=== PATIENT | female | born 1940 | race Caucasian/White ===

== ENCOUNTER 2020-02-02 09:50 | Outpatient (CLI) | payer MEDICARE, SELFPAY ==
--- NOTE | ~2020-02-02 | CT_ITS ---
EXAMINATION: CT abdomen pelvis w con EXAM DATE: 02/02/2020 10:44 INDICATION: Diffuse large B-cell lymphoma. TECHNIQUE: Spiral CT of the abdomen and pelvis was performed following intravenous injection of 100 m L Omnipaque 350. Axial, coronal and sagittal images were reviewed. The dose-length product (DLP) fo r this examination was 989.52 mGy-cm. The exposure was tailored according to patient size (auto mA e xposure control), and iterative reconstruction (ASIR) was used as additional dose reduction technique . Comparison is made to prior examination from 08/31/2019. FINDINGS: Continued interval decrease in size of the left inguinal lymph node, which is difficult to specifically measure given the surrounding halo of fat stranding, but including region measures about 2.3 cm today versus 3.7 cm in August. No other pelvic or retroperitoneal lymphadenopathy. The live r, spleen, adrenal glands and pancreas are unremarkable. Gallbladder is unremarkable. No biliary ob struction. Portal and splenic veins are patent. Kidneys enhance symmetrically. There is no hydrone phrosis. The uterus is unremarkable. Some diffuse bladder wall thickening, could indicate chronic cystitis. Acute cystitis not excludable. There is mild scattered arteriosclerotic disease. The appendix is normal. The stomach and small bowel are unremarkable. There is expected amount of c olonic stool. No free intraperitoneal gas. The heart is normal in size. There are no pericardial or pleural effusions. The lung bases are unremarkable. There are no osteoblastic or osteolytic les ions identified. Moderate to severe thoracolumbar spondylosis. IMPRESSION: Continued interval decrease in size of left inguinal lymph node. Reviewed, dictated and finalized at location A.
[2020-02-02 10:40] LABS: Estimated Glomerular Filt Rate > 60
== END 2020-02-02 09:51 | disposition home or self-care (01) ==
LOC: ANHIMG 09:51
PROVIDERS: PCP Internal Medicine; Visit Provider Internal Medicine Hematology & Oncology
DX: C83.35 Diffuse large B-cell lymphoma, 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 (principal)
CPT/HCPCS: 36415; 74177; 80053; 83615; 85025; Q9967

== ENCOUNTER 2020-05-30 10:40 | Outpatient (CLI) | payer MEDICARE, SELFPAY ==
--- NOTE | ~2020-05-30 | CT_ITS ---
EXAMINATION: CT abdomen pelvis w con INDICATION: Diffuse large cell lymphoma TECHNIQUE: Computed tomographic images of the abdomen and pelvis were obtained after the administrati on of 100 cc of Omnipaque 350 intravenous contrast. The dose-length product (DLP) was 909.13 mGy-cm. Automated exposure control and iterative reconstruction technique were employed. COMPARISON: 02/02/2020, 08/31/2019 FINDINGS: Minimal dependent atelectasis is present in the lung bases. The heart size is normal. The l iver, spleen, pancreas, gallbladder, and adrenal glands are normal. The kidneys are unremarkable. A 2 .8 x 1.7 cm left inguinal lymph node is stable in size. No new lymphadenopathy is identified in the a bdomen or pelvis. There is calcified atherosclerosis of the aorta and many of the other arteries. The re is a tiny fat-containing umbilical hernia. There is severe lumbar spondylosis. There is no free i ntraperitoneal gas or evidence of bowel obstruction. IMPRESSION: 1. Stable left inguinal lymphadenopathy, consistent with treated lymphoma. No new lymphadenopathy [place] ntified. Reviewed, dictated and finalized at location A. IMPRESSION: 1. Stable left inguinal lymphadenopathy, consistent with treated lymphoma. No n ew lymphadenopathy identified.
[2020-05-30 11:35] LABS: Estimated Glomerular Filt Rate > 60
== END 2020-05-30 10:41 | disposition home or self-care (01) ==
PROVIDERS: PCP Internal Medicine; Visit Provider Internal Medicine Hematology & Oncology
DX: C83.35 Diffuse large B-cell lymphoma, 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 (principal)
CPT/HCPCS: 36415; 74177; Q9967

== ENCOUNTER 2020-06-05 10:34 | Outpatient (CLI) | payer MEDICARE, SELFPAY ==
[2020-06-05 10:49] LABS: Basophils Percent Auto 0.9 % (0.2-1.2); Eosinophils Absolute Auto 0.2 K/mm3 (0-0.3); Eosinophils Percent Auto 4.6 % (0-4.4); Hematocrit 39.8 % (37.0-47.0); Hemoglobin 13.3 g/dL (12.0-15.0); Immature Granulocyte Absolute 0.01 K/mm3 (0.00-0.031); Immature Granulocyte Percent A 0.2 % (0-0.5); Lymphocytes Absolute Auto 1.32 K/mm3 (0.9-3.2); Lymphocytes Percent Auto 28.9 % (18.3-44.2); Mean Corpuscular HGB Conc 33.4 g/dl (32-36); Mean Corpuscular Hemoglobin 28.8 pg (26-34); Mean Corpuscular Volume 86.1 fl (80-100); Monocytes Absolute Auto 0.5 K/mm3 (0.1-0.6); Monocytes Percent Auto 11.2 % (2.6-8.5); Neutrophils Absolute Auto 2.5 K/mm3 (1.3-6.7); Neutrophils Percent Auto 54.2 % (45.5-73.1); Platelet Count Result 239 k/mm3 (150-375); Red Blood Count 4.62 M/mm3 (4.2-5.4); Red Cell Distribution Width 14.1 % (11.5-14.5); White Blood Count 4.6 K/mm3 (4.5-10.0)
[2020-06-05 12:26] LABS: Lactate Dehydrogenase 401 U/L (313-618)
[2020-06-05 12:28] LABS: Alanine Aminotransferase 24 U/L (4-35); Albumin Level 4.6 g/dL (3.5-5.1); Alkaline Phosphatase 95 U/L (38-126); Anion Gap 8 mmol/L (8-16); Aspartate Amino Transferase 28 U/L (14-36); Bilirubin,Total 0.4 mg/dL (0.2-1.3); Blood Urea Nitrogen 16 mg/dL (7-17); Calcium 9.7 mg/dL (8.4-10.2); Carbon Dioxide 27 mmol/L (22-30); Chloride 104 mmol/L (98-107); Cholesterol 256 mg/dL (0-200); Estimated Glomerular Filt Rate > 60; Glucose 93 mg/dL (65-105); HDL Direct 64 mg/dL; Potassium 4.3 mmol/L (3.4-5.0); Sodium 139 mmol/L (137-145); Triglycerides 114 mg/dL (<150)
[2020-06-05 12:39] LABS: LDL Cholesterol Direct 154 mg/dL
== END 2020-06-05 10:35 | disposition home or self-care (01) ==
LOC: ANHLAB 10:36
PROVIDERS: PCP Internal Medicine; Visit Provider Internal Medicine Hematology & Oncology
DX: E78.2 Mixed hyperlipidemia (principal)
CPT/HCPCS: 36415; 80053; 80061; 83615; 85025

== ENCOUNTER 2020-06-12 09:14 | Outpatient (CLI) | payer MEDICARE, SELFPAY ==
--- NOTE | 2020-06-12 09:15 | ECG_ITS ---
Measurements Intervals [place] Rate: 70 P: 62 RI: 177 QRS: -16 QRSD: 95 T: 33 QT: 381 QTc: 411 Interpretive Statements SINUS RHYTHM BASELINE ARTIFACT- I, II, III, AVR, AVL, AVF NORMAL ECG Electronically Signed On 06-12-2020 10:37:32 CDT by Jose Finn D.O.
== END 2020-06-12 09:15 | disposition home or self-care (01) ==
PROVIDERS: PCP Internal Medicine; Visit Provider Surgery
DX: E78.5 Hyperlipidemia, unspecified (principal)
CPT/HCPCS: 93005

== ENCOUNTER 2020-06-13 03:42 | Outpatient (CLI) | payer MEDICARE, SELFPAY ==
[2020-06-13 18:37] LABS: SARS-CoV-2 RNA PCR Negative
== END 2020-06-13 03:43 | disposition home or self-care (01) ==
LOC: ANHCOVIDDT 03:44
PROVIDERS: PCP Internal Medicine; Visit Provider Surgery
DX: Z01.812 Encounter for preprocedural laboratory examination (principal); Z20.828 Contact with and (suspected) exposure to other viral communicable diseases
CPT/HCPCS: 87635; C9803; U0003

== ENCOUNTER 2020-06-15 01:10 | Day surgery (SDC) | payer MEDICARE, SELFPAY ==
[2020-06-08 14:06] VITALS: BMI 31.6
[2020-06-15] MEDS: LACTATED RINGERS 1,000 ML 30 ML IV CONT (08:22)
--- NOTE | 2020-06-15 08:29 | PM.IMHP ---
H&P: HPI History of Present Illness Date/Time: 06/15/20 08:29 Chief complaint: Diffuse Large B-Cell Lymphoma Narrative: Kate Ryder is a 79 year old female s/p chemoradiation for diffuse large B cell lymphoma. Pt had R SCV VAD placed 05/[address] Mcmillan. Pt reports no issues c VAD but tx completed 07/31 and radiation completed 09/30. Pt has been following up c oncology and at this point she has been scheduled for VAD removal. Review of Systems Constitutional: Constitutional: Denies body ache(s), Denies chills, Denies fatigue, Denies lethargy, Denies night sweats and Denies weakness Eyes: Eyes: Denies no additional eye complaints ENT: Denies Normal hearing present and Denies dysphagia Cardiovascular: Cardiovascular: Denies chest pain and Denies palpitations Respiratory: Respiratory: Denies dyspnea and Denies dyspnea on exertion Gastrointestinal: Gastrointestinal: Denies abdominal pain, Denies constipation, Denies diarrhea, Denies nausea and Denies vomiting Genitourinary: Genitourinary: Reports no additional female genitourinary complaints Musculoskeletal: Musculoskeletal: Reports no additional musculoskeletal complaints Integumentary/Breasts: Skin/Breast: Reports system reviewed and no additional complaints, except as docu Neurologic: Reports system reviewed and no additional complaints, except as documented Psychiatric: Psychiatric: Reports no additional psychiatric complaints [facility] Family History Family History Father Family history of osteoporosis Family history of hearing loss Mother Family history of osteoporosis Hypertension Asthma Cerebrovascular accident Family history of hearing loss Social History Social History Smoking status: Never smoker Alcohol intake: current Drinks per week: 3 Alcohol use details: WINE Living arrangements: with family Spiritual care concerns: No Meds Home Medications and Allergies Home Medications Medication Instructions Recorded Confirmed Type omeprazole 40 mg PO DAILY 07/30/19 06/08/20 History calcium carbonate 600 mg calcium 600 mg PO DAILY 09/29/19 06/08/20 History (1,500 mg) tablet cranberry concentrate-ascorbic 1 cap PO DAILY 09/29/19 06/08/20 History acid 4,200 mg-20 mg capsule multivitamin 1 tablet PO DAILY 09/29/19 06/08/20 History omega-3 fatty acids 1,000 mg 1,000 mg PO DAILY 09/29/19 06/08/20 History capsule vitamin B complex 1 tablet PO DAILY 09/29/19 06/08/20 History atorvastatin 40 mg tablet 40 mg PO DAILY #90 tablet 06/08/20 06/08/20 Rx Allergies Allergy/AdvReac Type Severity Reaction Status Date / Time adhesive tape Allergy Mild RASH Verified 06/08/20 13:40 aspirin Allergy Mild HIVES Verified 06/08/20 13:40 naproxen Allergy Mild HIVES Verified 06/08/20 13:40 avocado Allergy Unknown feel like Verified 06/08/20 13:40 having flu egg Allergy Unknown Hives Verified 06/08/20 13:40 ibuprofen Allergy Unknown Hives Verified 06/08/20 13:40 Exam Const: General: no acute distress HENMT: Mouth: Yes moist mucous membranes Eyes: General: appearance normal, both eyes and all related structures Pupils: Equal, round and reactive pupils present EOM: EOMs intact bilaterally Neck: Neck: supple and no JVD Lymphatic: lymphadenopathy not noted Resp: Auscultation: clear to auscultation bilaterally Other: R SCV VAD C/D/I Cardio: Rate: regular rate Rhythm: regular rhythm GI: Inspection: non-distended GI Palp: Yes Soft to palpation, Yes Firmness to palpation present (GI), No Tenderness to palpation present (GI) and No Hernia present Skin: General skin exam: normal color and no rashes or lesions noted Neuro: Speech: normal speech Extrem: General: normal to inspection Psych: Mental Status: mental status grossly normal Assessment and Plan Assessment and plan (1) Diffuse large B-cell lymphoma:
--- NOTE | 2020-06-15 08:35 | WPDHPUPDATE1 ---
History and Physical Update Update Date/Time: 06/15/20 08:35 History and Physical has been reviewed, including an updated exam of the patient. There are NO changes in the patient's condition. Risks, benefits, and alternatives have been discussed and questions answered. Patient agrees to proceed with procedure.
[2020-06-15 08:57] VITALS: BP 125/89; PULSE 87; RESP 18; TEMP 36.9; O2SAT 100
--- NOTE | 2020-06-15 09:09 | WPDANESEPPF ---
Anes - Initial Pre Proc Eval Procedure: Operation Date: 06/15/20 09:30 Proposed Procedures p Removal Hien Cath - Natalie Craft MD Date/Time: 06/15/20 09:09 Surgeon: Natalie Craft MD Pre Op Diagnosis: Diffuse Large B-Cell Lymphoma Patient Data Age: 79 Gender: F Height: 5 ft 6 in Weight: 88.3 kg Last Vital Signs Temp 36.9 C 06/15/20 08:57 Pulse 87 06/15/20 08:57 Resp 18 06/15/20 08:57 BP 125/89 06/15/20 08:57 Pulse Ox 100 06/15/20 08:57 Allergies Allergy/AdvReac Type Severity Reaction Status Date / Time adhesive tape Allergy Mild RASH Verified 06/15/20 08:55 aspirin Allergy Mild HIVES Verified 06/15/20 08:55 naproxen Allergy Mild HIVES Verified 06/15/20 08:55 avocado Allergy Unknown feel like Verified 06/15/20 08:55 having flu egg Allergy Unknown Hives Verified 06/15/20 08:55 ibuprofen Allergy Unknown Hives Verified 06/15/20 08:55 Home Medications Medication Instructions Recorded Confirmed Type omeprazole 40 mg PO DAILY 07/30/19 06/15/20 History calcium carbonate 600 mg calcium 600 mg PO DAILY 09/29/19 06/15/20 History (1,500 mg) tablet cranberry concentrate-ascorbic 1 cap PO DAILY 09/29/19 06/15/20 History acid 4,200 mg-20 mg capsule multivitamin 1 tablet PO DAILY 09/29/19 06/15/20 History omega-3 fatty acids 1,000 mg 1,000 mg PO DAILY 09/29/19 06/15/20 History capsule vitamin B complex 1 tablet PO DAILY 09/29/19 06/15/20 History atorvastatin 40 mg tablet 40 mg PO DAILY #90 tablet 06/08/20 06/15/20 Rx Patient hx anesthesia problems: none Family hx anesthesia problems: none PMFSH Family History Family History Father Family history of osteoporosis Family history of hearing loss Mother Family history of osteoporosis Hypertension Asthma Cerebrovascular accident Family history of hearing loss Social History Social History Smoking status: Never smoker Alcohol intake: current Drinks per week: 3 Alcohol use details: WINE Living arrangements: with family Spiritual care concerns: No Anes - Eval Final PreProcedure Day of Procedure 06/15/20 09:09 Patient weight: obese Heart: regular rate and rhythm Lungs: clear to auscultation Airway: Mallampati scale class II Neurological: alert and oriented Last oral intake: >/= 8 hours ASA classification: III Emergent: no Anesthesia type and monitoring: general GIVS and standard monitoring Informed Consent: The patient's anesthetic plan and its attendant risks and benefits were discussed with the patient/family/POA. Questions were solicited and answers provided to the satisfaction of the patient/family/POA.
[2020-06-15] MEDS: ceFAZolin 2 GM/D5W 50 ML 2 GM/50 ML BAG IVPB (09:52)
[2020-06-15] MEDS: BUPIVACAINE/EPINEPHRINE 0.5% 30 ML VIAL 20 ML INFILTRATE (10:05)
[2020-06-15 10:20] VITALS: BP 112/52; PULSE 81; RESP 14; O2SAT 97
--- NOTE | 2020-06-15 10:22 | PM.PROC ---
Procedure Note - Detailed Date of procedure: 06/15/20 Pre-op diagnosis: Diffuse Large B-Cell Lymphoma Post-op diagnosis: same Procedure performed: Removal right chest venous access device Description of procedure: The patient was taken to the operating room placed in the supine position. After adequate induction of MAC anesthesia, the patient was prepped and draped in the normal sterile fashion. A time-out was then done to verify the patient's identity, as well as the procedure being performed. I began by localizing the previous incision line in the right chest and around the port itself. Once this was done, I made an incision through the old incision to the level of the port. I then bluntly dissected around the port, and located the 3 sutures holding the port in place. I then cut the 3 sutures and removed the port from the pocket. I was then able to remove the port and catheter in full. The catheter was noted in the right subclavian vein. I then held pressure at the level of the right subclavian vein for approximately 5 minutes. Hemostasis was noted after pressure was held. I then localized the pocket further and closed the subcutaneous tissue with 3 0 Vicryl suture. I then closed the skin with 4 O Monocryl subcuticular suture. Dermabond was then placed on the wound. The patient tolerated the procedure well, was alert and awake in the operating room postoperatively, and will be transferred to the recovery in stable condition. Implants: none Anesthesia: MAC and local Surgeon: Natalie Craft MD Estimated blood loss (mL): 5 Drains: No Packing: No Pathology: none sent Complications: No immediate complications Condition: stable Disposition: PACU Findings: right-sided VAD
[2020-06-15 10:50] VITALS: BP 162/75; PULSE 77; RESP 16
== END 2020-06-15 11:45 | disposition home or self-care (01) ==
PROVIDERS: PCP Internal Medicine; Visit Provider Surgery
PROC: (CPT 36589; principal; 2020-06-15 09:30)
DX: Z45.2 Encounter for adjustment and management of vascular access device (principal); Z85.72 Personal history of non-Hodgkin lymphomas; Z92.21 Personal history of antineoplastic chemotherapy; Z92.3 Personal history of irradiation; K21.9 Gastro-esophageal reflux disease without esophagitis; E78.5 Hyperlipidemia, unspecified; F33.0 Major depressive disorder, recurrent, mild
CPT/HCPCS: 36590; J0690; J2001; J2704; J3010; J7120

== ENCOUNTER 2020-08-16 13:47 | Outpatient (CLI) | payer MEDICARE, SELFPAY ==
--- NOTE | ~2020-08-16 | MM_ITS ---
EXAMINATION: MM screening morena BI w calvin HISTORY: Screening TECHNIQUE: Craniocaudal and mediolateral oblique 3-D tomosynthesis images were obtained and synthetic 2-D images were generated. CAD analysis was submitted and interpreted. COMPARISON: Comparison to multiple prior studies sequentially, with oldest reviewed study dated 10/2017. BREAST PARENCHYMAL COMPOSITION: There are scattered areas of fibroglandular density. FINDINGS: There is no evidence of suspicious mass, calcification, or architectural distortion to sugg est malignancy in either breast. There has been no suspicious interval change. IMPRESSION: 1. No mammographic evidence of malignancy. 2. Recommend routine screening mammography in one year. BI-RADS Category 1: Negative Reviewed, dictated and finalized at location D. FLEET MAINTENANCE MANAGER
--- NOTE | ~2020-08-16 | DEXA_ITS ---
Bone Density Report Name: Kate Ryder Age: 79 Sex: Female Ethnicity: White Date of : 1940 Indication: postmenopausal; height loss; cancer; Referring Provider: DARRICK SAENZ Study: Bone densitometry was performed. Exam Date: August 16, 2020 Accession number: [id number] Bone Density: Region BMD T-score Z-score Classification AP Spine (L1-L4) 1.179 1.2 3.8 Normal Femoral Neck (Left) 0.675 -1.6 0.6 Osteopenia Total Hip (Left) 0.871 -0.6 1.4 Normal Total Hip Bilateral Avg 0.894 -0.4 1.6 Normal Femoral Neck (Right) 0.716 -1.2 1.0 Osteopenia Total Hip (Right) 0.917 -0.2 1.7 Normal World Health Organization criteria for BMD impression classify patients as: Normal (T-score at or above -1.0), Osteopenia (T-score between -1.0 and -2.5), or Osteoporosis (T-score at or below -2.5). 10-year Fracture Risk(1): Major Osteoporotic Fracture 12% Hip Fracture 2.6% Reported Risk Factors: [place] (), Neck BMD=0.675, BMI=32.1 (1) FRAX(R) Version 3.08. Fracture probability calculated for an untreated patient. Fracture probability may be lower if the patient has received treatment. Previous Exams: Region Exam Age BMD T-score BMD Change BMD Change Date g/cm2 vs Baseline vs Previous AP Spine(L1-L4) 08/16/2020 79 1.179 1.2 -0.016(-1.4%) -0.016(-1.4%) 02/10/2018 77 1.195 1.3 Total Hip(Left) 08/16/2020 79 0.871 -0.6 -0.022(-2.5%) -0.022(-2.5%) 02/10/2018 77 0.893 -0.4 Total Hip(Right) 08/16/2020 79 0.917 -0.2 0.000(0.0%) 0.000(0.0%) 02/10/2018 77 0.917 -0.2 *Denotes significance at 95% confidence level, LSC for AP Spine = 0.022 g/cm2, LSC for Total Hip = 0.027 g/cm2 Clinical Information Provided by Patient: Has used the following medications: Calcium Has the following medical conditions: Cancer Patient maximum height was 68 Menopause Age: 55 No regular weight bearing exercise Onset of menses at age 14 Number of children 2 Impression: The patient has low bone mass, based on the Left Femoral Neck T-score. The patient has an estimated ten-year risk of hip fracture of 2.6% and an estimated ten-year risk of major fracture of 12%, based on the WHO FRAX algorithm. No significant bone loss was observed. Discussion: BONE DENSITY IS LOW AT ONE OR MORE SKELETAL SITES. This patient's lowest T-score is low at one or more skeletal sites. It meets the World Health Organization's (WHO) criteria for ?low bone mass? (T-
== END 2020-08-16 13:48 | disposition home or self-care (01) ==
LOC: ANHIMG 13:49
PROVIDERS: PCP Internal Medicine; Visit Provider Internal Medicine
DX: Z12.31 Encounter for screening mammogram for malignant neoplasm of breast (principal); C83.30 Diffuse large B-cell lymphoma, unspecified site; E78.2 Mixed hyperlipidemia; Z78.0 Asymptomatic menopausal state; M85.852 Other specified disorders of bone density and structure, left thigh; M85.851 Other specified disorders of bone density and structure, right thigh
CPT/HCPCS: 77063; 77067; 77080

== ENCOUNTER 2020-12-21 09:32 | Outpatient (CLI) | payer MEDICARE, SELFPAY ==
[2020-12-21 09:47] LABS: Basophils Percent Auto 0.7 % (0.2-1.2); Eosinophils Absolute Auto 0.2 K/mm3 (0-0.3); Eosinophils Percent Auto 3.1 % (0-4.4); Hemoglobin 13.5 g/dL (12.0-15.0); Immature Granulocyte Absolute 0.02 K/mm3 (0.00-0.031); Immature Granulocyte Percent A 0.3 % (0-0.5); Lymphocytes Absolute Auto 1.47 K/mm3 (0.9-3.2); Lymphocytes Percent Auto 25.1 % (18.3-44.2); Mean Corpuscular HGB Conc 32.9 g/dl (32-36); Mean Corpuscular Hemoglobin 29.2 pg (26-34); Mean Corpuscular Volume 88.6 fl (80-100); Mean Platelet Volume 8.9 fl (7.4-10.4); Monocytes Absolute Auto 0.5 K/mm3 (0.1-0.6); Monocytes Percent Auto 8.5 % (2.6-8.5); Neutrophils Absolute Auto 3.6 K/mm3 (1.3-6.7); Neutrophils Percent Auto 62.3 % (45.5-73.1); Platelet Count Result 248 k/mm3 (150-375); Red Blood Count 4.63 M/mm3 (4.2-5.4); Red Cell Distribution Width 13.2 % (11.5-14.5); White Blood Count 5.9 K/mm3 (4.5-10.0)
[2020-12-21 12:06] LABS: Alanine Aminotransferase 21 U/L (4-35); Albumin Level 4.4 g/dL (3.5-5.1); Alkaline Phosphatase 87 U/L (38-126); Anion Gap 8 mmol/L (8-16); Aspartate Amino Transferase 26 U/L (14-36); Bilirubin,Total 0.4 mg/dL (0.2-1.3); Blood Urea Nitrogen 14 mg/dL (7-17); Calcium 9.5 mg/dL (8.4-10.2); Carbon Dioxide 29 mmol/L (22-30); Chloride 107 mmol/L (98-107); Cholesterol 168 mg/dL (0-200); Estimated Glomerular Filt Rate > 60; Glucose 89 mg/dL (65-105); HDL Direct 64 mg/dL; Potassium 4.5 mmol/L (3.4-5.0); Sodium 144 mmol/L (137-145); Triglycerides 119 mg/dL (<150)
[2020-12-21 12:17] LABS: LDL Cholesterol Direct 72 mg/dL
[2020-12-21 12:22] LABS: Vitamin D 25 Hydroxy 47.6 ng/mL
== END 2020-12-21 09:33 | disposition home or self-care (01) ==
LOC: ANHLAB 09:35
PROVIDERS: PCP Internal Medicine; Visit Provider Internal Medicine
DX: C83.30 Diffuse large B-cell lymphoma, unspecified site (principal); E78.2 Mixed hyperlipidemia; M85.89 Other specified disorders of bone density and structure, multiple sites
CPT/HCPCS: 36415; 80053; 80061; 82306; 84443; 85025

== ENCOUNTER → 2021-01-12 05:19 | Outpatient (CLI) | payer MEDICARE, SELFPAY ==
[2021-01-12 19:22] LABS: SARS-CoV-2 RNA PCR Negative
== END ==
PROVIDERS: PCP Internal Medicine; Visit Provider Internal Medicine Critical Care Medicine
DX: Z01.812 Encounter for preprocedural laboratory examination (principal); Z20.822 Contact with and (suspected) exposure to COVID-19
CPT/HCPCS: C9803; U0003; U0005

== ENCOUNTER 2021-01-15 09:03 | Outpatient (CLI) | payer MEDICARE, SELFPAY ==
--- NOTE | 2021-01-25 10:08 | WPDSLEEPSTUD ---
Sleep Study Ordering Provider: Miguel Ángel White MD Interpreting Physician: Donn Skelton MD Sleep Study Type: CPAP Titration Height: 1.68 m Weight: 90.718 kg Body Mass Index: 32.3 Neck Circumference (inches): 15 [place]: 12 Reason for Sleep Study Patient had a prior sleep study in 2017 which documented presence of severe obstructive sleep apnea. Patient has been using CPAP therapy however she continues to have significant symptomatology including daytime fatigue and daytime sleepiness with an [place] score of 12/24. Patient has comorbid conditions which include hypertension, hypercholesterolemia and gastroesophageal reflux disease. Patient was referred for repeat CPAP titration for these reasons Sleep History history of snoring, daytime sleepiness, daytime fatigue and frequent nocturnal arousals. [facility] Family History Family History Father Family history of osteoporosis Family history of hearing loss Mother Family history of osteoporosis Hypertension Asthma Cerebrovascular accident Family history of hearing loss Social History Social History Smoking status: Never smoker Alcohol intake: current Drinks per week: 3 Spiritual care concerns: No Medications Home Medications Medication Instructions Recorded Confirmed Type calcium carbonate 600 mg calcium 600 mg PO DAILY 09/29/19 12/22/20 History (1,500 mg) tablet cranberry concentrate-ascorbic 1 cap PO DAILY 09/29/19 12/22/20 History acid 4,200 mg-20 mg capsule multivitamin 1 tablet PO DAILY 09/29/19 12/22/20 History omega-3 fatty acids 1,000 mg 1,000 mg PO DAILY 09/29/19 12/22/20 History capsule vitamin B complex 1 tablet PO DAILY 09/29/19 12/22/20 History atorvastatin 40 mg tablet See Rx Instructions .ROUTE 12/04/20 12/22/20 Rx .COMPLEX #90 tablet lisinopril 20 mg tablet 20 mg PO DAILY #30 tablet 12/22/20 12/22/20 Rx omeprazole 40 mg capsule,delayed See Rx Instructions .ROUTE 12/28/20 Rx release .COMPLEX #90 capsule Sleep Procedure Patient underwent overnight polysomnography for the purpose of CPAP titration. Patient used her own mask. The type of mask was not mentioned. Sleep Architecture Total recording time 392 minutes, total sleep time 331 minutes, sleep efficiency 84.6%. Sleep latency 33 minutes, REM latency 55 minutes. Awake after sleep onset 28 minutes, stage N1 1.4%, N2 81%, N3 3.5% and stage R 14.2%. supine sleep 100%. Respiratory Analysis [facility] criteria used During titration patient had 3 obstructive apneas with index 0.5, there were 4 hypopneas with index 0.9. AHI 1.4 all events occurred in non-REM sleep and in supine position. Arousals Total arousals 87 with index 13.3, spontaneous arousals 70,, hypopnea arousals 5, apnea arousals 2. snores arousal 10. Periodic Limb Movements There were no limb movements. Oximetry Data Mean oxygen saturation 95%, lowest saturation 89%. SaO2<90%-0.2Min. Snoring Profile mild intermittent snoring. Cardiac Profile Normal sinus rhythm with average heart rate 62 beats per minute. Range 30 to 127 beats per minute. EEG Profile Unremarkable EEG. Assessment and Plan Additional Plan Diagnosis KELLY G47.37 CPAP data- CPAP was started at 5 cm and was quickly increased to 7 cm due to air hunger. Because of obstructive events CPAP was increased to 9 cm which was the highest pressure reached. At CPAP of 9 cm, 3 hours and 42 minutes of trial was performed with 91% sleep efficiency. 24 minutes and 30 seconds of REM sleep and 2 hours and 55 minutes of non-REM sleep was encountered, all of it in supine position. Patient had 1 obstructive apnea and 1 hypopnea with AHI 0.6. Oxygen saturation remained 94% or above averaging 96%. CPAP appeared well tolerated. Recommendation - patient should continue use of CPAP but at a lower pressure of 9 cm., using appr
[2021-01-25 10:26] VITALS: BMI 32.3
== END 2021-01-15 09:04 | disposition home or self-care (01) ==
LOC: ANHCSM 09:04
PROVIDERS: PCP Internal Medicine; Visit Provider Internal Medicine
DX: R06.83 Snoring (principal); G47.37 Central sleep apnea in conditions classified elsewhere
CPT/HCPCS: 95811

== ENCOUNTER 2021-02-09 12:39 | Outpatient (CLI) | payer MEDICARE, SELFPAY ==
--- NOTE | ~2021-02-09 | CT_ITS ---
EXAMINATION: CT abdomen pelvis w con EXAM DATE: 02/09/2021 13:16 INDICATION: Diffuse large b-cell lymphoma, lymph nodes of inguinal region. TECHNIQUE: Spiral CT of the abdomen and pelvis was performed following intravenous injection of 100 m L Omnipaque 350. Axial, coronal and sagittal images of the abdomen and pelvis were reviewed. The do se-length product (DLP) for this examination was 961.49 mGy-cm. The exposure was tailored according to patient size (auto mA exposure control), and iterative reconstruction (ASIR) was used as additiona l dose reduction technique. Comparison is made to prior examination from 05/30/2020. FINDINGS: Ill-defined low-density region in the left inguinal canal, probably treated lymphoma, appea celio is unchanged compared to prior examination. No retroperitoneal lymphadenopathy. The liver, sple en, adrenal glands and pancreas are unremarkable. Gallbladder is unremarkable. No biliary obstructi on. Portal and splenic veins are patent. Kidneys enhance symmetrically. There is no hydronephrosis . The uterus is anteverted and morphologically normal. The bladder is unremarkable. There are no findings to suggest appendicitis. The stomach and small bowel are unremarkable. There is expected amount of colonic stool. No free intraperitoneal gas. The heart is normal in size. T here are no pericardial or pleural effusions. The lung bases are unremarkable. There are no osteobl astic or osteolytic lesions identified. Advanced thoracolumbar spondylosis. IMPRESSION: Stable ill-defined left inguinal lymph node, treated lymphoma. Reviewed, dictated and finalized at location A.
== END 2021-02-09 12:40 | disposition home or self-care (01) ==
PROVIDERS: PCP Internal Medicine; Visit Provider Internal Medicine Hematology & Oncology
DX: C83.35 Diffuse large B-cell lymphoma, 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 (principal)
CPT/HCPCS: 74177; Q9967

== ENCOUNTER 2021-03-29 11:54 | Outpatient (CLI) | payer MEDICARE, SELFPAY ==
[2021-03-29 17:14] LABS: Anion Gap 10 mmol/L (8-16); Blood Urea Nitrogen 16 mg/dL (7-17); Carbon Dioxide 26 mmol/L (22-30); Chloride 105 mmol/L (98-107); Estimated Glomerular Filt Rate > 60; Glucose 92 mg/dL (65-105); Potassium 4.4 mmol/L (3.4-5.0); Sodium 141 mmol/L (137-145)
== END 2021-03-29 11:55 | disposition home or self-care (01) ==
LOC: ANHLAB 11:59
PROVIDERS: PCP Internal Medicine; Visit Provider Internal Medicine Hematology & Oncology
DX: I10 Essential (primary) hypertension (principal)
CPT/HCPCS: 36415; 80048

== ENCOUNTER → 2021-10-31 01:22 | Outpatient (CLI) | payer MEDICARE, SELFPAY ==
[2021-10-31 13:51] LABS: Influenza A QL RT-PCR Negative (Negative); Influenza B QL RT-PCR Negative (Negative); SARS-CoV-2 RNA PCR Negative
== END ==
PROVIDERS: PCP Internal Medicine; Visit Provider Internal Medicine
DX: R68.89 Other general symptoms and signs (principal); Z20.822 Contact with and (suspected) exposure to COVID-19
CPT/HCPCS: 87502; C9803; U0003; U0005

== ENCOUNTER 2021-12-21 13:59 | Outpatient (CLI) | payer MEDICARE, SELFPAY ==
--- NOTE | ~2021-12-21 | CT_ITS ---
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 Additional sagittal and coronal reconstructions were performed. Automated exposure co ntrol and iterative reconstruction technique were employed. The dose-length product was 485.96 mGy-cm . COMPARISON: Left shoulder radiographs dated 05/09/2021 FINDINGS: Bone alignment is normal. No fracture. Chondrocalcinosis along the humeral head and glenoid. Glenohumeral osteoarthritis with m ild nonuniform joint space narrowing, small marginal osteophytes along the glenoid and moderate-sized marginal osteophytes about the humeral head. Cystic change at the middle facet of the greater tubero sity which can be seen in setting of rotator cuff disease. Mild acromion clavicular osteoarthritis. S oft tissues are normal. The left shoulder with no evident asymmetric muscular atrophy of the rotator cuff or shoulder girdle. Small pneumatocele in the superior segment of the left lower lobe. No pathol ogically enlarged lymphadenopathy at the left axillary visualized left neck or chest. IMPRESSION: 1. Mild to moderate left glenohumeral osteoarthritis with chondrocalcinosis. 2. Mild acromioclavicular osteoarthritis. 3. Cystic change at the middle facet of the greater tuberosity which can be seen in the setting of in fraspinatus tendon rotator cuff disease. Reviewed, dictated and finalized at location A. FINISHER IMPRESSION: 1. Mild to moderate left glenohumeral osteoarthritis with chondrocalcinosis. 2. Mild acromioclavicular osteoarthritis. 3. Cystic change at the middle facet of the greater tuberosity which can be see n in the setting of infraspinatus tendon rotator cuff disease.
== END 2021-12-21 14:00 | disposition home or self-care (01) ==
PROVIDERS: PCP Internal Medicine
DX: M19.012 Primary osteoarthritis, left shoulder (principal)
CPT/HCPCS: 73200

== ENCOUNTER 2022-02-15 14:24 | Outpatient (CLI) | payer MEDICARE, SELFPAY ==
--- NOTE | ~2022-02-15 | CT_ITS ---
EXAMINATION: CT abdomen pelvis w con DATE: 02/15/2022 14:48 INDICATION: Diffuse large B-cell lymphoma. TECHNIQUE: Computed tomography (CT) of the abdomen and pelvis was performed with 100 mL Omnipaque 300 intravenous contrast. Automated exposure control and iterative reconstruction technique were employe d. The dose-length product was 1001.38 mGy-cm. COMPARISON: CT abdomen and pelvis 02/09/2021 FINDINGS: The visualized portions of the lung bases demonstrate mild atelectasis. No pleural effusion . The heart size is normal. No pericardial effusion. The liver, spleen, pancreas, gallbladder, adrena l glands, and right kidney are normal. There is a 6 mm cyst in left kidney. There are no dilated loop s of bowel. There is diverticulosis of the colon without evidence of diverticulitis. The appendix is not visualized. There are no pathologically enlarged lymph nodes. Again seen is fat stranding in the left inguinal region, consistent with scarring from treated lymphoma. There is no free intraperitonea l fluid. Is lumbar dextrocurvature and severe spondylosis. IMPRESSION: 1. No evidence of malignancy. Reviewed, dictated and finalized at location A.
== END 2022-02-15 14:25 | disposition home or self-care (01) ==
LOC: ANHIMG 14:25
PROVIDERS: PCP Internal Medicine; Visit Provider Internal Medicine Hematology & Oncology
DX: C83.35 Diffuse large B-cell lymphoma, 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 (principal)
CPT/HCPCS: 74177; Q9967

== ENCOUNTER 2022-04-22 12:30 | Outpatient (RCR) | payer MEDICARE, SELFPAY ==
--- NOTE | 2022-04-17 15:32 | PTOPEVAL ---
PHYSICAL THERAPY EVALUATION AND PLAN OF CARE Thank you for referring Kate Ryder to [facility].? The patient is scheduled to be seen for therapy? 2x/week for 4 weeks. Please review, sign, date and return this plan of care DANIEL. I agree with and certify that the following plan of care is medically necessary. Referring Physician Date Attending Provider: Earnest Fortune MD Diagnosis total reverse replacement of left shoulder Onset 03/25/22 Subjective Information Chronic history of left Query Text:As Reported By Patient/ shoulder pain for greater than Family a year. total reverse shoulder arthroplasty ~3 weeks ago. Here for evaluation and treatment in physical therapy. Today has a limitation to perform A/AROM and PROM only and external rotation is limited to 30deg at this time. Has a sling that she wears nearly all the time. Does use her hands and but is not using her left shoulder. Self Report Pain Assessment Left Shoulder(s) Reported Pain Level 1 Pain Description Aching,Heavy Greatest Pain Intensity 2 Pain Score Pain Score 1: Self Report Interventions Used Interventions Used By Clinicians Exercise Pain Relief Interventions Used By Ice,Medication Patient Upper Extremity Range of Motion Scapular/ Shoulder Range of Motion Left Shoulder Flexion - Passive 75 Shoulder Lateral Rotation - Passive 22 Upper Extremity Muscle Strength Testing General Upper Extremity Strength Gross Upper Extremity Strength Comments deferred shoulder testing due to surgical precaution; symmetrical staff nurse midwife strength; normal elbow strength PT Clinical Summary Kate is a 81 yo female presenting to outpatient physical therapy 3 wks s/p left total reverse shoulder arthroplasty. She has well managed pain. Incision site is clean with a small scab at proximal end of incision. Incision does have some thickening and instructed her to take regular lotion to and massage the scar avoiding the scab. She demonstrates 75deg passive elevation
--- NOTE | 2022-04-24 15:34 | PCPTNOTE ---
Patient called & cancelled scheduled appointment this date due to to being episode to Covid.
--- NOTE | 2022-05-06 13:10 | PCPTNOTE ---
Patient called & cancelled scheduled appointment this date due to still being tested positive for COVID-19.
--- NOTE | 2022-05-09 09:40 | PCPTNOTE ---
Patient called & cancelled scheduled appointment this date due to having Covid.
--- NOTE | 2022-05-22 08:24 | PCPTNOTE ---
PHYSICAL THERAPY DISCHARGE NOTE Attending Provider: Earnest Fortune Patient:Kate Ryder Date of :1940 Patient has not returned for any further treatments since 04/22/2022, therefore will be discharged at this time. Patient?s initial visit was on 04/17/2022 and had a total of 2 visits. She attended the 2 visits then cancelled all remaining visits due to diagnosis of COVID-19. She will need a new referral for physical therapy if further services are needed. Thank you for referring this patient to [facility]. Please review, sign, date and return this discharge summary DANIEL. I have been updated about the patient's current status and I agree with discharge from the above service at this time. Referring Physician Date
== END 2022-05-22 12:27 | disposition home or self-care (01) ==
LOC: ANHPT 12:30
PROVIDERS: PCP Internal Medicine
DX: Z48.89 Encounter for other specified surgical aftercare (principal)
CPT/HCPCS: 97110; 97140; 97162; 97530

== ENCOUNTER 2022-08-15 14:21 | Outpatient (CLI) | payer MEDICARE, SELFPAY ==
--- NOTE | ~2022-08-15 | MM_ITS ---
EXAMINATION: MM screening [facility] BI w calvin HISTORY: Screening TECHNIQUE: Craniocaudal and mediolateral oblique 3-D tomosynthesis images were obtained and synthetic 2-D images were generated. CAD analysis was submitted and interpreted. COMPARISON: Comparison to multiple prior studies sequentially, with oldest reviewed study dated 10/2017. BREAST PARENCHYMAL COMPOSITION: Breast composed of scattered areas of fibroglandular density FINDINGS: There is no evidence of suspicious mass, calcification, or architectural distortion to sugg est malignancy in either breast. There has been no suspicious interval change. IMPRESSION: 1. No mammographic evidence of malignancy. 2. Recommend routine screening mammography in one year. BI-RADS Category 1: Negative Reviewed, dictated and finalized at location A.
== END 2022-08-15 14:22 | disposition home or self-care (01) ==
PROVIDERS: PCP Internal Medicine; Visit Provider Nurse Practitioner
DX: Z12.31 Encounter for screening mammogram for malignant neoplasm of breast (principal)
CPT/HCPCS: 77063; 77067

== ENCOUNTER 2022-08-20 10:40 | Outpatient (CLI) | payer MEDICARE, SELFPAY ==
--- NOTE | ~2022-08-20 | CT_ITS ---
EXAMINATION: CT abdomen pelvis w con INDICATION: Diffuse large B-cell lymphoma TECHNIQUE: Computed tomographic images of the abdomen and pelvis were obtained after the administrati on of 100 cc of Omnipaque 350 intravenous contrast. The dose-length product (DLP) was 953.24 mGy-cm. Automated exposure control and iterative reconstruction technique were employed. COMPARISON: 02/15/2022 FINDINGS: The lung bases are clear. The heart size is normal. The liver, spleen, pancreas, gallbladde r, and adrenal glands are normal. The right kidney is unremarkable. There is a 7 mm cyst of the left kidney. No pathologically enlarged abdominal or pelvic lymph nodes are identified. There is no free i ntraperitoneal gas or evidence of bowel obstruction. Scarring is again noted in the left inguinal reg ion, consistent with treated lymphoma. There is severe lumbar spondylosis. There is a small umbilica l hernia containing fat. IMPRESSION: 1. No pathologically enlarged abdominal or pelvic lymph nodes. Reviewed, dictated and finalized at location B. MS COUNSEL
[2022-08-20 11:00] LABS: Estimated Glomerular Filt Rate 60
== END 2022-08-20 10:41 | disposition home or self-care (01) ==
PROVIDERS: PCP Internal Medicine; Visit Provider Internal Medicine Hematology & Oncology
DX: C83.35 Diffuse large B-cell lymphoma, 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 (principal)
CPT/HCPCS: 74177; Q9967

== ENCOUNTER 2023-01-03 13:06 | Outpatient (CLI) | payer MEDICARE, SELFPAY ==
[2023-01-03 15:54] LABS: Alanine Aminotransferase 33 U/L (6-35); Albumin Level 4.7 g/dL (3.5-5.1); Alkaline Phosphatase 84 U/L (38-126); Anion Gap 8 mmol/L (8-16); Aspartate Amino Transferase 35 U/L (14-36); Bilirubin,Total 0.6 mg/dL (0.2-1.3); Blood Urea Nitrogen 14 mg/dL (7-17); Calcium 9.7 mg/dL (8.4-10.2); Carbon Dioxide 27 mmol/L (22-30); Chloride 104 mmol/L (98-107); Cholesterol 174 mg/dL (0-200); Estimated Glomerular Filt Rate > 60; Glucose 83 mg/dL (65-110); HDL Direct 40 mg/dL; Potassium 4.2 mmol/L (3.4-5.0); Sodium 139 mmol/L (137-145); Triglycerides 148 mg/dL (<150)
[2023-01-03 16:06] LABS: LDL Cholesterol Direct 83 mg/dL
== END 2023-01-03 13:07 | disposition home or self-care (01) ==
LOC: ANHLAB 13:08
PROVIDERS: Nurse Practitioner; PCP Internal Medicine; Visit Provider Internal Medicine Hematology & Oncology
DX: E78.5 Hyperlipidemia, unspecified (principal); E66.9 Obesity, unspecified
CPT/HCPCS: 36415; 80053; 80061

== ENCOUNTER 2023-08-27 09:03 | Outpatient (CLI) | payer MEDICARE, SELFPAY ==
--- NOTE | ~2023-08-27 | MM_ITS ---
EXAMINATION: MM screening [facility] BI w calvin HISTORY: Screening mammogram TECHNIQUE: Craniocaudal and mediolateral oblique 3-D tomosynthesis images were obtained and synthetic 2-D images were generated. CAD analysis was submitted and interpreted. COMPARISON: 08/15/2022, 08/16/2020, 04/27/2019 BREAST PARENCHYMAL COMPOSITION: There are scattered areas of fibroglandular density. FINDINGS: No suspicious mass, calcification, or architectural distortion are identified in either sena ast to suggest malignancy. There has been no suspicious interval change. IMPRESSION: 1. No mammographic evidence of malignancy. 2. Recommend routine screening mammography while the patient remains in good health. BI-RADS Category 1: Negative Reviewed, dictated and finalized at location A. [facility] IMPRESSION: 1. No mammographic evidence of malignancy. 2. Recommend routine screening mammography while the patient remains in good he alth. BI-RADS Category 1: Negative
--- NOTE | ~2023-08-27 | DEXA_ITS ---
Bone Density Report Name: JACQUELYN YOUNGBLOOD Age: 82 Sex: Female Ethnicity: White Date of : 1940 Indication: postmenopausal; screening for osteoporosis; height loss; prior fracture; cancer; Referring Provider: KRISTAN OZUNA Study: Bone densitometry was performed. Exam Date: August 27, 2023 Accession number: [id number] Bone Density: Region BMD T-score Z-score Classification AP Spine(L1-L4) 1.195 1.3 4.1 Normal Femoral Neck (Left) 0.672 -1.6 0.8 Osteopenia Total Hip (Left) 0.904 -0.3 1.8 Normal Femoral Neck (Right) 0.726 -1.1 1.2 Osteopenia Total Hip (Right) 0.904 -0.3 1.8 Normal Total Hip Mean 0.904 -0.3 1.8 Normal World Health Organization criteria for BMD impression classify patients as: Normal (T-score at or above -1.0), Osteopenia (T-score between -1.0 and -2.5), or Osteoporosis (T-score at or below -2.5). 10-year Fracture Risk: FRAX not reported because: Prior hip or vertebral fracture Clinical Information Provided by Patient: Have had a previous hip or vertebral fracture Has had a low trauma fracture Has used the following medications: Vitamin D, Calcium Has the following medical conditions: Cancer Patient maximum height was 67.75 Menopause Age: 55 No regular weight bearing exercise Onset of menses at age 14 Number of children 2 Impression: The patient has low bone mass, based on the Left Femoral Neck T-score. The patient has risk factors, including: previous fracture. Discussion: INCREASED RISK OF FRACTURE DUE TO HISTORY OF FRACTURE. The patient's previous fracture puts the patient at high risk of a future fracture. In untreated patients, the risk of osteoporotic fracture increases approximately two-fold for each 1.0 SD decrease in T-score. Low bone density is not the only risk factor for fracture; also consider factors such as patient's age, frailty or poor health, risk of falling, risk of injury, previous osteoporotic fracture, family history of osteoporosis, cigarette smoking, low body weight, etc. Not everyone with a low trauma fracture has osteoporosis; osteomalacia and other metabolic bone disorders should also be considered. Patients who have osteoporosis should be evaluated for specific diseases and conditions (secondary causes) that may cause or contribute to bone loss and fracture risk. National Osteoporosis Foundation (NOF) recommends pharmacologic intervention for patients with a prior hip or vertebral fracture regardless of BMD T-score. The patient should follow a healthful lifestyle (good nutrition with adequate calcium and vitamin D, and appropriate weight-bearing exercise). Follow-Up: Consider a repeat BMD and Vertebral Fracture Assessment (VFA) exam in 2 years or sooner if medically necessary, to reassess this patient's status. Reported by: [facility] on 08/13
== END 2023-08-27 09:04 | disposition home or self-care (01) ==
LOC: ANHIMG 09:05
PROVIDERS: PCP Family Medicine; Visit Provider Family Medicine
DX: Z12.31 Encounter for screening mammogram for malignant neoplasm of breast (principal); Z78.0 Asymptomatic menopausal state; M85.89 Other specified disorders of bone density and structure, multiple sites
CPT/HCPCS: 77063; 77067; 77080

== ENCOUNTER 2023-08-28 09:47 | Outpatient (CLI) | payer MEDICARE, SELFPAY ==
--- NOTE | ~2023-08-28 | CT_ITS ---
CT of the Abdomen and Pelvis: Indication: B-cell lymphoma Technique: 2.5 mm axial scans were obtained through the abdomen and pelvis following intravenous adm inistration of 100 cc of Omnipaque 350. Dose reduction technique was used on this scan by utilizing a utomated exposure control and iterative reconstruction technique. The dose-length product (DLP) was 1 019.02 mGy-cm. COMPARISON: 08/20/2022 Findings: Scans through the lung bases are unremarkable. The liver, spleen, pancreas, gallbladder, adrenals and kidneys are within normal limits. No evidence of aortic aneurysm. No lymphadenopathy. No bowel obstruction or bowel wall thickening. There is no evidence to suggest acute appendicitis. Images through the pelvis were performed. Possible mild urinary bladder wall thickening. No pelvic ma ss seen. No ascites. Impression: No abnormal lymphadenopathy seen. No evidence for active malignancy or metastatic disease. Possible mild urinary bladder wall thickening versus underdistention. Correlate for cystitis/UTI. Reviewed, dictated and finalized at location . ATIONS PLANT ATTENDANT Impression: No abnormal lymphadenopathy seen. No evidence for active malignancy or metastat ic disease. Possible mild urinary bladder wall thickening versus underdistention. Correlate for cystitis/UTI.
[2023-08-28 10:11] LABS: Estimated Glomerular Filt Rate > 60
== END 2023-08-28 09:48 | disposition home or self-care (01) ==
PROVIDERS: PCP Family Medicine; Visit Provider Internal Medicine Hematology & Oncology
DX: C83.35 Diffuse large B-cell lymphoma, 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 (principal)
CPT/HCPCS: 74177; Q9967

== ENCOUNTER 2023-09-03 10:17 | Outpatient (CLI) | payer MEDICARE, SELFPAY ==
[2023-09-03 10:31] LABS: Basophils Absolute Auto 0.1 K/mm3 (0.0-0.1); Basophils Percent Auto 0.9 % (0.2-1.2); Eosinophils Absolute Auto 0.4 K/mm3 (0-0.3); Eosinophils Percent Auto 7.9 % (0-4.4); Hematocrit 40.1 % (37.0-47.0); Hemoglobin 13.2 g/dL (12.0-15.0); Immature Granulocyte Absolute 0.01 K/mm3 (0.00-0.031); Immature Granulocyte Percent A 0.2 % (0-0.5); Lymphocytes Percent Auto 35.8 % (18.3-44.2); Mean Corpuscular HGB Conc 32.9 g/dl (32-36); Mean Corpuscular Hemoglobin 29.4 pg (26-34); Mean Corpuscular Volume 89.3 fl (80-100); Mean Platelet Volume 8.4 fl (7.4-10.4); Monocytes Absolute Auto 0.6 K/mm3 (0.1-0.6); Monocytes Percent Auto 10.9 % (2.6-8.5); Neutrophils Absolute Auto 2.4 K/mm3 (1.3-6.7); Neutrophils Percent Auto 44.3 % (45.5-73.1); Platelet Count Result 242 k/mm3 (150-375); Red Blood Count 4.49 M/mm3 (4.2-5.4); Red Cell Distribution Width 12.9 % (11.5-14.5); White Blood Count 5.3 K/mm3 (4.5-10.0)
[2023-09-03 10:36] LABS: Blood Urea Nitrogen 13 mg/dL (8-26); Carbon Dioxide 28 mmol/L (22-30); Chloride 103 mmol/L (98-109); Estimated Glomerular Filt Rate > 60; Glucose 78 mg/dL (70-105); Ionized Calcium (POC) 1.27 mmol/L (1.11-1.31); Sodium 144 mmol/L (138-146)
[2023-09-03 11:42] LABS: Alanine Aminotransferase 29 U/L (6-35); Albumin Level 4.5 g/dL (3.5-5.1); Alkaline Phosphatase 61 U/L (38-126); Anion Gap 12 mmol/L (8-16); Aspartate Amino Transferase 32 U/L (14-36); Bilirubin,Total 0.5 mg/dL (0.2-1.3); Blood Urea Nitrogen 14 mg/dL (7-17); Calcium 9.9 mg/dL (8.4-10.2); Carbon Dioxide 27 mmol/L (22-30); Chloride 104 mmol/L (98-107); Estimated Glomerular Filt Rate > 60; Glucose 76 mg/dL (65-110); Lactate Dehydrogenase 190 U/L (120-246); Sodium 143 mmol/L (137-145)
== END 2023-09-03 10:18 | disposition home or self-care (01) ==
LOC: ANHLAB 10:19
PROVIDERS: PCP Family Medicine; Visit Provider Internal Medicine Hematology & Oncology
DX: C83.35 Diffuse large B-cell lymphoma, 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 (principal)
CPT/HCPCS: 36415; 80047; 80053; 81001; 83615; 85025; 87077; 87086; 87186

== ENCOUNTER 2023-09-03 15:09 | Outpatient (CLI) | payer MEDICARE, SELFPAY ==
[2023-09-03 16:28] LABS: Appearance Urine Clear (Clear); Bacteria Urine 4+ /hpf; Bilirubin Urine Negative (Negative); Blood Urine Negative (Negative); Color Urine Dark Yellow (Yellow); Glucose Urine UA Negative (Negative); Ketones Urine Negative (Negative); Leukocyte Esterase Ur Trace LEU/UL (Negative); Nitrate Urine Negative (Negative); Non Pathogenic Casts 0-2; Protein Urine Negative (Negative); RBC Urine 0-2 /hpf (0-2); Specific Grav Ur 1.008 (1.001-1.035); Squamous Epithelial Cell Urine Occasional /hpf (Few); Urobilinogen Urine 0.2 mg/dL (<2.0); WBC Urine 21-50 /hpf
[2023-09-03 16:35] LABS: Add Urine Microscopic? YES
== END 2023-09-03 15:10 | disposition home or self-care (01) ==
LOC: ANHLAB 15:11
PROVIDERS: Nurse Practitioner; PCP Family Medicine; Visit Provider Internal Medicine Hematology & Oncology
DX: R39.9 Unspecified symptoms and signs involving the genitourinary system (principal)
CPT/HCPCS: 81001; 87077; 87086; 87186

== ENCOUNTER 2023-11-04 13:18 | Outpatient (CLI) | payer MEDICARE, SELFPAY ==
--- NOTE | ~2023-11-04 | XR_ITS ---
EXAMINATION: XR hip BI 2V w AP pelvis DATE: 11/04/2023 13:44 INDICATION: Right hip pain. TECHNIQUE: An anteroposterior view of the pelvis and 2 views of each hip were obtained. COMPARISON: Left hip radiographs 05/05/2018 FINDINGS: There is lumbar dextrocurvature and severe spondylosis. No fracture. There is moderate oste oarthritis of the hips. IMPRESSION: 1. Moderate osteoarthritis of the hips. Reviewed, dictated and finalized at location E. [facility]
== END 2023-11-04 13:19 | disposition home or self-care (01) ==
PROVIDERS: PCP Family Medicine; Visit Provider Orthopaedic Surgery
DX: M25.551 Pain in right hip (principal)
CPT/HCPCS: 73521

== ENCOUNTER 2023-11-12 10:32 | Outpatient (CLI) | payer MEDICARE, SELFPAY ==
[2023-11-12 13:05] LABS: Alanine Aminotransferase 25 U/L (6-35); Albumin Level 4.4 g/dL (3.5-5.1); Alkaline Phosphatase 67 U/L (38-126); Aspartate Amino Transferase 30 U/L (14-36); Bilirubin,Total 0.5 mg/dL (0.2-1.3)
[2023-11-12 13:29] LABS: Hepatitis B Surface Antigen Negative (Negative)
[2023-11-12 13:34] LABS: HAV RESULT Negative (Negative); Hepatitis B Core IgM Result Negative (Negative)
[2023-11-12 13:46] LABS: Hepatitis C Virus Antibody Negative (Negative)
== END 2023-11-12 10:33 | disposition home or self-care (01) ==
PROVIDERS: PCP Family Medicine; Visit Provider Internal Medicine Hematology & Oncology
DX: R74.01 Elevation of levels of liver transaminase levels (principal); C83.30 Diffuse large B-cell lymphoma, unspecified site; E55.9 Vitamin D deficiency, unspecified; E78.5 Hyperlipidemia, unspecified; G47.33 Obstructive sleep apnea (adult) (pediatric); I10 Essential (primary) hypertension; K21.9 Gastro-esophageal reflux disease without esophagitis; M19.90 Unspecified osteoarthritis, unspecified site; M85.80 Other specified disorders of bone density and structure, unspecified site
CPT/HCPCS: 36415; 80074; 80076

== ENCOUNTER 2024-02-10 11:13 | Outpatient (CLI) | payer MEDICARE, SELFPAY ==
[2024-02-10 12:27] LABS: IFOB Positive Control Positive; Immunochemical Fecal Occult Bl Negative (N)
== END 2024-02-10 11:14 | disposition home or self-care (01) ==
LOC: ANHLAB 11:15
PROVIDERS: PCP Family Medicine; Visit Provider Nurse Practitioner Family
DX: K92.1 Melena (principal); M25.551 Pain in right hip
CPT/HCPCS: 82274

== ENCOUNTER 2024-02-19 15:46 | Emergency (ER) | payer MEDICARE, SELFPAY ==
[2024-02-19 16:00] VITALS: BP 131/84; PULSE 114; RESP 16; TEMP 37.7; O2SAT 97
--- NOTE | 2024-02-19 16:04 | ED.GENADULT ---
HPI - General Adult General Chief complaint: Urogenital-Female Stated complaint: Fever/Sore Throat/Uti Symptoms Time Seen by Provider: 02/19/24 16:04 Source: patient, RN notes reviewed and old records reviewed Mode of arrival: ambulatory Limitations: no limitations History of Present Illness HPI narrative: 83-year-old female to [facility] with complaint dysuria and frequency that started 5 days ago, sore throat that started 3 days ago and fever that started 2 days ago. patient also endorses lower abdominal pressure started yesterday. Patient has attempted to treat at home with Tylenol mild relief. Patient denies hematuria, nausea, vomiting, bowel changes, headache, myalgias. Patient able to tolerate fluids by mouth. Patient in no acute distress and able to speak in full sentences. Related Data Home Medications Medication Instructions Recorded Confirmed calcium carbonate 600 mg PO DAILY 09/29/19 02/05/24 cranberry concentrate-ascorbic 1 cap PO DAILY 09/29/19 02/05/24 acid 4,200 mg-20 mg capsule multivitamin 1 tablet PO DAILY 09/29/19 02/05/24 omega-3 fatty acids 1,000 mg 1,000 mg PO DAILY 09/29/19 02/05/24 capsule (Fish Oil Concentrate) vitamin B complex 1 tablet PO DAILY 09/29/19 02/05/24 diphenhydramine 25 1 tablet PO QHS PRN 01/22/23 02/05/24 mg-acetaminophen 500 mg tablet (Tylenol PM Extra Strength) biotin 5 mg capsule 5 mg PO DAILY 03/25/23 02/05/24 Allergies Allergy/AdvReac Type Severity Reaction Status Date / Time adhesive tape Allergy Mild RASH Verified 02/05/24 13:48 aspirin Allergy Mild HIVES Verified 02/05/24 13:48 naproxen Allergy Mild HIVES Verified 02/05/24 13:48 avocado Allergy Unknown feel like Verified 02/05/24 13:48 having flu egg Allergy Unknown Hives Verified 02/05/24 13:48 ibuprofen Allergy Unknown Hives Verified 02/05/24 13:48 Review of Systems Review of Systems: All systems reviewed & are unremarkable except as noted in HPI and below Constitutional: Constitutional: Reports as per HPI, Reports fever(s) and Reports lethargy Eyes: Eyes: Reports no additional eye complaints ENT: Reports as per HPI and Reports sore throat Cardiovascular: Cardiovascular: Reports no additional cardiovascular complaints, Denies chest pain and Denies dyspnea Respiratory: Respiratory: Reports no additional respiratory complaints, Denies cough and Denies dyspnea Genitourinary: Genitourinary: Reports as per HPI, Reports nocturia, Reports dysuria and Reports flank pain Musculoskeletal: Musculoskeletal: Reports no additional musculoskeletal complaints Neurologic: Reports system reviewed and no additional complaints, except as documented Psychiatric: Psychiatric: Reports no additional psychiatric complaints [facility] Past Medical History Medical History Arthritis Degenerative arthritis of knee, bilateral Dry eye Essential hypertension GERD (gastroesophageal reflux disease) History of esophageal dilatation Hyperlipidemia Mild episode of recurrent major depressive disorder Non-Hodgkin lymphoma 2019 Obesity (BMI 30-39.9) KELLY (obstructive sleep apnea) Osteopenia Primary osteoarthritis, left shoulder Surgical History Surgical History History of arthroscopy of left knee History of left shoulder replacement [facility] History of neck surgery tumor removed from back of neck History of sinus surgery History of surgical removal of ganglion cyst History of tonsillectomy Family History Family History Father Family history of osteoporosis Family history of hearing loss CHF (congestive heart failure) Mother Family history of osteoporosis Hypertension Asthma Cerebrovascular accident Family history of hearing loss Social History Social History Jesika
== END 2024-02-19 16:34 | disposition home or self-care (01) ==
PROVIDERS: Emergency Provider Nurse Practitioner Family; PCP Family Medicine
DX: N39.0 Urinary tract infection, site not specified (principal); B96.20 Unspecified Escherichia coli [E. coli] as the cause of diseases classified elsewhere; J02.9 Acute pharyngitis, unspecified; M17.0 Bilateral primary osteoarthritis of knee; I10 Essential (primary) hypertension; K21.9 Gastro-esophageal reflux disease without esophagitis; E78.5 Hyperlipidemia, unspecified; E66.9 Obesity, unspecified; Z68.32 Body mass index [BMI] 32.0-32.9, adult; M85.80 Other specified disorders of bone density and structure, unspecified site; M19.012 Primary osteoarthritis, left shoulder; Z85.72 Personal history of non-Hodgkin lymphomas
CPT/HCPCS: 81003; 87077; 87081; 87086; 87088; 87186; 87880; 99213; G0463

== ENCOUNTER 2024-03-01 11:14 | Outpatient (CLI) | payer MEDICARE, SELFPAY ==
[2024-03-01 11:28] LABS: Basophils Percent Auto 0.1 % (0.2-1.2); Eosinophils Percent Auto 0.1 % (0-4.4); Hematocrit 39.4 % (37.0-47.0); Lymphocytes Absolute Auto 1.73 K/mm3 (0.9-3.2); Lymphocytes Percent Auto 17.6 % (18.3-44.2); Mean Platelet Volume 8.3 fl (7.4-10.4); Monocytes Absolute Auto 0.4 K/mm3 (0.1-0.6); Monocytes Percent Auto 3.8 % (2.6-8.5); Neutrophils Absolute Auto 7.6 K/mm3 (1.3-6.7); Neutrophils Percent Auto 77.4 % (45.5-73.1); Platelet Count Result 446 k/mm3 (150-375); Red Blood Count 4.33 M/mm3 (4.2-5.4); Red Cell Distribution Width 13.4 % (11.5-14.5); White Blood Count 9.8 K/mm3 (4.5-10.0)
[2024-03-01 16:40] LABS: Alanine Aminotransferase 27 U/L (6-35); Albumin Level 4.4 g/dL (3.5-5.1); Alkaline Phosphatase 71 U/L (38-126); Anion Gap 6 mmol/L (4-12); Aspartate Amino Transferase 24 U/L (14-36); Bilirubin,Total 0.5 mg/dL (0.2-1.3); Blood Urea Nitrogen 21 mg/dL (7-17); Calcium 9.8 mg/dL (8.4-10.2); Carbon Dioxide 29 mmol/L (22-30); Chloride 103 mmol/L (98-107); Estimated Glomerular Filt Rate > 60; Glucose 100 mg/dL (65-110); Lactate Dehydrogenase 167 U/L (120-246); Potassium 4.1 mmol/L (3.4-5.0); Sodium 138 mmol/L (137-145)
== END 2024-03-01 11:15 | disposition home or self-care (01) ==
LOC: ANHLAB 11:16
PROVIDERS: PCP Family Medicine; Visit Provider Internal Medicine Hematology & Oncology
DX: C83.35 Diffuse large B-cell lymphoma, 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 (principal)
CPT/HCPCS: 36415; 80053; 83615; 85025

== ENCOUNTER 2024-03-25 11:23 | Outpatient (CLI) | payer MEDICARE, SELFPAY ==
[2024-03-25 12:04] LABS: Appearance Urine Clear (Clear); Bacteria Urine None Seen /hpf; Bilirubin Urine Negative (Negative); Blood Urine Negative (Negative); Color Urine Dark Yellow (Yellow); Glucose Urine UA Negative (Negative); Ketones Urine Negative (Negative); Leukocyte Esterase Ur 1+ LEU/UL (Negative); Need Manual Microscopic Reviewed; Nitrate Urine Negative (Negative); Non Pathogenic Casts 0-2; Protein Urine Negative (Negative); RBC Urine 0-2 /hpf (0-2); Specific Grav Ur 1.006 (1.001-1.035); Squamous Epithelial Cell Urine None Seen /hpf (Few); Urobilinogen Urine 0.2 mg/dL (<2.0); WBC Urine 0-5 /hpf (0-3); pH Urine 7.5 (5.0-9.0)
[2024-03-25 12:13] LABS: Add Urine Microscopic? YES
== END 2024-03-25 11:24 | disposition home or self-care (01) ==
LOC: ANHLAB 11:26
PROVIDERS: PCP Family Medicine; Visit Provider Nurse Practitioner Family
DX: R30.0 Dysuria (principal)
CPT/HCPCS: 81001; 87086; 87088

== ENCOUNTER 2024-04-30 12:13 | Outpatient (CLI) | payer MEDICARE, SELFPAY ==
--- NOTE | ~2024-04-30 | XR_ITS ---
XR knee LT min 4V 04/30/2024 12:38 Indication: Osteoarthritis of the knees Procedure: 4 views left knee Comparison: 07/03/2011 Findings: There has been progression of moderate tricompartment osteoarthritis of the left knee. Ther e is chondrocalcinosis. No acute fracture or traumatic malalignment. Small knee effusion. Impression: 1: Interval progression of moderate tricompartment osteoarthritis of the left knee. Reviewed, dictated and finalized at location B. Impression: 1: Interval progression of moderate tricompartment osteoarthritis of the left k nee.
--- NOTE | ~2024-04-30 | XR_ITS ---
XR knee RT min 4V 04/30/2024 12:38 Indication: Right knee pain Procedure: 4 views right knee Comparison: 01/29/2012 Findings: There is moderate tricompartment osteoarthritis. There is chondrocalcinosis. No significant joint effusion. No acute fracture or traumatic malalignment. Impression: 1: Progression of moderate tricompartment osteoarthritis of the right knee. Reviewed, dictated and finalized at location B. Impression: 1: Progression of moderate tricompartment osteoarthritis of the right knee.
--- NOTE | ~2024-04-30 | XR_ITS ---
AP view of the pelvis and AP and lateral views of the bilateral hip Clinical history: Pain Findings: No acute fracture or dislocation is seen. Osseous alignment is anatomic. There is mild dege nerative change of the right hip joint. Left hip joint intact. Soft tissues are unremarkable. Impression: Mild right hip joint degenerative change. Reviewed, dictated and finalized at location . Impression: Mild right hip joint degenerative change.
== END 2024-04-30 12:14 | disposition home or self-care (01) ==
LOC: ANHIMG 12:17
PROVIDERS: PCP Family Medicine; Visit Provider Orthopaedic Surgery
DX: M17.0 Bilateral primary osteoarthritis of knee (principal); M16.0 Bilateral primary osteoarthritis of hip
CPT/HCPCS: 73521; 73564

== ENCOUNTER 2024-05-20 11:30 | Outpatient (CLI) | payer MEDICARE, SELFPAY ==
[2024-05-20 11:49] LABS: Hematocrit 39.3 % (37.0-47.0); Mean Corpuscular HGB Conc 33.1 g/dl (32-36); Mean Corpuscular Volume 90.6 fl (80-100); Mean Platelet Volume 8.9 fl (7.4-10.4); Platelet Count Result 274 k/mm3 (150-375); Red Blood Count 4.34 M/mm3 (4.2-5.4); Red Cell Distribution Width 13.2 % (11.5-14.5); White Blood Count 6.2 K/mm3 (4.5-10.0)
[2024-05-20 13:19] LABS: Alanine Aminotransferase 22 U/L (6-35); Albumin Level 4.5 g/dL (3.5-5.1); Alkaline Phosphatase 62 U/L (38-126); Anion Gap 11 mmol/L (4-12); Aspartate Amino Transferase 27 U/L (14-36); Bilirubin,Total 0.4 mg/dL (0.2-1.3); Blood Urea Nitrogen 19 mg/dL (7-17); Calcium 9.6 mg/dL (8.4-10.2); Carbon Dioxide 25 mmol/L (22-30); Chloride 103 mmol/L (98-107); Cholesterol 167 mg/dL (0-200); Estimated Glomerular Filt Rate > 60; Glucose 93 mg/dL (65-110); HDL Direct 65 mg/dL; Potassium 4.2 mmol/L (3.4-5.0); Sodium 139 mmol/L (137-145); Triglycerides 107 mg/dL (<150)
[2024-05-20 13:29] LABS: LDL Cholesterol Direct 65 mg/dL
== END 2024-05-20 11:31 | disposition home or self-care (01) ==
LOC: ANHLAB 11:32
PROVIDERS: PCP Family Medicine; Visit Provider Family Medicine
DX: C83.30 Diffuse large B-cell lymphoma, unspecified site (principal); E55.9 Vitamin D deficiency, unspecified; E66.9 Obesity, unspecified; G47.33 Obstructive sleep apnea (adult) (pediatric); I10 Essential (primary) hypertension; R74.01 Elevation of levels of liver transaminase levels
CPT/HCPCS: 36415; 80053; 80061; 82306; 85027

== ENCOUNTER 2024-05-21 15:46 | Outpatient (CLI) | payer MEDICARE, SELFPAY ==
--- NOTE | 2024-05-21 15:53 | ECG_ITS ---
Test Date: 2024-05-21 16:01:21 Measurements Intervals [place] Rate: 84 P: 75 TN: 200 QRS: -26 QRSD: 98 T: 54 QT: 360 QTc: 428 Interpretive Statements SINUS RHYTHM BORDERLINE LEFT AXIS DEVIATION [QRS AXIS < -20] LOW QRS VOLTAGE IN PRECORDIAL LEADS [QRS DEFLECTION < 1.0 mV IN CHEST LEADS] No previous ECG available for comparison Electronically Signed On 05-23-2024 13:20:26 CDT by Trevor Rasheed M.D.
== END 2024-05-21 15:47 | disposition home or self-care (01) ==
PROVIDERS: PCP Family Medicine; Visit Provider Orthopaedic Surgery
DX: I10 Essential (primary) hypertension (principal)
CPT/HCPCS: 93005

== ENCOUNTER 2024-05-25 12:25 | Outpatient (CLI) | payer MEDICARE, SELFPAY ==
[2024-05-25 13:28] LABS: Add Urine Microscopic? YES; Appearance Urine Clear (Clear); Bacteria Urine None Seen /hpf; Bilirubin Urine Negative (Negative); Blood Urine Negative (Negative); Color Urine Yellow (Yellow); Glucose Urine UA Negative (Negative); Ketones Urine Negative (Negative); Leukocyte Esterase Ur Trace LEU/UL (Negative); Nitrate Urine Negative (Negative); Non Pathogenic Casts 0-2; Protein Urine Negative (Negative); RBC Urine 0-2 /hpf (0-2); Specific Grav Ur 1.009 (1.001-1.035); Squamous Epithelial Cell Urine None Seen /hpf (Few); Urobilinogen Urine 0.2 mg/dL (<2.0); WBC Urine 0-5 /hpf (0-3)
== END 2024-05-25 12:26 | disposition home or self-care (01) ==
LOC: ANHLAB 12:31
PROVIDERS: PCP Family Medicine; Visit Provider Family Medicine
DX: R35.0 Frequency of micturition (principal); R39.9 Unspecified symptoms and signs involving the genitourinary system
CPT/HCPCS: 81001; 87086; 87088

== ENCOUNTER 2024-07-16 11:52 | Outpatient (CLI) | payer MEDICARE, SELFPAY ==
[2024-07-16 13:38] LABS: Basophils Percent Auto 0.7 % (0.2-1.2); Eosinophils Absolute Auto 0.2 K/mm3 (0-0.3); Eosinophils Percent Auto 3.2 % (0-4.4); Hematocrit 39.9 % (37.0-47.0); Hemoglobin 13.3 g/dL (12.0-15.0); Immature Granulocyte Absolute 0.01 K/mm3 (0.00-0.031); Immature Granulocyte Percent A 0.2 % (0-0.5); Lymphocytes Absolute Auto 2.14 K/mm3 (0.9-3.2); Mean Corpuscular HGB Conc 33.3 g/dl (32-36); Mean Corpuscular Hemoglobin 29.6 pg (26-34); Mean Corpuscular Volume 88.7 fl (80-100); Mean Platelet Volume 8.7 fl (7.4-10.4); Monocytes Absolute Auto 0.6 K/mm3 (0.1-0.6); Monocytes Percent Auto 9.6 % (2.6-8.5); Neutrophils Percent Auto 50.3 % (45.5-73.1); Platelet Count Result 266 k/mm3 (150-375); Red Cell Distribution Width 12.7 % (11.5-14.5)
[2024-07-16 13:51] LABS: Albumin Level 4.6 g/dL (3.5-5.1); Estimated Glomerular Filt Rate > 60; Glucose 88 mg/dL (65-110)
[2024-07-16 13:53] LABS: Prothrombin Time 13.8 Seconds (11.1-14.7)
[2024-07-16 13:54] LABS: Partial Thromboplastin Time 27.3 Seconds (22.3-36.8)
[2024-07-16 14:13] LABS: Hemoglobin A1C 5.9 % (<5.7)
[2024-07-16 14:13] LABS: Urine Cotinine NEGATIVE
[2024-07-16 14:49] LABS: MRSA (PCR) NOT DETECTED (NOT DETECTE)
== END 2024-07-16 11:53 | disposition home or self-care (01) ==
LOC: ANHSURGERY 11:58
PROVIDERS: Anesthesiology; PCP Family Medicine; Visit Provider Orthopaedic Surgery
DX: M16.11 Unilateral primary osteoarthritis, right hip (principal); C83.30 Diffuse large B-cell lymphoma, unspecified site; Z01.818 Encounter for other preprocedural examination
CPT/HCPCS: 36415; 80307; 82040; 82565; 82947; 83036; 85025; 85610; 85730; 87641

== ENCOUNTER 2024-08-05 01:07 | Day surgery (SDC) | payer MEDICARE, SELFPAY ==
[2024-07-16 12:17] VITALS: BP 135/65; PULSE 78; RESP 16; TEMP 36.9; O2SAT 96; BMI 36.3
--- NOTE | 2024-07-16 12:43 | PC.NURSE ---
Report to the Outpatient Waiting Room, entrance under the green pavilion located off [address], at time __08:30am__on date 08/05/24 . Planned Procedure Time: ___10:30am .? Time changes happen often and if your time is changed the preop area will call you the afternoon before. - You and your visitor will be asked to self-screen and do not enter if you have any COVID symptoms. Please call surgeon if you need to reschedule. - A mask is optional within the hospital at this time. Patients may have clear liquids (water, carbonated beverages, clear teas, apple juice) until 3 hours prior to surgery with a maximum of 20 ounces. - No food from midnight until time of surgery and no smoking(0730am) Take only the following medications with a SIP of water on the morning of surgery: __Tylenol as needed DO NOT STOP ANY OF YOUR OTHER PRESCRIPTION MEDICATIONS PRIOR TO SURGERY EXCEPT THE FOLLOWING Medications to discontinue per physician Hold all vitamins, supplements, probiotics and herbs 3 days prior per Anesthesia Date to take last dose____08/01/24 Please no make-up, nail divehi, hairspray, perfume, deodorant, or body powder the day of surgery.? No jewelry (including any body piercings) or valuables the day of surgery, leave them at home.? Please take a shower or bath the night before, or the morning of, surgery with an antibacterial soap.? Wear comfortable, loose fitting clothing.? - Jewelry must be removed prior to entering the operating room.? Rings and piercings that are not removed may be cut off. - The hospital will not accept responsibility for valuables.? - Please leave all valuables, including medications, at home the day of surgery. If you are going home after surgery, a licensed van driver helper must drive you home.? - NO public transportation without another adult if you receive anesthesia. - We recommend that an adult stay with you for 24 hours following discharge. - We also recommend that you do not drive, make important decision, drink alcoholic beverages, or take any drugs that were not prescribed by your health care provider for at least 24 hours after your discharge time. Follow any additional instructions given to you from your surgeon. Telephone instructions given to __patient & friend and asked if any additional questions and then verbalized understanding. Patient advised to call surgeon office or pre surgery nurse liaison [phone] if any additional questions.
[2024-08-05] VITALS (15 sets, daily range): BP systolic 111–144; BP diastolic 55–82; PULSE 79–99; RESP 12–20; TEMP 36.3–36.7; O2SAT 97–100
--- NOTE | ~2024-08-05 | XR_ITS ---
EXAMINATION: XR hip RT min 2V DATE: 08/05/2024 13:36 INDICATION: Right hip arthroplasty TECHNIQUE: 2 views right hip FINDINGS: There is a right bipolar hip arthroplasty in expected position. Subcutaneous gas with soft tissue swelling are consistent with recent surgery. IMPRESSION: 1. Recent right bipolar hip arthroplasty. Reviewed, dictated and finalized at location B.
[2024-08-05] MEDS: LACTATED RINGERS 1,000 ML 30 ML IV CONT ×2 (09:40→13:07)
[2024-08-05] MEDS: TRANEXAMIC ACID 1,000MG/ISO100 1,000 MG/100 ML BAG 200 MG IVPB (09:40)
--- NOTE | 2024-08-05 09:51 | WPDHPUPDATE1 ---
History and Physical Update Update Date/Time: 08/05/24 09:51 History and Physical has been reviewed, including an updated exam of the patient. There are NO changes in the patient's condition. Risks, benefits, and alternatives have been discussed and questions answered. Patient agrees to proceed with procedure.
--- NOTE | 2024-08-05 10:43 | WPDANESEPPF ---
Anes - Initial Pre Proc Eval Procedure: Operation Date: 08/05/24 10:30 Proposed Procedures p Right Total Hip Arthroplasty - Isaac Drummond MD Date/Time: 08/05/24 10:43 Surgeon: Isaac Drummond MD Pre Op Diagnosis: primary oa right hip Patient Data Age: 83 Gender: F Height: 1.65 m Weight: 91.1 kg Last Vital Signs Temp 97.4 F L 08/05/24 09:22 Pulse 81 08/05/24 09:22 Resp 16 08/05/24 09:22 BP 139/68 08/05/24 09:22 Pulse Ox 100 08/05/24 09:22 O2 Del Method Room Air 08/05/24 09:22 Allergies Allergy/AdvReac Type Severity Reaction Status Date / Time adhesive tape Allergy Mild RASH Verified 08/05/24 08:43 aspirin Allergy Mild HIVES Verified 08/05/24 08:43 naproxen Allergy Mild HIVES Verified 08/05/24 08:43 avocado Allergy Unknown feel like Verified 08/05/24 08:43 having flu egg Allergy Unknown Hives Verified 08/05/24 08:43 ibuprofen Allergy Unknown Hives Verified 08/05/24 08:43 Home Medications Medication Instructions Recorded Confirmed Type calcium carbonate 600 mg PO DAILY 09/29/19 08/05/24 History cranberry concentrate-ascorbic 1 cap PO DAILY 09/29/19 08/05/24 History acid 4,200 mg-20 mg capsule multivitamin 1 tablet PO DAILY 09/29/19 08/05/24 History omega-3 fatty acids 1,000 mg 1,000 mg PO DAILY 09/29/19 08/05/24 History capsule (Fish Oil Concentrate) vitamin B complex 1 tablet PO DAILY 09/29/19 08/05/24 History diphenhydramine 25 1 tablet PO QHS PRN Pain 01/22/23 08/05/24 History mg-acetaminophen 500 mg tablet (Tylenol PM Extra Strength) biotin 5 mg capsule 5 mg PO DAILY 03/25/23 08/05/24 History famotidine 20 mg tablet 20 mg PO QHS #30 tabs 05/04/24 08/05/24 Rx glucosamine 1 tablet PO DAILY 05/25/24 08/05/24 History acetaminophen 650 mg 1,300 mg PO DAILY PRN Pain 07/16/24 08/05/24 History tablet,extended release (Tylenol 8 Hour) polyethylene glycol 3350 17 gram See Rx Instructions .Route 07/16/24 08/05/24 History oral powder packet (Miralax) .COMPLEX PRN Constipation vit C,D-Je-zkoldn-lutein-zeaxan 60 1 cap PO DAILY 07/16/24 08/05/24 History mg-13.5 mg-15 mg-2 mg-6 mg capsule (Healthy Eyes Lutein-Zeaxanthin) atorvastatin 40 mg tablet See Rx Instructions .Route 07/26/24 08/05/24 Rx .COMPLEX #90 tabs lisinopril 20 mg tablet See Rx Instructions .Route 08/03/24 08/05/24 Rx .COMPLEX #90 tabs montelukast 10 mg tablet 10 mg PO DAILY #90 tabs 08/03/24 08/05/24 Rx omeprazole 40 mg capsule,delayed 40 mg PO DAILY #90 caps 08/03/24 08/05/24 Rx release aspirin 81 mg tablet,delayed 81 mg PO BID 14 days #28 tabs 08/05/24 Rx release oxycodone-acetaminophen 5 mg-325 1 - 2 tablet PO Q4-6H PRN pain 7 08/05/24 Rx mg tablet days #30 tabs Laboratory Tests 08/05/24 08:51 Blood Type A Negative Antibody Screen Negative Patient hx anesthesia problems: none and other (Pt reports in the 1960s she stopped breathing after surgery/recovery. ) Family hx anesthesia problems: none Results Review: All pre-operative results and documents have been reviewed as part of the pre-operative evaluation. 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 History of sinus surgery History of surgical removal of ganglion cyst History of tonsillectomy Family History Family History Father Family history of osteoporosis Family history of hearing loss CHF (congestive heart failure) Mother Family history of osteoporosis Hypertension Asthma Cerebrovascular accident Family history of hearing loss Social History Social History Smoking status: Never smoker Second hand tobacco smoke exposure: No Alcohol intake: current Drinks per week: 2 Alcohol use details: WINE Substance use: never Substance use type: does not use Do You Feel Safe in your Home?: Yes Lack of Transportation: No Lack of Food: Never True Current Housing: Decline to Answer Concerned About Future Housing: Decline to Answer Difficulty Paying Gas/Electric Bills: Decline to Answer Difficulty Paying for Meds: Decline to Answer Currently Unemployed: Decline to Answer Education: Trade/Vocational Certificate Difficulty w/ Childcare or Family Care: No Living arrangements: with friend(s) Additional living arrangements comments: friend Occupation/Education: retired Gender identity (if verbalized by the patient): Female Spiritual care concerns: No Anes - Eval Final PreProcedure Day of Procedure 08/05/24 10:43 Patient weight: obese Heart: regular rate and rhythm Lungs: clear to auscultation Airway: Mallampati scale class II and special considerations (Overbite noted. ) large neck Neurological: alert and oriented Last oral intake: >/= 8 hours ASA classification: III Emergent: no Anesthetic plan: proceed Anesthesia type and monitoring: general ETT and standard monitoring Results Review: All pre-operative results and documents have been reviewed as part of the pre-operative evaluation. HTN, hyperlipidemia, KELLY on CPAP. EKG w NSR. Informed Consent: The patient's anesthetic plan and its attendant risks and benefits were discussed with the patient/family/POA. Questions were solicited and answers provided to the satisfaction of the patient/family/POA.
[2024-08-05] MEDS: ceFAZolin 2 GM/D5W 50 ML 2 GM/50 ML BAG IVPB ×2 (11:10→18:12)
[2024-08-05] MEDS: SODIUM CHLORIDE 0.9% IV 38.7 ML, MORPHINE SULFATE INJ (*CRX) 2 MG, ROPivacaine HCL 1% 2... INFILTRATE (12:30)
[2024-08-05] MEDS: fentaNYL CITRATE INJ (*CRX) 100 MCG/2 ML VIAL 25 MCG IV PUSH ×7 (13:17→14:15)
[2024-08-05] MEDS: ONDANSETRON INJ 4 MG/2 ML VIAL IV PUSH (14:02)
[2024-08-05] MEDS: diphenhydrAMINE HCl INJ 50 MG/ML VIAL 12.5 MG IV PUSH (14:53)
--- NOTE | 2024-08-05 15:15 | ADMGEN ---
This patient, Kate Ryder, was admitted to -. Patient/family oriented to hospital policies and general routines including ID bracelet, bed and alarms, visiting hours, pain management, procedures, bathroom and other care routines, personal items, smoking policy, room service/diet, and visiting hours. Information on how to activate the Rapid Response Team has been discussed. Patient/Family are encouraged to report perceived risks to care and to ask questions if they do not understand what they are told or what they should do.
[2024-08-05] MEDS: SODIUM CHLORIDE 0.9% IV 1,000 ML 125 ML IV CONT (15:37)
--- NOTE | 2024-08-05 16:22 | W.PM.PROC2 ---
Procedure Note - Detailed Date of Procedure 08/05/24 Pre-op Diagnosis Right hip degenerative arthritis. Post-op Diagnosis Same Procedure Performed Right Total Hip Arthroplasty Surgeon Isaac Drummond MD Rn Mds Coordinator Malaika Easley PA-C Anesthesia General Findings Excellent bone quality. Long femoral neck, and significant [place] femoral anteversion Description of Procedure The patient was given preoperative antibiotics. A general anesthetic was administered. The patient was carefully placed in the lateral decubitus position on the PEG board. The shoulders and hips were carefully positioned for component and leg length positioning reference. The hip was prepped and draped in the usual sterile fashion. A longitudinal incision was created over the posterior aspect of the greater trochanter. Careful dissection was brought down through the deep fascia with electrocautery. A minimally invasive optimized posterior approach to the hip was performed. The short external rotators and capsule were taken down in an L-shaped capsulotomy. The tissue was tagged for later repair using number 2 high strength suture. The femoral neck was measured and taken in situ. The femoral head was removed. The acetabulum was carefully exposed. The inferior capsule was released. The labrum was resected. The acetabulum was sequentially reamed to one over the intended cup size. The cup was impacted into position with excellent press-fit. Typical anatomic landmarks, including the bony contact points as well as the inferior transverse acetabular ligament were used to confirm cup positioning with preoperative templating. Attention was turned to the femur, which was carefully exposed. The hip was reamed and then broached sequentially. Excellent press-fit was obtained with the broach. The hip was trialed. Measurements were utilized, including the lesser trochanter as well as the center of the femoral head and the tip of the trochanter, and excellent assessment of the offset and leg lengths were confirmed. The real component was impacted into position. Trialing confirmed appropriate leg length and offset with soft tissue balancing as well apparent feel of the leg, both at the knee and the heel. Soft tissues were assessed using the the iliotibial band. Reduction of the posterior capsule and external rotators were also used as a secondary assessment. The hip was copiously irrigated with pulsatile lavage periodically throughout the procedure. The real components were then assembled and reduced. The hip was stable throughout typical maneuvers, including extension, external rotation to 70 degrees, the position of sleep as well as flexion to 90 degrees with internal rotation past 35 degrees. The shake test confirmed stability without impingement. Osteophytes were removed as necessary. The short external rotators and capsule were repaired back to the posterior trochanter through drill holes. The deep fascia was repaired with running number 2 barbed suture, followed by 2-0 Stratafix suture and 3-0 Stratafix suture in the dermis. Steri-Strips were placed on the skin, followed by a sterile occlusive dressing. There were no complications. Meticulous hemostasis was maintained with the AquaMantys device. The patient was brought to the recovery room in stable condition. There were no complications. Implants The Accolade II hip stem, 127 degree size 4 , was utilized with excellent press-fit. The 50 mm Trident II acetabular component was impacted with excellent press-fit stability. Standard polyethylene liner the +0, 36 mm Biolox ceramic femoral head was utilized. Estimated Blood Loss 200 Drains No Packing No Pathology None sent Complications No immediate complications Condition Stable Disposition PACU [facility] Billing Surgery - Charge Forward: Surgery Billing
--- NOTE | 2024-08-05 16:41 | P.CONIM_ITS ---
Assessment and Plan Assessment and plan (1) Status post total hip replacement, right: Code(s): Z96.641 - Presence of right artificial hip joint Status: Acute Assessment and Plan: * status post right total hip arthroplasty performed by Dr. Drummond * continue pain control * continue hip precautions * continue incentive spirometry q.2 hours while awake * continue weight-bearing status as tolerated * PT and OT ordered * remove Sal[place] catheter * continue neuro checks * SCDs for DVT prophylaxis, will defer to surgical team for anticoagulation * Case coordination consulted outpatient rehab needs SNF versus home health * advanced diet as tolerated to regular diet * continue nausea medication for postoperative nausea * continue IV fluids overnight due to increased postoperative nausea (2) Osteoarthritis of right hip: Qualifiers: Osteoarthritis type: primary Qualified Code(s): M16.11 - Unilateral primary osteoarthritis, right hip Code(s): M16.11 - Unilateral primary osteoarthritis, right hip Status: Chronic Assessment and Plan: * see above plan of care (3) Hyperlipidemia: Qualifiers: Hyperlipidemia type: mixed hyperlipidemia Qualified Code(s): E78.2 - Mixed hyperlipidemia Code(s): E78.5 - Hyperlipidemia, unspecified Status: Chronic Assessment and Plan: * continue aspirin and atorvastatin (4) Essential hypertension: Code(s): I10 - Essential (primary) hypertension Status: Chronic Assessment and Plan: * blood pressures ranging 128/70-143/69 * continue lisinopril (5) GERD (gastroesophageal reflux disease): Qualifiers: Esophagitis presence: esophagitis presence not specified Qualified Code(s): K21.9 - Gastro-esophageal reflux disease without esophagitis Code(s): K21.9 - Gastro-esophageal reflux disease without esophagitis Status: Chronic Assessment and Plan: * continue Pepcid (6) KELLY (obstructive sleep apnea): Code(s): G47.33 - Obstructive sleep apnea (adult) (pediatric) Status: Acute Assessment and Plan: * Continue home Cpap (7) Obesity (BMI 30-39.9): Code(s): E66.9 - Obesity, unspecified Status: Acute Assessment and Plan: * BMI 33.4, 91.1 kg * educated on low-fat low-cholesterol diet and exercise routine HPI Date of Consult Consult date: 08/05/24 Requesting Physician: Isaac Drummond MD Primary Care Provider: Franco Ohara MD Consult Narrative Narrative: Kate Ryder is a 83 year old female With a significant past medical history of hypertension, GERD, hyperlipidemia, obesity, KELLY, osteopenia, non- Hodgkin's lymphoma who presented to the hospital for an elective right total hip arthroplasty performed by Dr. Drummond today. Patient denies any fever, chills, vomiting, diarrhea, abdominal pain, chest pain or shortness of breath. Patient endorses postoperative nausea however is now more controlled after receiving Compazine. She states that she plans on returning home with her sister instead of acute rehab. We were consulted for medical management while inpa tient. Review of Systems Review of Systems: All systems reviewed & are unremarkable except as noted in HPI and below Constitutional: Constitutional: Reports as per HPI and Reports no additional constitutional complaints Eyes: Eyes: Reports as per HPI and Reports no additional eye complaints ENT: Reports system reviewed and no additional complaints, except as documented and Reports as per HPI Cardiovascular: Cardiovascular: Reports as per HPI and Reports no additional cardiovascular complaints Respiratory: Respiratory: Reports as per HPI and Reports no additional respiratory complaints Gastrointestinal: Gastrointestinal: Reports as per HPI and Reports no additional gastrointestinal complaints Genitourinary: Genitourinary: Reports no additional female genitourinary complaints and Reports as per HPI Musculoskeletal: Musculoskeletal: Reports no additional musculoskeletal complaints and Reports as per HPI Integumentary/Breasts: Skin/Breast: Reports system reviewed and no additional complaints, except as docu and Reports as per HPI Neurologic: Reports system reviewed and no additional complaints, except as documented and Reports as per HPI Psychiatric: Psychiatric: Reports no additional psychiatric complaints and Reports as per HPI [facility] Past Medical History Medical History Arthritis Degenerative arthritis of knee, bilateral Dry eye Essential hypertension GERD (gastroesophageal reflux disease) History of esophageal dilatation Hyperlipidemia Mild episode of recurrent major depressive disorder Non-Hodgkin lymphoma 2019 Obesity (BMI 30-39.9) KELLY (obstructive sleep apnea) Osteopenia Primary osteoarthritis, left shoulder Surgical History Surgical History History of arthroscopy of left knee History of left shoulder replacement 2021-[facility] [place] History of neck surgery 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 Retired. Smoking status: Never smoker Second hand tobacco smoke exposure: No Alcohol intake: current Drinks per week: 2 Alcohol use details: WINE Substance use: never Substance use type: does not use Do You Feel Safe in your Home?: Yes Lack of Transportation: No Lack of Food: Never True Current Housing: Decline to Answer Concerned About Future Housing: Decline to Answer Difficulty Paying Gas/Electric Bills: Decline to Answer Difficulty Paying for Meds: Decline to Answer Currently Unemployed: Decline to Answer Education: Trade/Vocational Certificate Difficulty w/ Childcare or Family Care: No Living arrangements: with friend(s) Additional living arrangements comments: friend Occupation/Education: retired Gender identity (if verbalized by the patient): Female Spiritual care concerns: No Meds Home Medications and Allergies Home Medications Medication Instructions Recorded Confirmed Type calcium carbonate 600 mg PO DAILY 09/29/19 08/05/24 History cranberry concentrate-ascorbic 1 cap PO DAILY 09/29/19 08/05/24 History acid 4,200 mg-20 mg capsule multivitamin 1 tablet PO DAILY 09/29/19 08/05/24 History omega-3 fatty acids 1,000 mg 1,000 mg PO DAILY 09/29/19 08/05/24 History capsule (Fish Oil Concentrate) vitamin B complex 1 tablet PO DAILY 09/29/19 08/05/24 History diphenhydramine 25 1 tablet PO QHS PRN Pain 01/22/23 08/05/24 History mg-acetaminophen 500 mg tablet (Tylenol PM Extra Strength) biotin 5 mg capsule 5 mg PO DAILY 03/25/23 08/05/24 History famotidine 20 mg tablet 20 mg PO QHS #30 tabs 05/04/24 08/05/24 Rx glucosamine 1 tablet PO DAILY 05/25/24 08/05/24 History acetaminophen 650 mg 1,300 mg PO DAILY PRN Pain 07/16/24 08/05/24 History tablet,extended release (Tylenol 8 Hour) polyethylene glycol 3350 17 gram See Rx Instructions .Route 07/16/24 08/05/24 History oral powder packet (Miralax) .COMPLEX PRN Constipation vit C,M-Nk-rhavxs-lutein-zeaxan 60 1 cap PO DAILY 07/16/24 08/05/24 History mg-13.5 mg-15 mg-2 mg-6 mg capsule (Healthy Eyes Lutein-Zeaxanthin) atorvastatin 40 mg tablet See Rx Instructions .Route 07/26/24 08/05/24 Rx .COMPLEX #90 tabs lisinopril 20 mg tablet See Rx Instructions .Route 08/03/24 08/05/24 Rx .COMPLEX #90 tabs montelukast 10 mg tablet 10 mg PO DAILY #90 tabs 08/03/24 08/05/24 Rx omeprazole 40 mg capsule,delayed 40 mg PO DAILY #90 caps 08/03/24 08/05/24 Rx release aspirin 81 mg tablet,delayed 81 mg PO BID 14 days #28 tabs 08/05/24 Rx release cephalexin 500 mg capsule 500 mg PO BID 14 days #28 caps 08/05/24 Rx oxycodone-acetaminophen 5 mg-325 1 - 2 tablet PO Q4-6H PRN pain 7 08/05/24 Rx mg tablet days #30 tabs Allergies Allergy/AdvReac Type Severity Reaction Status Date / Time adhesive tape Allergy Mild RASH Verified 08/05/24 08:43 aspirin Allergy Mild HIVES Verified 08/05/24 08:43 naproxen Allergy Mild HIVES Verified 08/05/24 08:43 avocado Allergy Unknown feel like Verified 08/05/24 08:43 having flu egg Allergy Unknown Hives Verified 08/05/24 08:43 ibuprofen Allergy Unknown Hives Verified 08/05/24 08:43 Vital Signs Vital Signs - 24 hr 08/05/24 09:22 08/05/24 13:07 08/05/24 13:20 Temperature 97.4 F L 97.3 F L Pulse Rate 81 86 82 Respiratory Rate 16 14 14 Blood Pressure 139/68 115/55 L 111/62 Pulse Oximetry 100 100 100 Oxygen Delivery Room Air Simple Face Mask Simple Face Mask Oxygen Flow Rate 8 8 08/05/24 13:35 08/05/24 13:50 08/05/24 14:05 Temperature Pulse Rate 85 81 84 Respiratory Rate 12 17 15 Blood Pressure 133/65 125/82 141/70 H Pulse Oximetry 100 100 100 Oxygen Delivery Nasal Cannula Nasal Cannula Nasal Cannula Oxygen Flow Rate 2 2 2 08/05/24 14:20 08/05/24 14:35 08/05/24 14:50 Temperature Pulse Rate 83 84 84 Respiratory Rate 14 19 16 Blood Pressure 126/61 130/64 137/79 Pulse Oximetry 100 100 100 Oxygen Delivery Nasal Cannula Nasal Cannula Nasal Cannula Oxygen Flow Rate 2 2 2 08/05/24 15:25 08/05/24 15:30 08/05/24 15:40 Temperature 97.3 F L 97.6 F Pulse Rate 88 86 Respiratory Rate 18 18 Blood Pressure 135/64 132/68 Pulse Oximetry 99 100 Oxygen Delivery Room Air Oxygen Flow Rate 08/05/24 16:10 Temperature 98.0 F Pulse Rate 79 Respiratory Rate 18 Blood Pressure 128/70 Pulse Oximetry 99 Oxygen Delivery Oxygen Flow Rate Exam Narrative: General: In no acute distress, well nourished Head: atraumatic, no encephalopathy Eyes: EOMI, PERRLA, sclera clear ENT: moist mucous membranes, nasal passages clear Neck: supple, no JVD, no adenopathy, trachea midline Cardiac: Normal S1 and S2. No murmur, gallops or friction rubs, peripheral pulses intact. Respiratory: Lungs clear to auscultation, no adventitious lung sounds, currently on room air Gastrointestinal: soft, non-distended, non-tender, normoactive bowel sounds. : voiding without difficulty. Extremities: moves all extremities well Skin:Right hip surgical dressing in place which is clean dry and intact Neuro: Alert and oriented x4, cranial nerves intact, no neuro deficits. Psych: normal mood, normal affect, interactive Results Imaging Radiologist's impression: EXAMINATION: XR hip RT min 2V DATE: 08/05/2024 13:36 INDICATION: Right hip arthroplasty TECHNIQUE: 2 views right hip FINDINGS: There is a right bipolar hip arthroplasty in expected position. Subcutaneous gas with soft tissue swelling are consistent with recent surgery. IMPRESSION: 1. Recent right bipolar hip arthroplasty. Reviewed, dictated and finalized at location B. Quality VTE Prophylaxis VTE prophylaxis: mechanical ordered Hospitalist MIPS Advance Care Plan I have confirmed that the patient's Advanced Care Plan is present, code status is documented, or surrogate decision maker is listed in patient medical record.: Yes Medication Reconciliation I have utilized all available resources to obtain, update and review the patients current medications (includes all prescriptions, OTC, herbals, cannabis, and nutritional supplements).: Yes
[2024-08-05] MEDS: HYDROmorphone HCL INJ (*CRX) 1 MG/ML SYR 0.5 MG IV PUSH (16:58)
[2024-08-05] MEDS: PROCHLORPERAZINE EDISYLATE 10 MG/2 ML VIAL IV PUSH (17:49)
[2024-08-05] MEDS: ACETAMINOPHEN 325 MG TABLET 650 MG PO ×2 (18:15→23:58)
[2024-08-05] MEDS: SENNA/DOCUSATE SODIUM TABLET 2 TAB PO (18:15)
[2024-08-05] MEDS: FAMOTIDINE 20 MG TABLET PO (20:23)
[2024-08-05] MEDS: ASPIRIN 81 MG ENTERIC TABLET PO (20:23)
[2024-08-05] MEDS: oxyCODONE/ACETAMINOPHEN (*CRX) 10-325 MG TABLET 1 TAB PO (20:43)
[2024-08-06 00:37] VITALS: BP 145/70; PULSE 92; RESP 18; TEMP 36.6; O2SAT 100
[2024-08-06] MEDS: ceFAZolin 2 GM/D5W 50 ML 2 GM/50 ML BAG IVPB ×2 (03:39→10:57)
[2024-08-06 04:38] VITALS: BP 126/61; PULSE 90; RESP 18; TEMP 36.4; O2SAT 99
[2024-08-06 05:58] LABS: Basophils Percent Auto 0.2 % (0.2-1.2); Hematocrit 35.8 % (37.0-47.0); Hemoglobin 11.7 g/dL (12.0-15.0); Immature Granulocyte Absolute 0.04 K/mm3 (0.00-0.031); Immature Granulocyte Percent A 0.4 % (0-0.5); Lymphocytes Absolute Auto 1.23 K/mm3 (0.9-3.2); Lymphocytes Percent Auto 12.9 % (18.3-44.2); Mean Corpuscular HGB Conc 32.7 g/dl (32-36); Mean Corpuscular Hemoglobin 29.1 pg (26-34); Mean Corpuscular Volume 89.1 fl (80-100); Mean Platelet Volume 9.2 fl (7.4-10.4); Monocytes Absolute Auto 0.8 K/mm3 (0.1-0.6); Monocytes Percent Auto 8.8 % (2.6-8.5); Neutrophils Absolute Auto 7.4 K/mm3 (1.3-6.7); Neutrophils Percent Auto 77.7 % (45.5-73.1); Platelet Count Result 233 k/mm3 (150-375); Red Blood Count 4.02 M/mm3 (4.2-5.4); Red Cell Distribution Width 12.7 % (11.5-14.5); White Blood Count 9.5 K/mm3 (4.5-10.0)
[2024-08-06 06:01] VITALS: TEMP 36.6
[2024-08-06 06:09] LABS: Anion Gap 8 mmol/L (4-12); Blood Urea Nitrogen 11 mg/dL (7-17); Calcium 8.8 mg/dL (8.4-10.2); Carbon Dioxide 25 mmol/L (22-30); Chloride 99 mmol/L (98-107); Estimated CRCL calculation 70 ml/min; Estimated Glomerular Filt Rate > 60; Glucose 121 mg/dL (65-110); Potassium 3.9 mmol/L (3.4-5.0); Sodium 132 mmol/L (137-145)
[2024-08-06] MEDS: ACETAMINOPHEN 325 MG TABLET 650 MG PO ×2 (06:15→10:57)
--- NOTE | 2024-08-06 07:36 | P.PNAN_ITS ---
Anes - Prog Note Post-Op Date/Time: 08/06/24 07:36 Cardiovascular status: normal Respiratory status: normal Airway patency: baseline Mental status: baseline Post-Op hydration status: normal Vital Signs: Last Vital Signs Temp 36.6 C 08/06/24 06:01 Pulse 90 08/06/24 04:38 Resp 18 08/06/24 04:38 BP 126/61 08/06/24 04:38 Pulse Ox 99 08/06/24 04:38 O2 Del Method Room Air 08/05/24 21:22 O2 Flow Rate 2 08/05/24 14:50 Pain Score (VAS): 11/22 I/O: Intake & Output 08/05/24 08/05/24 08/06/24 15:59 23:59 07:59 Intake Total 715 00 5857 Output Total 858 976 8998 Balance 300 -100 -550 Laboratory Tests 08/06/24 05:24 08/06/24 05:24 08/05/24 08/06/24 08:51 05:24 WBC 9.5 RBC 4.02 L Hgb 11.7 L Hct 35.8 L MCV 89.1 MCH 29.1 MCHC 32.7 RDW 12.7 Plt Count 233 MPV 9.2 Immature Gran % (Auto) 0.4 Neut % (Auto) 77.7 H Lymph % (Auto) 12.9 L [place] % (Auto) 8.8 H Eos % (Auto) 0.0 Baso % (Auto) 0.2 Lymph # (Auto) 1.23 [place] # (Auto) 0.8 H Eos # (Auto) 0.0 Baso # (Auto) 0.0 Abs Immat Gran (auto) 0.04 H Absolute Neuts (auto) 7.4 H Absolute Nucleated RBC 0.000 Nucleated RBC % 0.0 Sodium 132 L Potassium 3.9 Chloride 99 Carbon Dioxide 25 Anion Gap 8 BUN 11 D Creatinine 0.60 L Estim Creat Clear Calc 70 Estimated GFR > 60 Glucose 121 H Calcium 8.8 Blood Type A Negative Antibody Screen Negative Post-procedural complaints: none Patient Feedback: Patient satisfied with anesthetic care.
--- NOTE | 2024-08-06 07:56 | PM.DS ---
DS: Admitting Diagnosis Discharge Date 08/06/24 Admitting Diagnosis Hip arthritis DS: Discharge Diagnosis Discharge Diagnosis (1) Status post total hip replacement, right: Code(s): Z96.641 - Presence of right artificial hip joint Status: Acute Assessment and Plan: Postop day 1: Total hip arthroplasty. Patient tolerated procedure well. No complications. Pain manageable with pain medication. No numbness or tingling. We had a lengthy discussion regarding postoperative wound care, limitations, expectations, and exercises. Patient shows good understanding. Patient has had initial physical therapy and is tolerating it well. DVT prophylaxis: 81 mg baby aspirin b.i.d. for 14 days. Short frequent walks. Pain medication: Percocet. Antibiotic: Keflex due to scratches distal to the incision on the operative leg pre-operatively. Patient has followup appointment with Dr. Drummond in 3 weeks DS: Summary Hospital Course Reason for hospitalization: Total hip arthroplasty Hospital Course: Patient tolerated procedure well. Has had initial PT/OT and made good progress. Status at Discharge Functional status at discharge: uses cane/walker Overall status at discharge: patient is progressing back to baseline Time Spent with Patient Time attestation: Total time spent providing and/or coordinating discharge services: Exam Narrative: Overweight 83 y/o female. Resting comfortably in bed. Wearing compression socks bilaterally. Dressing dry and intact with no drainage. Mild swelling. No ecchymosis. No erythema. No hematoma. Range of motion limited due to pain. Calf nontender. Thigh nontender. Neurologic status intact. No varicosities. Distal pulses palpable. DS: Data Data Completed and Pending Labs on day of discharge: Labs from last 24 hours 08/06/24 08/05/24 05:24 08:51 WBC 9.5 RBC 4.02 L Hgb 11.7 L Hct 35.8 L MCV 89.1 MCH 29.1 MCHC 32.7 RDW 12.7 Plt Count 233 MPV 9.2 Immature Gran % (Auto) 0.4 Neut % (Auto) 77.7 H Lymph % (Auto) 12.9 L [place] % (Auto) 8.8 H Eos % (Auto) 0.0 Baso % (Auto) 0.2 Lymph # (Auto) 1.23 [place] # (Auto) 0.8 H Eos # (Auto) 0.0 Baso # (Auto) 0.0 Abs Immat Gran (auto) 0.04 H Absolute Neuts (auto) 7.4 H Absolute Nucleated RBC 0.000 Nucleated RBC % 0.0 Sodium 132 L Potassium 3.9 Chloride 99 Carbon Dioxide 25 Anion Gap 8 BUN 11 D Creatinine 0.60 L Estim Creat Clear Calc 70 Estimated GFR > 60 Glucose 121 H Calcium 8.8 Blood Type A Negative Antibody Screen Negative Discharge Plan Discharge Patient Disposition: Home, Self-Care Discharge Instructions: See green instruction sheets Stand Alone Forms: General Discharge Instructions Follow-up/Referrals: Malaika Easley PA [Physician Staff Development Coordinator] - Discharge Medications: New aspirin 81 mg tablet,delayed release (DR/EC) 81 mg PO BID 14 Days Qty: 28 0RF oxycodone-acetaminophen 5-325 mg tablet 1 - 2 tablet PO Q4-6H PRN (Reason: pain) 7 Days Qty: 30 0RF cephalexin 500 mg capsule 500 mg PO BID 14 Days Qty: 28 0RF Continued diphenhydramine-acetaminophen [Tylenol PM Extra Strength] 25-500 mg tablet 1 tablet PO QHS PRN (Reason: Pain) glucosamine 1 tablet PO DAILY Rx Instructions: Take Daily famotidine 20 mg tablet 20 mg PO QHS Qty: 30 11RF biotin 5 mg capsule 5 mg PO DAILY Healthy Eyes Lutein-Zeaxanthin 60 mg-13.5 mg- 15 mg-2 mg-6 mg capsule 1 cap PO DAILY polyethylene glycol 3350 [Miralax] 17 gram Powder In Packet See Rx Instructions .ROUTE .COMPLEX PRN (Reason: Constipation) Rx Instructions: take as needed omega-3 fatty acids [Fish Oil Concentrate] 1,000 mg capsule 1,000 mg PO DAILY cranberry conc-ascorbic acid 4,200-20 mg capsule 1 cap PO DAILY multivitamin Tablet 1 tablet PO DAILY vitamin B complex Tablet 1 tablet PO DAILY calcium carbonate 600 mg calcium (1,500 mg) tablet 600 mg PO DAILY atorvastatin 40 mg tablet See Rx Instructions .ROUTE .COMPLEX Qty: 90 0RF Hold Instructions: Patient Condition Dose Instruction: TAKE 1 TABLET BY MOUTH DAILY Rx Instructions: TAKE 1 TABLET BY MOUTH DAILY lisinopril 20 mg tablet See Rx Instructions .ROUTE .COMPLEX Qty: 90 0RF Dose Instruction: TAKE 1 TABLET BY MOUTH DAILY Rx Instructions: TAKE 1 TABLET BY MOUTH DAILY montelukast 10 mg tablet 10 mg PO DAILY Qty: 90 1RF omeprazole 40 mg capsule,delayed release(DR/EC) 40 mg PO DAILY Qty: 90 1RF Held acetaminophen [Tylenol 8 Hour] 650 mg Tablet Extended Release 1,300 mg PO DAILY PRN (Reason: Pain) Hold Instructions: Resume on 08/19/24. Oxycodone has Tylenol in it. Do not take more than 3,000 mg of Tylenol total in 24 hours.
[2024-08-06] MEDS: SENNA/DOCUSATE SODIUM TABLET 2 TAB PO (08:34)
[2024-08-06] MEDS: PANTOPRAZOLE 40 MG TABLET PO (08:34)
[2024-08-06] MEDS: ATORVASTATIN 40 MG TABLET PO (08:34)
[2024-08-06] MEDS: MONTELUKAST SODIUM 10 MG TABLET PO (08:34)
[2024-08-06] MEDS: ASPIRIN 81 MG ENTERIC TABLET PO (08:34)
[2024-08-06] MEDS: lisinopriL 20 MG TABLET PO (08:34)
[2024-08-06 08:52] VITALS: BP 112/70; PULSE 74; RESP 16; TEMP 36.8; O2SAT 98
--- NOTE | 2024-08-06 13:51 | P.PNIM_ITS ---
Progress Note: A&P Assessment and Plan (1) Status post total hip replacement, right: Code(s): Z96.641 - Presence of right artificial hip joint Status: Acute Assessment and Plan: * status post right total hip arthroplasty performed by Dr. Drummond * continue pain control * continue hip precautions * continue incentive spirometry q.2 hours while awake * continue weight-bearing status as tolerated * PT and OT ordered * DVT prophylaxis per surgical team * Case coordination consulted for discharge planning (2) Osteoarthritis of right hip: Qualifiers: Osteoarthritis type: primary Qualified Code(s): M16.11 - Unilateral primary osteoarthritis, right hip Code(s): M16.11 - Unilateral primary osteoarthritis, right hip Status: Chronic Assessment and Plan: * see above plan of care (3) Hyperlipidemia: Qualifiers: Hyperlipidemia type: mixed hyperlipidemia Qualified Code(s): E78.2 - Mixed hyperlipidemia Code(s): E78.5 - Hyperlipidemia, unspecified Status: Chronic Assessment and Plan: * LFTs normal in May. * Continue atorvastatin (4) Essential hypertension: Code(s): I10 - Essential (primary) hypertension Status: Chronic Assessment and Plan: Patient's blood pressure was reviewed on 08/06 Blood pressure remains well controlled. Will continue current medications. (5) GERD (gastroesophageal reflux disease): Qualifiers: Esophagitis presence: esophagitis presence not specified Qualified Code(s): K21.9 - Gastro-esophageal reflux disease without esophagitis Code(s): K21.9 - Gastro-esophageal reflux disease without esophagitis Status: Chronic Assessment and Plan: * continue Pepcid (6) KELLY (obstructive sleep apnea): Code(s): G47.33 - Obstructive sleep apnea (adult) (pediatric) Status: Acute Assessment and Plan: * Continue home Cpap (7) Obesity (BMI 30-39.9): Code(s): E66.9 - Obesity, unspecified Status: Acute Assessment and Plan: * BMI 33.4, 91.1 kg * educated on low-fat low-cholesterol diet and exercise routine Subjective Date/time seen: 08/06/24 13:51 Interval history: 83yo female with HTN and KELLY here for elective hip replacement. Patient is tolerating the pain well. Eating normally. She did have nausea yesterday but not today. She tolerated her CPAP last night. No chest pain or shortness of breath. She is ambulating with a walker in the room. Exam Narrative: AF 98.2 112/70 74 16 98% ra Gen - NARD Chest - CTA bilaterally, nml RR CV - RRR S1/S2 Abd - Soft, NT/ND, Positive BS Ext - No pedal edema. Garth hose in place. Right hip dressing is clean, dry and intact Psych - Nml mood and affect Skin - Warm and dry Objective Data Vital Signs Vital Signs: Vital Signs - 24 hr 08/05/24 14:05 08/05/24 14:20 08/05/24 14:35 Temperature Pulse Rate 84 83 84 Respiratory Rate 15 14 19 Blood Pressure 141/70 H 126/61 130/64 Pulse Oximetry 100 100 100 Oxygen Delivery Nasal Cannula Nasal Cannula Nasal Cannula Oxygen Flow Rate 2 2 2 08/05/24 14:50 08/05/24 15:25 08/05/24 15:30 Temperature 97.3 F L Pulse Rate 84 88 Respiratory Rate 16 18 Blood Pressure 137/79 135/64 Pulse Oximetry 100 99 Oxygen Delivery Nasal Cannula Room Air Oxygen Flow Rate 2 08/05/24 15:40 08/05/24 16:10 08/05/24 18:20 Temperature 97.6 F 98.0 F Pulse Rate 86 79 99 Respiratory Rate 18 18 20 Blood Pressure 132/68 128/70 143/69 H Pulse Oximetry 100 99 97 Oxygen Delivery Oxygen Flow Rate 08/05/24 20:27 08/05/24 20:30 08/06/24 00:37 Temperature 98 F 97.8 F Pulse Rate 91 92 Respiratory Rate 16 18 Blood Pressure 144/81 H 145/70 H Pulse Oximetry 100 100 Oxygen Delivery Room Air Oxygen Flow Rate 08/05/24 21:22 08/06/24 04:38 08/06/24 06:01 Temperature 97.6 F 98 F Pulse Rate 90 Respiratory Rate 18 Blood Pressure 126/61 Pulse Oximetry 98 99 Oxygen Delivery Room Air Oxygen Flow Rate 08/06/24 07:46 08/06/24 08:00 08/06/24 08:52 Temperature 98.2 F Pulse Rate 74 Respiratory Rate 16 Blood Pressure 112/70 Pulse Oximetry 98 Oxygen Delivery Room Air Room Air Oxygen Flow Rate Intake/Output Intake/Output: Intake & Output 08/03/24 08/04/24 08/05/24 08/06/24 23:59 23:59 23:59 23:59 Intake Total 450 2510 Output Total 250 2100 Balance 200 410 Meds/Results Radiology Results: ITS Impressions Hip X-Ray 08/05/24 13:40 IMPRESSION: 1. Recent right bipolar hip arthroplasty. Labs Labs: Laboratory Results - last 24 hr 08/06/24 05:24 WBC 9.5 RBC 4.02 L Hgb 11.7 L Hct 35.8 L MCV 89.1 MCH 29.1 MCHC 32.7 RDW 12.7 Plt Count 233 MPV 9.2 Immature Gran % (Auto) 0.4 Neut % (Auto) 77.7 H Lymph % (Auto) 12.9 L [place] % (Auto) 8.8 H Eos % (Auto) 0.0 Baso % (Auto) 0.2 Lymph # (Auto) 1.23 [place] # (Auto) 0.8 H Eos # (Auto) 0.0 Baso # (Auto) 0.0 Abs Immat Gran (auto) 0.04 H Absolute Neuts (auto) 7.4 H Absolute Nucleated RBC 0.000 Nucleated RBC % 0.0 Sodium 132 L Potassium 3.9 Chloride 99 Carbon Dioxide 25 Anion Gap 8 BUN 11 D Creatinine 0.60 L Estim Creat Clear Calc 70 Estimated GFR > 60 Glucose 121 H Calcium 8.8
== END 2024-08-06 12:40 | disposition home or self-care (01) ==
LOC: ANHSURGERY 10:26 → ANH3MED 15:28
PROVIDERS: Physician Assistant Surgical; PCP Family Medicine; Visit Provider Orthopaedic Surgery
PROC: (CPT 27130; principal; 2024-08-05 10:30)
DX: M16.11 Unilateral primary osteoarthritis, right hip (principal); M25.751 Osteophyte, right hip; E78.2 Mixed hyperlipidemia; I10 Essential (primary) hypertension; K21.9 Gastro-esophageal reflux disease without esophagitis; M19.012 Primary osteoarthritis, left shoulder; M17.0 Bilateral primary osteoarthritis of knee; G47.33 Obstructive sleep apnea (adult) (pediatric); M85.88 Other specified disorders of bone density and structure, other site; E66.9 Obesity, unspecified; Z68.33 Body mass index [BMI] 33.0-33.9, adult; Z79.82 Long term (current) use of aspirin; Z79.891 Long term (current) use of opiate analgesic; Z98.890 Other specified postprocedural states; Z85.72 Personal history of non-Hodgkin lymphomas; Z87.19 Personal history of other diseases of the digestive system; Z82.49 Family history of ischemic heart disease and other diseases of the circulatory system
CPT/HCPCS: 27130; 36415; 73502; 80048; 85025; 86850; 86900; 86901; 97110; 97161; 97165; 97530; 97535; A9270; C1776; J0171; J0690; J0780; J1171; J1200; J2003; J2270; J2405; J2704; J2795; J3010; J7030; J7120

== ENCOUNTER 2024-08-25 12:41 | Outpatient (CLI) | payer MEDICARE, SELFPAY ==
--- NOTE | ~2024-08-25 | XR_ITS ---
XR hip RT 2V w AP pelvis Ordering provider: JULIANO Edmondson History: . Z96.641 - Presence of right artificial hip joint . Comparison: None. FINDINGS: BONES: No acute fracture or dislocation. HIP JOINT SPACES: MRI right hip arthroplasty. Mild to moderate osteoarthritic changes of the left hip . SACROILIAC JOINT SPACES/LUMBAR SPINE: The sacroiliac joint spaces are normal. Mild degenerative burns es of the visualized lower lumbar spine. PUBIC SYMPHYSIS: Pubic symphysitis. SOFT TISSUES: Normal. IMPRESSION: No acute osseous abnormality pelvis and right hip. Reviewed, dictated and finalized at location A. NESS UNIT DIRECTOR
== END 2024-08-25 12:42 | disposition home or self-care (01) ==
PROVIDERS: PCP Family Medicine; Visit Provider Physician Assistant Surgical
DX: Z96.641 Presence of right artificial hip joint (principal)
CPT/HCPCS: 73502

== ENCOUNTER 2024-11-03 09:43 | Outpatient (CLI) | payer MEDICARE, SELFPAY ==
--- NOTE | ~2024-11-03 | CT_ITS ---
CT of the Abdomen and Pelvis: Indication: Lymphoma Technique: 2.5 mm axial scans were obtained through the abdomen and pelvis following intravenous adm inistration of 100 cc of Omnipaque 350. Dose reduction technique was used on this scan by utilizing a utomated exposure control and iterative reconstruction technique. The dose-length product (DLP) was 1 055.90 mGy-cm. COMPARISON: 08/28/2023 Findings: Scans through the lung bases are unremarkable. The liver, spleen, pancreas, gallbladder, adrenals and kidneys are within normal limits. No evidence of aortic aneurysm. No lymphadenopathy. No bowel obstruction or bowel wall thickening. There is no evidence to suggest acute appendicitis. Sm all fat-containing umbilical hernia noted. Images through the pelvis were performed. Urinary bladder unremarkable. No pelvic mass seen. No ascit es. There is degenerative spondylosis of the lumbar spine. Impression: No pathologic lymphadenopathy seen. Reviewed, dictated and finalized at [facility]. ATE INQUIRY AGENT Impression: No pathologic lymphadenopathy seen.
[2024-11-03 10:13] LABS: Estimated Glomerular Filt Rate > 60
--- OUTSIDE RECORDS SUMMARY | 2024-11-04 22:47 | XMS_ITS | Referral Summary ---
Author Organization [facility] Address [address] [place] [address] Care Team Providers Care Iron Melter Name Role Phone Macy Aguayo MD Primary Care Provider [phone] Source Comments [facility],non-owned Affiliates and Associated Physician Practices is amultiple site organization consisting of ambulatory clinics and hospital sitesin [place], [place], [place] and [place]. This disclosure is being madepursuant to the Care Everywhere program and may not contain all information available regarding this patient. Last updated 18.[facility] [employer] Social History Tobacco Use Types Packs/Day Years Used Date Smoking Tobacco: Never Assessed Sex and Gender Information Value Date Recorded Sex Assigned at Not on file Gender Identity Not on file Sexual Orientation Not on file Plan of Treatment Not on file Care Teams Iron Melter Relationship Specialty Start Date End Date Macy Aguayo MD [address] [place] [address] DRMaría Elena [address] [place] [id number] PCP - General 05/12/19
--- OUTSIDE RECORDS SUMMARY | 2024-11-04 22:47 | XMS_ITS | Encounter Summary ---
Author Organization [facility] Address [address] [place] [address] Care Team Providers Care Food Dehydrator Operator Name Role Phone Macy Aguayo MD Primary Care Provider [phone] Encounter Details Date Type Department Care Team (Late st Contact Info) Description 06/16/2019 Lab Requisition [facility] [address] [place] [address] Ubaldo Ugalde MD [address] [place] [address] Social History Tobacco Use Types Packs/Day Years Used Date Smoking Tobacco: Never Assessed Sex and Gender Information Value Date Recorded Sex Assigned at Not on file Gender Identity Not on file Sexual Orientation Not on file documented as of this encounter Plan of Treatment Not on file documented as of this encounter Procedures Procedure Name Priority Date/Time Associated Diagnosis Comments BONE MARROW BIOPSY (STL) Routine 06/11/2019 8:19 AM CDT documented in this encounter Results * BONE MARROW BIOPSY (STL) (06/11/2019 8:19 AM CDT) Case Report Bone Marrow Patholog y Report ?Case: [id number] ? Authorizing Provider: ??Ubaldo Ugalde MD ?Collected: ? 06/11/2019 08:19 AM ? Ordering Location: ? [facility] ? Received: ?06/16/2019 01:06 PM ? Pathologist: ? Sheree Elise MD ? Specimens: ?? A) - Bone Marrow Core, [id number] ? B) - Bone Marrow Clot, [id number] ? C) - Blood Peripheral, [id number] ? D) - Bone Marrow Aspirate, [id number] ? 06/17/2019 11:[address] [facility] Final Diagnosis Bone marrow, aspirate, clot section, and core biopsy: - Normocellular marrow with maturing trilineage hematopoiesis. - No evidence of lymphoma or high-grade myeloid neoplasm. - See comment. Peripheral blood smear: - Normal white blood cell count. - See comment. 06/17/2019 11:[address] [facility] Comment Overall, the bone marrow specimen is normocellular for age with maturing trilineage hematopoiesis and no evidence of lymphoma, a high-grade myeloid neoplasm, or significant dyspoiesis. Concurrent bone marrow flow cytometry ([id number]) demonstrates no evidence of non-Hodgkin lymphoma or a high-grade myeloid neoplasm. Correlation with clinical findings and relevant cytogenetic/molecular testing is required. AQ/SEKOU 06/17/2019 11:[address] [facility] PATH[facility] Peripheral Smear Description Manual Differential Count (100 cells): 69% neutrophils, 23% lymphocytes, 3% monocytes, 1% eosinophils, and 4% bands. / 100 WBCs. Leukocyte number: normal. Granulocyte morphology: normal. Lymphocyte morphology: normal. Erythrocyte number: normal. Erythrocyte morphology: normocytic. Anisopoikilocytosis: not signifcant. Polychromasia: not significant. Platelet number: normal. Platelet morphology: normal. 06/17/2019 11:[address] [facility] Bone Marrow Aspirate Differential count : not performed due to hemodilute nature of the specimen. Specimen quality: suboptimal. Spicules: absent. Trilineage Hematopoiesis: cannot be accurately assessed due to absent spicules. Myeloid:Erythroid ratio: cannot be accurately assessed due to hemodilute nature of the specimen. Myeloid Maturation: present. Erythroid Maturation: present. Megakaryocyte morphology: normal. Storage iron (by special stain): no contributory due to hemodilute nature of the specimen. Sideroblastic iron (by special stain): no ring sideroblasts. 06/17/2019 11:[address] [facility] PATH[facility] Bone Marrow Core Biopsy and Clot Section Description Specimen quality: adequate. Cellularity: normocellular 20-25% Trilineage Hematopoiesis: adequate. Myeloid to Erythroid ratio: normal. Myeloid maturation and localization: normal. Erythroid maturation and localization: normal. Megakaryocyte number: normal. Megakaryocyte distribution: normal. Lymphoid aggregates: Few small aggregates noted Bone trabeculae: normal. Blood vessels: normal. Other: No abnormalities identified Clot section marrow particles: few. Clot section morphology: similar to core biopsy. Iron stain shows adequate storage iron Immunohistochemical staining at [facility] pathology with appropriate controls are as follows: CD3 and CD20 highlight small lymphoid aggregates composed of mixture of T and B lymphocytes , inconclusive for involvement by lymphoma. 06/17/2019 11:[address] [facility] PATH[facility] Clinical History 06/17/2019 11:21 AM T [facility] PATHOLOGY LAB Materials Received Received are 17 slides and 3 blocks labeled as [id number] along with the outside pathology report. The materials originate from [place] [id number]. All materials are returned to the referring institution, along with a copy of our final report. 06/17/2019 11:21 AM T [facility] PATHOLOGY LAB Disclaimer The performance characteristics of all immunohistochemical and indirect immunofluorescence stains (if any) cited in this report were determined by the Histopathology Laboratory of [facility]. Some of these tests were developed by our own laboratory and have not been cleared or approved by the US Food and Drug Administration. The FDA does not require this test to go through premarket FDA review. These tests are used for clinical purposes. They should not be regarded as investigational or for research. This laboratory is certified under the Clinical Laboratory Improvement Amendments (CLIA) as qualified to perform high complexity clinical laboratory testing. This case has been personally reviewed and interpreted by the attending (teaching) pathologist. 06/17/2019 11:21 AM T [facility] PATHOLOGY LAB Embedded Images 06/17/2019 11:21 AM CDT [facility] PATH[facility] LAB Pathology/Cytology SPECIMEN FROM BONE MARROW OBTAINED BY ASPIRATION / Unknown 06/11/2019 8:19 AM CDT 06/16/2019 1:06 PM CDT Miscellaneous samples (specimen) BONE MARROW CLOT SPECIMEN / Unknown 06/11/2019 8:19 AM CDT 06/16/2019 1:06 PM CDT Miscellaneous samples (specimen) PERIPHERAL BLOOD / Unknown 06/11/2019 8:19 AM CDT 06/16/2019 1:06 PM CDT Miscellaneous samples (specimen) SPECIMEN FROM BONE MARROW OBTAINED BY ASPIRATION / Unknown 06/11/2019 8:19 AM CDT 06/16/2019 1:06 PM CDT Ubaldo Ugalde MD LAB - PATHOLOGY/CYTO LOGY ORDERABLES [facility] LAB [address] [phone] documented in this encounter Visit Diagnoses Not on filedocumented in this encounter Care Teams Food Dehydrator Operator Relationship Specialty Start Date End Date Macy Aguayo MD [address] [place] [address] PCP - General 05/12/19 documented as of this encounter
--- OUTSIDE RECORDS SUMMARY | 2024-11-04 22:47 | XMS_ITS | Continuity of Care Document ---
Author Organization [facility] Address [address] [place] [address] Phone Care Team Providers Care Community Reinvestment Act Officer Name Role Phone Earnest Fortune MD Unavailable [...] Office/outpa tient visit,est, low [facility], [address] [place], [place] [address], [id number], tel:[phone] [facility] Left shoulder (chief complaint) Presence of left artificial shoulder joint 3 [place]. [address] [place] [address], [facility] [address], [place], [place], [id number] , . tel:[phone] Referring Provider: Earnest Lakhani, [address] [place] [address] [address], [place], [address] . tel:[phone] Office/outpa tient visit,est, [facility], [address] [address], [place], [place], [id number], [place] tel:[phone] [facility] New Shoulder (chief complaint) Pain in right shoulderPresence of left artificial shoulder jointPrimary osteoarthritis, right shoulder 2 [place]. [address] [facility] [place] [address], [place], [place], [id number] , [place]. tel:[phone] Referring Provider: Earnest Lakhani, [address] [facility] [facility] [address] [facility], [place], [address] . tel:[phone] [facility], [facility] [address], [place], [place], [id number], [place] tel:[phone] [facility] Left shoulder (chief complaint) Presence of left artificial shoulder joint 2 [place]. [address] [facility], [place] [address], [place], [place], [id number] , [place]. tel:[phone] Referring Provider: Earnest Lakhani, [address] [facility] [facility] [address] [facility], [place], [address] . tel:[phone] Office/outpa tient visit,new, [facility], [address] [address], [place], [place], [id number], [place] [phone] [facility] Left Shoulder Pain Pain In Rt Shoulder Also (chief complaint) Primary osteoarthritis, left shoulder 2 [place]. [address] [facility], [facility] [address], [place], [place], [id number] , [place]. tel:[phone] Referring Provider: Earnest Lakhani, [address] [address], [place], [address] . tel:[phone] Family History Family Member Type Diagnosis Age [...] Provider Payers Payer name Insurance type Covered alliance party ID Authoriza tion(s) Medicare [place] W[place] Part B MB [id number] Annia [employer] Marc wayne [facility] [id number] Social History Type Description Quantity Date Captured [...]
--- OUTSIDE RECORDS SUMMARY | 2024-11-04 22:47 | XMS_ITS | Encounter Summary ---
Author Organization [facility] Address [address] [place] [address] Care Team Providers Care Bicycle Technician Name Role Phone Franco Ohara MD Primary Care Provider [phone] Encounter Details Date Type Department Care Team (Late Contact Info) Description 07/15/2019 Chart Note [facility] Radiation Therapy [address] [place] [address] [place] [address] [place] [address] Social History Tobacco Use Types Packs/Day Years Used Date Smoking Tobacco: Never Smokeless Tobacco: Never Alcohol Use Standard Drinks/Week Comments Yes 0 (1 standard drink = 0.6 oz pur e alcohol) Comments No Sex and Gender Information Value Date Recorded Sex Assigned at Not on file Legal Sex Female 5:04 PM CDT Gender Identity Not on file Sexual Orientation Not on file documented as of this encounter Plan of Treatment Upcoming Encounters Date Type Department Care Team (Late Contact Info) Description 11/08/2024 11:00 AM BATTING MACHINE OPERATOR INSULATION Office Visit [facility] [place] [address] [place] [address] Elias Bryan MD [address] [place] [address] documented as of this encounter Visit Diagnoses Not on filedocumented in this encounter Care Teams Bicycle Technician Relationship Specialty Start Date End Date Franco Ohara MD PCP - General Family Practice 02/25/23 documented as of this encounter
--- OUTSIDE RECORDS SUMMARY | 2024-11-04 22:47 | XMS_ITS | Clinical Summary ---
Author Organization [facility] Address [address] [address] Phone Care Team Providers Care Behavioral Analyst Name Role Phone Macy Aguayo MD Unavailable [phone] Madhu Flaherty DO Unavailable [phone] Macy Aguayo MD Primary Care Provider [phone] Allergies Active Allergy Reactions Criticality Noted Date Comments Avocado Unknown 04/01/2017 Egg White (Diagnostic) Unknown 04/01/2017 Medications atorvastatin (LIPITOR) 80 MG Tablet Take 80 mg by mouth daily. Active montelukast (SINGULAIR) 10 MG Tablet Take 10 mg by mouth daily. Active calcium 600 MG Tablet Take 1,200 mg by mouth daily. Active CRANBERRY-VITAM IN C PO Take by mouth daily. Active Cholecalciferol (VITAMIN D3) 1000 UNIT Tablet Take 1 Tab by mouth daily. Active vitamin B complex-C (ALLBEE-C) Tablet Take 1 Tab by mouth daily. Active Multiple Vitamins-Minera ls (MULTIVITAMIN PO) Take by mouth daily. Active [place]-3 Fatty Acids (FISH OIL) 1200 MG Capsule Take 1,200 mg by mouth daily. Active Magnesium 500 MG TabletIndicatio ns:take 3 times a week Take 1 Tab by mouth. Active Selenium 100 MCG Capsule Take 1 Cap by mouth daily. Active Acetylcysteine (R-VGUTCH-R-CYS TEINE PO) Take 300 mg by mouth daily. Active omeprazole (PRILOSEC) 40 MG CAPSULE DELAYED RELEASE TAKE ONE CAPSULE BY MOUTH DAILY 90 Cap 3 07/13/2019 Active Immunizations Immunization Administration Dates Next Due Covid-19, Mrna, Lnp-s, PF, 1 00 mcg/0.5 mL Dose (Moderna) 12/23/2020,11/25/2020 Family History Medical History Relation Name Comments Congestive Heart Failure Father Hypertension Mother Stroke Mother Relation Name Status Comments Father Mother Social History Tobacco Use Types Packs/Day Years Used Date Smoking Tobacco: Never Smokeless Tobacco: Never Alcohol Use Standard Drinks/Week Comments Yes 2 (1 standard drink = 0.6 oz pur e alcohol) Comments Unknown Sex and Gender Information Value Date Recorded Sex Assigned at Not on file Legal Sex Female 10:29 PM CDT Gender Identity Not on file Sexual Orientation Not on file Plan of Treatment Health Maintenance Due Date Last Done Comments DEXA Bone Density 1940 Hepatitis C Virus (HCV) Screening 1940 Pneumococcal Immunization (50+ years) (2 of 2 - PPSV23) 08/26/2017 08/26/2016 Respiratory Syncytial Virus (RSV) Immunization (Adult) (1 - 1-dose 75+ series) 2017 Influenza Immunization (#1) 2024 10/0 10/2017, 08/17/2017, 08/21/2016, Additional history exists SARS-COV-2 Immunization ( season) 2024 03/06/2022, 08/28/2021, 12/23/2020, Additional history exists Pneumococcal Immunization Combined Discontinued 08/26/2016 DTaP/Tdap/Td Immunization Discontinued 08/24/2017 TdaP Immunization Completed 08/24/2017 Zoster Immunization Completed 07/06/2020, 05/03/2020, 08/18/2015, Additional history exists Hepatitis B Immunization Aged Out No longer eligible based on patient's age to complete this topic Meningococcal Immunization (ACWY) Aged Out No longer eligible based on patient's age to complete this topic Rotavirus Immunization Aged Out No lo nger eligible based on patient's age to complete this topic Insurance MEDICARE [id number] Care Teams Behavioral Analyst Relationship Specialty Start Date End Date Macy Aguayo MD [address] [place] [address] [place] [address] PCP - General Technical Sme 03/06/17 Macy Aguayo MD [address] [place] [address] [place] [address] Technical Sme 11/05/16 Madhu Flahetry DO [address] [place] [address] [place] [address] Consulting Physician Gastroenterology 03/06/17
--- OUTSIDE RECORDS SUMMARY | 2024-11-04 22:47 | XMS_ITS | Clinical Summary ---
Author Organization [facility] Address [address] [place] [address] Care Team Providers Care Washery Engineer Name Role Phone Macy Aguayo MD Primary Care Provider [phone] Source Comments [facility],non-owned Affiliates and Associated Physician Practices is amultiple site organization consisting of ambulatory clinics and hospital sitesin [place], [place], [place] and [place]. This disclosure is being madepursuant to the Care Everywhere program and may not contain all information available regarding this patient. Last updated 18.[facility] Social History Tobacco Use Types Packs/Day Years Used Date Smoking Tobacco: Never Assessed Sex and Gender Information Value Date Recorded Sex Assigned at Not on file Gender Identity Not on file Sexual Orientation Not on file Plan of Treatment Health Maintenance Due Date Last Done Comments BONE DENSITY TESTING 1940 MEDICARE AWV ? 12 MONTHS 1940 DTAP/TDAP/TD VACCINES (1 - Tdap) 1961 PNEUMOCOCCAL VACCINE 50+ (1 of 1 - PCV) 1992 ZOSTER VACCINE (1 of 2) 1992 Respiratory Syncytial Virus (RSV) Vaccine Pt: or over 60 yrs (1 - 1-dose 75+ series) 2017 COVID-19 VACCINE ( - 2023-2 5 season) 2024 INFLUENZA VACCINE (#1) 2024 DEPRESSION SCREENING 10/13/2024 HEPATITIS B VACCINE Aged Out No longe r eligible based on patient's age to complete this topic HIB VACCINE Aged Out No longer eligi ble based on patient's age to complete this topic HPV VACCINE Aged Out No longer eligi ble based on patient's age to complete this topic MENINGOCOCCAL (Group B) VACCINE Aged Out No longer eligible based on patient's age to complete this topic MENINGOCOCCAL VACCINE Aged Out No goldie birgit eligible based on patient's age to complete this topic Care Teams Washery Engineer Relationship Specialty Start Date End Date Macy Aguayo MD [address] [place] [address] PCP - General 05/12/19
--- OUTSIDE RECORDS SUMMARY | 2024-11-04 22:47 | XMS_ITS | Encounter Summary ---
Author Organization [facility] Address [address] [place] [address] Care Team Providers Care News Assignment Editor Name Role Phone Macy Aguayo MD Primary Care Provider Encounter Details Date Type Department Care Team (Late st Contact Info) Description 05/12/2019 Lab Requisition [facility] [address] [place] [address] Ubaldo Ugalde MD [address] [place] [address] Social History Tobacco Use Types Packs/Day Years Used Date Smoking Tobacco: Never Assessed Sex and Gender Information Value Date Recorded Sex Assigned at Not on file Gender Identity Not on file Sexual Orientation Not on file documented as of this encounter Plan of Treatment Not on file documented as of this encounter Procedures Procedure Name Priority Date/Time Associated Diagnosis Comments PATHOLOGY TISSUE Routine 05/10/2019 10:3 1 AM CDT documented in this encounter Results * PATHOLOGY TISSUE (05/10/2019 10:31 AM CDT) Case Report Surgical Pathology Report ? Case: [id number] ? Authorizing Provider: ??Ubaldo Ugalde MD ?Collected: ? 05/10/2019 10:31 AM ? Pathologist: ? Roxanna Mason MD ?? Received: ?05/12/2019 10:31 AM ? Specimen: ?Lymph Node Biopsy, [id number] ? 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 - See description. 05/13/2019 12:40 PM [facility] Microscopic Description and Comment Review of the tissue demonstrates thin cores of lymphoid tissue. The cells are large in size, pleomorphic, and have a diffuse infiltration pattern. No necrosis is identified. Immunohistochemistry is performed on the tissue in the [facility] Department of Pathology to further characterize this infiltrate, particularly in light of the flow cytometry testing (described below). All controls are appropriately reactive. The majority of the large infiltrating cells are B-cells that express CD10, CD20, BCL-2, and c-MYC. CD21 fails to demonstrate the presence of follicular dendritic cell meshworks in the submitted tissue. CD30 is negative. The proliferation index by Ki-67 is estimated at 40-50% in the B-cells. There are numerous infiltrating T-cells that express CD3, CD5, and CD7. CD4-positive cells outnumber CD8-positive cells. CD34 is negative. CD1a and TdT demonstrate scattered, singly-distributed T-lymphoblasts in a few cores of the tissue. Concurrent flow cytometry ([employer], [id number]) describes two cell populations. The first population, comprising 29% of the sample, is a DR87-yatuwytf monoclonal B-cell population. The second population, estimated at 3% of the sample, consists of T-cell precursors. 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 As flow cytometry detected, there is a morphologic correlate to the small subset of cells consistent with T-lymphoblasts. In the sampled tissue, these cells are infrequent and occur singly. Their significance is uncertain; however, their presence is atypical and highly concerning for a second underlying malignancy. Consideration for excisional tissue biopsy and/or bone marrow biopsy is advised. KR 05/13/2019 12:40 PM [facility] Clinical History Left inguinal lymphadenopathy. 05/13/2019 12:40 PM [facility] Materials Received Received are 2 slides and 1 block labeled as [id number] along with the outside pathology report. [place] [address]. All materials are returned to the referring institution, along with a copy of our final report. 05/13/2019 12:40 PM [facility] Disclaimer The performance characteristics of all immunohistochemical and indirect immunofluorescence stains (if any) cited in this report were determined by the Histopathology Laboratory of [facility]. Some of these tests were developed by [...] and interpreted by the attending (teaching) pathologist. 05/13/2019 12:40 PM [facility] Embedded Images 05/13/2019 12:40 PM T [facility] Pathology/Cytolo gy BIOPSY OF LYMPH NODE / Unknown 05/10/2019 10:31 AM CDT 05/12/2019 10:31 AM CDT Ubaldo Ugalde MD LAB - PATHOLOGY/CYTO LOGY ORDERABLES [facility] [address] [place], [place] [address] [phone] documented in this encounter Visit Diagnoses Not on filedocumented in this encounter Care Teams News Assignment Editor Relationship Specialty Start Date End Date Macy Aguayo MD [address] [place] [address] DRMaría Elena [address] [place] [address] PCP - General 05/12/19 documented as of this encounter
--- OUTSIDE RECORDS SUMMARY | 2024-11-04 22:47 | XMS_ITS | Clinical Summary ---
Author Organization [facility] Address [address] [place] [address] Care Team Providers Care Class A Lineman Name Role Phone Franco Ohara MD Primary Care Provider [phone] Allergies Active Allergy Reactions Criticality Noted Date Comments Aspirin Rash Low 12/19/2021 Ibuprofen Rash Low 06/02/2019 Mv-Mn-Folic Ac-Vit K-Herb 289 Rash Low 2018 Medications atorvastatin (LIPITOR) 40 mg tablet Take 20 mg by mouth daily with supper. told patient to cut dosage in half. Active OMEPRAZOLE ORAL Take by mouth. Activ e montelukast sodium (MONTELUKAST ORAL) Take by mouth. Activ e FLUTICASONE PROPIONATE BOTH NOSTRIL Administer 50 mcg in each nostril. 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 Dissolve tablet on top of tongue, then swallow with saliva. 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 TAKE ON DAYS 1 THROUGH 5 OF TREATMENT 10 Tablet 10/16/201 9 Active Cranberry 400 mg Capsule Take by mouth. Acti ve multivitamin (MULTIPLE VITAMINS DAILY ORAL) Take by mouth. Activ e nystatin (MYCOSTATIN) 100,000 unit/mL suspension 0 9 Active vitamin B complex (Vitamins B Complex) Capsule Take 1 Tablet by mouth. Active Pierson-3 Fatty Acids 1,250 mg Capsule Take 1,200 mg by mouth. Active lisinopriL (PRINIVIL) 20 mg tablet 1 Active vit B cmplx 3-FA-Vit C-Biotin (RENAVITE-RX RX) 1-60-300 mg-mg-mcg Tablet Take 1 Tablet by mouth daily. Active Fish Oil-Pierson-3 Fatty Acids 360-1,200 mg Capsule Take 1 Capsule by mouth. 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/02/2019 Encounters Date Type Department Care Team Description 11/04/2024 External Device Data STL ABSTRACTION Provider, Abstract 11/03/2024 Orders Only [facility] - [place] [address] [place] [address] Elias Bryan MD from Last 3 Months Family History Medical History Relation Name Comments Heart Disease Father Heart Disease Mother Relation Name Status Comments Father Mother Sister Alive Social History Tobacco Use Types Packs/Day Years Used Date Smoking Tobacco: Never Smokeless Tobacco: Never Tobacco Cessation:Counseling Given: Not Answered Alcohol Use Standard Drinks/Week Comments Yes 0 (1 standard drink = 0.6 oz pur e alcohol) Comments No Sex and Gender Information Value Date Recorded Sex Assigned at Not on file Legal Sex Female 5:04 PM CDT Gender Identity Not on file Sexual Orientation Not on file Last Filed Vital Signs Vital Sign Reading Time Taken Comments Blood Pressure 136/85 03/03/2024 11:15 AM CDT Pulse 90 03/03/2024 11:15 AM CDT Temperature 36.4 ??C (97.6 ??F) 03/03/2024 11:15 AM C DT Respiratory Rate 14 03/03/2024 11:15 AM CDT Oxygen Saturation 97% 03/03/2024 11:15 AM CDT Inhaled Oxygen Concentration - - Weight 89.4 kg (197 lb) 03/03/2024 11:15 AM CDT Height 167.6 cm (5' 6 ) 02/19/2022 9:52 AM CDT Body Mass Index 31.8 02/19/2022 9:52 AM CDT Plan of Treatment Upcoming Encounters Date Type Department Care Team (Late st Contact Info) Description 11/08/2024 11:00 AM PROJECT DEVELOPMENT DIRECTOR Office Visit [facility] - [place] [address] [facility] [address] [place] [address] Elias Bryan MD [address] [facility] [address] [place] [address] Health Maintenance Due Date Last Done Comments DTAP/TDAP/TD VACCINES (1 - Tdap) 1959 Traditional Medicare (ACO) A nnual Wellness Visit 1959 ZOSTER VACCINE (1 of 2) 1961 RSV VACCINE (60+ or ) (1 - 1-dose 75+ series) 2017 PNEUMOCOCCAL VACCINE 65+ YEA RS (2 of 2 - PCV) 06/13/2019 06/13/2018 COVID-19 Vaccine (3 - Modern a risk series) 01/20/2021 12/23/2020, 11/25/2020 INFLUENZA VACCINE (#1) 2024 07/13/2022 OSTEOPOROSIS SCREENING Completed 3, 08/16/2020, 02/10/2018, Additional history exists Procedures Procedure Name Priority Date/Time Associated Diagnosis Comments CT ABDOMEN PELVIS W CONTRAST Routine 11/03/2024 1:58 PM PROJECT DEVELOPMENT DIRECTOR from Last 3 Months Results * CT ABDOMEN PELVIS W CONTRAST (11/03/2024 1:58 PM PROJECT DEVELOPMENT DIRECTOR) Anatomical Region Laterality Modality Abdomen Other us Elias Bryan MD CT ORDERABLES Final Result from Last 3 Months Insurance MEDICARE PART A AND B [facility] MEDICARE PART A AND B Care Teams Class A Lineman Relationship Specialty Start Date End Date Franco Ohara MD PCP - General Family Practice 5/16/23
--- OUTSIDE RECORDS SUMMARY | 2024-11-04 22:47 | XMS_ITS | Encounter Summary ---
Author Organization [facility] Address [address] [facility] [place] [address] Care Team Providers Care Signal Tester Name Role Phone Macy Aguayo MD Primary Care Provider [phone] Encounter Details Date Type Department Care Team (Late st Contact Info) Description 06/11/2019 Lab Requisition [facility] [address] [place] [address] Ubaldo Ugalde MD [address] [place] [address] Social History Tobacco Use Types Packs/Day Years Used Date Smoking Tobacco: Never Assessed Sex and Gender Information Value Date Recorded Sex Assigned at Not on file Gender Identity Not on file Sexual Orientation Not on file documented as of this encounter Plan of Treatment Not on file documented as of this encounter Procedures Procedure Name Priority Date/Time Associated Diagnosis Comments FLOW CYTOMETRY BONE MARROW Routine 06/11/2019 9:21 AM CDT documented in this encounter Results * FLOW CYTOMETRY BONE MARROW (06/11/2019 9:21 AM CDT) Case Report Flow Cytometry ?Case: [id number] ? Authorizing Provider: ??Ubaldo Ugalde MD ?Collected: ? 06/11/2019 09:21 AM ? Ordering Location: ? [facility] ? Received: ?06/11/2019 12:11 PM ? Pathologist: ? Miguel Kaplan MD ? Specimen: ?Bone Marrow ? 06/11/2019 3:49 PM [facility] PATHOLOGY LAB Final Diagnosis Bone marrow, flow cytometric immunophenotypic analysis: - No evidence of non-Hodgkin lymphoma or high-grade myeloid neoplasm. - See interpretation. 06/11/2019 3:49 PM [facility] PATHOLOG[facility] Flow Cytometry Interpretation The bone marrow specimen has a viability of 92%. The lymphocyte, dim CD45, monocyte, and granulocyte smith are normal in relative proportion. Within the lymphocyte gate, there is no monotypic B-cell population identified (kappa: lambda ratio = 1.1:1). There is no aberrant co-expression of CD5 or CD10 on the mature B-cells. There is no expanded T-cell population seen. By CD34, 0.9% of all events analyzed are blasts. A bone marrow aspirate smear prepared from the flow cytometry specimen is reviewed for construction quality control manager purposes. Overall, the bone marrow aspirate specimen shows no evidence of involvement by non-Hodgkin lymphoma or a high-grade myeloid neoplasm. Correlation with clinical findings, concurrent bone marrow core biopsy, and relevant cytogenetic/molecu lar studies is required. 06/11/2019 3:49 PM [facility] PATHOLOG[facility] LAB Flow Cytometry Results Differential Result Comment Flow Cell Count /uL 33,000 Total Viability % 92.0 Lymphocytes % 14 Dim CD45 Region % 2 Monocytes % 6 Granulocytes % 77 06/11/2019 3:49 PM [facility] PATHOLOGY LAB Reason for test LARGE B-CELL LYMPHOMA 06/11/2019 3:49 PM CDT [facility] Client Specimen ID # [id number] 06/11/2019 3:49 PM CDT [facility] PATHOLOG[facility] LAB Number of markers 10 were performed. A-1 Flow CD3 A-3 Flow CD10 A-5 Flow CD20 A-6 Flow CD23 A-2 Flow CD5 A-4 Flow CD19 A-7 Flow CD34 A-8 Flow CD45 A-9 [place]+CD19+ A-10 Lambda+CD19+ 06/11/2019 3:49 PM CDT [facility] Disclaimer Test performed at [facility], [address] [place] [address], [address]. *The established laboratory minimum viability is 70%. Values below the minimum may result in the failure to find an abnormal population of cells. This test was developed and its performance characteristics determined by the Flow Cytometry Laboratory. It has not been cleared by the [place] Food and Drug Administration (FDA). The FDA has determined that such clearance or approval is not necessary. This test is used for clinical purposes. It should not be regarded as investigational or for research. This laboratory is regulated under the Clinical Laboratory Improvement Amendments of 1998 (CLIA) as a qualified to perform high complexity clinical testing. 06/11/2019 3:49 PM CDT [facility] Embedded Images 3:49 PM CDT [facility] PATHOLOG[facility] LAB Pathology/Cytolo gy BONE MARROW SPECIMEN / Unknown 06/11/2019 9:21 AM CDT 06/11/2019 12:11 PM CDT Ubaldo Ugalde MD LAB - PATHOLOGY/CYTO LOGY ORDERABLES [facility] PATHOLOGY LAB [facility]. [address] [phone] documented in this encounter Visit Diagnoses Not on filedocumented in this encounter Care Teams Signal Tester Relationship Specialty Start Date End Date Macy Aguayo MD [address] [place] [address] PCP - General 05/12/19 documented as of this encounter
--- OUTSIDE RECORDS SUMMARY | 2024-11-04 22:47 | XMS_ITS | Patient Health Summary ---
Author Organization [facility] Address [address] [place] [address] Care Team Providers Care Golf Club Weighter Name Role Phone Macy Aguayo MD Primary Care Provider Note from [facility],non-owned Affiliates and Associated Physician Practices is amultiple site organization consisting of ambulatory clinics and hospital sitesin [place], [place], [place] and [place]. This disclosure is being madepursuant to the Care Everywhere program and may not contain all information available regarding this patient. Last updated 18.[facility] Social History Tobacco Use Types Packs/Day Years Used Date Smoking Tobacco: Never Assessed Sex and Gender Information Value Date Recorded Sex Assigned at Not on file Gender Identity Not on file Sexual Orientation Not on file Procedures * FLOW CYTOMETRY BONE MARROW(Performed 06/11/2019) * BONE MARROW BIOPSY (STL)(Performed 06/11/2019) * PATHOLOGY TISSUE(Performed 05/10/2019) Results * FLOW CYTOMETRY BONE MARROW (06/11/2019 9:21 AM CDT) Case Report Flow Cytometry ?Case: [id number] ? Authorizing Provider: ??Ubaldo Ugalde MD ?Collected: ? 06/11/2019 09:21 AM ? Ordering Location: ? [facility] Care Pathology Lab ? Received: ?06/11/2019 12:11 PM ? Pathologist: ? Miguel Kaplan MD ? Specimen: ?Bone Marrow ? [facility]/11/2019 3:49 PM [facility] Final Diagnosis Bone marrow, flow cytometric immunophenotypic analysis: - No evidence of non-Hodgkin lymphoma or high-grade myeloid neoplasm. - See interpretation. 06/11/2019 3:49 PM [facility] PATHOLOG[facility] LAB Flow Cytometry Interpretation The bone marrow specimen has a viability of 92%. The lymphocyte, dim CD45, monocyte, and granulocyte msith are normal in relative proportion. Within the [...] the flow cytometry specimen is reviewed for fuel quality tech purposes. Overall, the bone marrow aspirate specimen shows no evidence of involvement by non-Hodgkin lymphoma or a high-grade myeloid neoplasm. Correlation with clinical findings, concurrent bone marrow core biopsy, and relevant cytogenetic/molecu lar studies is required. 06/11/2019 3:49 PM [facility] PATHOLOG[facility] LAB Flow Cytometry Results Differential Result Comment Flow Cell Count /uL 33,000 Total Viability % 92.0 Lymphocytes % 14 Dim CD45 Region % 2 Monocytes % 6 Granulocytes % 77 06/11[facility]2019 3[facility] Reason for test LARGE B-CELL LYMPHOMA 06/11/2019 3:49 PM CDT [facility] Client Specimen ID # [id number] 06/11/2019 3:49 PM CDT [facility] PATHOLOGY LAB Number of markers 10 were performed. A-1 Flow CD3 A-3 Flow CD10 A-5 Flow CD20 A-6 Flow CD23 A-2 Flow CD5 A-4 Flow CD19 A-7 Flow CD34 A-8 Flow CD45 A-9 [place]+CD19+ A-10 Lambda+CD19+ 06/11/2019 3:49 PM CDT [facility] PATHOLOGY LAB Disclaimer Test performed at [facility], [address] [place] [address], [address]. *The established laboratory minimum viability is 70%. [...] complexity clinical testing. 06/11/2019 3:49 PM CDT [facility] PATHOLOGY LAB Embedded Images 3:49 PM CDT [facility] PATHOLOGY LAB Pathology/Cytolo gy BONE MARROW SPECIMEN / Unknown 06/11/2019 9:21 AM CDT 06/11/2019 12:11 PM CDT Ubaldo Ugalde MD LAB - PATHOLOGY/CYTO LOGY ORDERABLES Performing Organization Address City/State/[facility] Co de Phone Number [facility] PATHOLOGY LAB [address] [place] [address]. [address] [phone] * BONE MARROW BIOPSY (STL) (06/11/2019 8:19 AM CDT) Case Report Bone Marrow Patholog y Report ?Case: [id number] ? Authorizing Provider: ??Ubaldo Ugalde MD ?Collected: ? 06/11/2019 08:19 AM ? Ordering Location: ? [facility] Care Pathology Lab ? Received: ?06/16/2019 01:06 PM ? Pathologist: ? Sheree Elise MD ? Specimens: ?? A) - Bone Marrow Core, [id number] ? B) - Bone Marrow Clot, [id number] ? C) - Blood Peripheral, [id number] ? D) - Bone Marrow Aspirate, [id number] ? 06/17/2019 11:21 AM CDT [facility] Final Diagnosis Bone marrow, aspirate, clot section, and core biopsy: - Normocellular marrow with maturing trilineage hematopoiesis. - No evidence of lymphoma or high-grade myeloid neoplasm. - See comment. Peripheral blood smear: - Normal white blood cell count. - See comment. 06/17/2019 11:21 AM [facility] PATHOLOG[facility] LAB Comment Overall, the bone marrow specimen is normocellular for age with maturing trilineage hematopoiesis and no evidence of lymphoma, a high-grade myeloid neoplasm, or significant dyspoiesis. Concurrent bone marrow flow cytometry ([id number]) demonstrates no evidence of non-Hodgkin lymphoma or a high-grade myeloid neoplasm. Correlation with clinical findings and relevant cytogenetic/molecular testing is required. AQ/SEKOU 06/17/2019 11:21 AM [facility] PATHOLOG[facility] LAB Peripheral Smear Description Manual Differential Count (100 cells): 69% neutrophils, 23% lymphocytes, 3% monocytes, 1% eosinophils, and 4% bands. / 100 WBCs. Leukocyte number: normal. Granulocyte morphology: normal. Lymphocyte morphology: normal. Erythrocyte number: normal. Erythrocyte morphology: normocytic. Anisopoikilocytosis: not signifcant. Polychromasia: not significant. Platelet number: normal. Platelet morphology: normal. 06/17/2019 11:21 AM [facility] PATH[facility] LAB Bone Marrow Aspirate Differential count [...] stain): no ring sideroblasts. 06/17/2019 11:21 AM [facility] PATHOLOG[facility] LAB Bone Marrow Core Biopsy and [...] shows adequate storage iron Immunohistochemical staining at [facility] pathology with appropriate controls are as follows: CD3 and CD20 highlight small lymphoid aggregates composed of mixture of T and B lymphocytes , inconclusive for involvement by lymphoma. 06/17/2019 11:21 AM [facility] PATHOLOGY LAB Clinical History 06/17/2019 11:21 AM [facility] PATH[facility] Materials Received Received are 17 slides and 3 blocks labeled as [id number] along with the outside pathology report. [place] [address]. All materials are returned to the referring institution, along with a copy of our final report. 06/17/2019 11:21 AM [facility] PATHOLOG[facility] LAB Disclaimer The performance characteristics of all immunohistochemical and indirect immunofluorescence stains (if any) cited in this report were determined by the Histopathology Laboratory of [facility]. Some of these tests were developed [...] the attending (teaching) pathologist. 06/17/2019 11:21 AM [facility] PATHOLOG[facility] LAB Embedded Images 06/17/2019 11:21 AM [facility] PATHOLOG[facility] LAB Pathology/Cytology SPECIMEN FROM BONE [...] Ugalde MD LAB - PATHOLOGY/CYTO LOGY ORDERABLES [facility] PATHOLOGY LAB [address] [address], [facility] [phone] * PATHOLOGY TISSUE (05/10/2019 10:31 AM CDT) Case Report Surgical Pathology Report ? Case: [id number] ? Authorizing Provider: ??Ubaldo Ugalde MD ?Collected: ? 05/10/2019 10:31 AM ? Pathologist: ? Roxanna Mason MD ?? Received: ?05/12/2019 10:31 AM ? Specimen: ?Lymph Node Biopsy, [id number] ? 05/13/2019 12:40 PM CDT [facility] PATHOLOGY LAB Final Diagnosis Lymph node, left groin, needle core biopsy: - Diffuse large B-cell lymphoma. - Small T-lymphoblast population identified. - See description. 05/13/2019 12:40 PM CDT [facility] PATHOLOGY LAB Microscopic Description and Comment Review of the tissue demonstrates thin cores of lymphoid tissue. The cells are large in size, pleomorphic, and have a diffuse infiltration pattern. No necrosis is identified. Immunohistochemistry is performed on the tissue in the [facility] Department of Pathology to further characterize this [...] cores of the tissue. Concurrent flow cytometry ([facility], [id number]) describes two cell populations. The first population, comprising 29% of the sample, is a QQ49-jmnoghes monoclonal B-cell population. The second population, estimated [...] biopsy is advised. KR 05/13/2019 12:40 PM [facility] PATH[facility] Clinical History Left inguinal lymphadenopathy. 05/13/2019 12:40 PM [facility] PATH[facility] Materials Received Received are 2 slides and 1 block labeled as [id number] along with the outside pathology report. [place] [address]. All materials are returned to the referring institution, along with a copy of our final report. 05/13/2019 12:40 PM [facility] PATHOLOG[facility] LAB Disclaimer The performance characteristics of all immunohistochemical and indirect immunofluorescence stains (if any) cited in this report were determined by the Histopathology Laboratory of [facility]. Some of these tests were developed [...] the attending (teaching) pathologist. 05/13/2019 12:40 PM CDT [facility] PATHOLOGY LAB Embedded Images 05/13/2019 12:40 PM CDT [facility] PATHOLOGY LAB Pathology/Cytolo gy BIOPSY OF LYMPH NODE / Unknown 05/10/2019 10:31 AM CDT 05/12/2019 10:31 AM CDT Ubaldo Ugalde MD LAB - PATHOLOGY/CYTO LOGY ORDERABLES [facility] PATHOLOGY LAB [address] [phone] Care Teams Golf Club Weighter Relationship Specialty Start Date End Date Macy Aguayo MD [facility] [place] [address] PCP - General 05/12/19
== END 2024-11-03 09:44 | disposition home or self-care (01) ==
PROVIDERS: PCP Family Medicine; Visit Provider Internal Medicine Hematology & Oncology
DX: C83.35 Diffuse large B-cell lymphoma, 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 (principal)
CPT/HCPCS: 74177; Q9967

== ENCOUNTER 2024-11-03 10:43 | Outpatient (CLI) | payer MEDICARE, SELFPAY ==
[2024-11-03 11:06] LABS: Basophils Percent Auto 0.7 % (0.2-1.2); Eosinophils Absolute Auto 0.3 K/mm3 (0-0.3); Eosinophils Percent Auto 5.1 % (0-4.4); Hematocrit 39.9 % (37.0-47.0); Hemoglobin 12.9 g/dL (12.0-15.0); Immature Granulocyte Absolute 0.01 K/mm3 (0.00-0.031); Immature Granulocyte Percent A 0.2 % (0-0.5); Lymphocytes Absolute Auto 2.06 K/mm3 (0.9-3.2); Lymphocytes Percent Auto 37.3 % (18.3-44.2); Mean Corpuscular HGB Conc 32.3 g/dl (32-36); Mean Corpuscular Hemoglobin 28.9 pg (26-34); Mean Corpuscular Volume 89.5 fl (80-100); Mean Platelet Volume 8.5 fl (7.4-10.4); Monocytes Absolute Auto 0.5 K/mm3 (0.1-0.6); Monocytes Percent Auto 8.2 % (2.6-8.5); Neutrophils Absolute Auto 2.7 K/mm3 (1.3-6.7); Neutrophils Percent Auto 48.5 % (45.5-73.1); Platelet Count Result 286 k/mm3 (150-375); Red Blood Count 4.46 M/mm3 (4.2-5.4); Red Cell Distribution Width 13.2 % (11.5-14.5); White Blood Count 5.5 K/mm3 (4.5-10.0)
[2024-11-03 11:32] LABS: Alanine Aminotransferase 24 U/L (6-35); Albumin Level 4.4 g/dL (3.5-5.1); Alkaline Phosphatase 83 U/L (38-126); Anion Gap 11 mmol/L (4-12); Aspartate Amino Transferase 39 U/L (14-36); Bilirubin,Total 0.6 mg/dL (0.2-1.3); Blood Urea Nitrogen 14 mg/dL (7-17); Calcium 9.8 mg/dL (8.4-10.2); Carbon Dioxide 27 mmol/L (22-30); Chloride 102 mmol/L (98-107); Estimated Glomerular Filt Rate > 60; Glucose 86 mg/dL (65-110); Potassium 4.3 mmol/L (3.4-5.0); Sodium 140 mmol/L (137-145)
--- OUTSIDE RECORDS SUMMARY | 2024-11-04 23:25 | XMS_ITS | Clinical Summary ---
Author Organization [facility] Address [address] [place] [address] Care Team Providers Care Franchise Sales Director Name Role Phone Macy Aguayo MD Primary Care Provider [phone] Source Comments [facility],non-owned Affiliates and Associated Physician Practices is amultiple site organization consisting of ambulatory clinics and hospital sitesin [place], [place] and [place]. This disclosure is being madepursuant to the Care Everywhere program and may not contain all information available regarding this patient. Last updated 18.[facility] Social History Tobacco Use Types Packs/Day Years [...] age to complete this topic Care Teams Franchise Sales Director Relationship Specialty Start Date End Date Macy Aguayo MD [address] [place] [address] PCP - General 05/12/19
--- OUTSIDE RECORDS SUMMARY | 2024-11-04 23:25 | XMS_ITS | Referral Summary ---
Author Organization [facility] Address [address] [place] [place] [address] Care Team Providers Care Photostat Operator Helper Name Role Phone Macy Aguayo MD Primary Care Provider [phone] Source Comments [facility],non-owned Affiliates and Associated Physician Practices is amultiple site organization consisting of ambulatory clinics and hospital sitesin [place], [place], [place] and [place]. This disclosure is being madepursuant to the Care Everywhere program and may not contain all information available regarding this patient. Last updated 18.[facility] [employer] Social History Tobacco Use Types Packs/Day Years Used Date Smoking Tobacco: Never Assessed Sex and Gender Information Value Date Recorded Sex Assigned at Not on file Gender Identity Not on file Sexual Orientation Not on file Plan of Treatment Not on file Care Teams Photostat Operator Helper Relationship Specialty Start Date End Date Macy Aguayo MD [address] [place] [address] [address] [place] [phone] PCP - General 05/12/19
--- OUTSIDE RECORDS SUMMARY | 2024-11-04 23:26 | XMS_ITS | Clinical Summary ---
Author Organization [facility] Address [address] [address] Phone Care Team Providers Care Camera Person Name Role Phone Macy Aguayo MD Unavailable [phone] Madhu Flaherty DO Unavailable [phone] Macy Aguayo MD Primary Care Provider [phone] Allergies Active Allergy Reactions Criticality Noted Date [...] (MULTIVITAMIN PO) Take by mouth daily. Active Sherwood-3 Fatty Acids (FISH OIL) 1200 MG Capsule Take 1,200 mg by mouth daily. Active Magnesium 500 MG TabletIndicatio ns:take 3 times a week Take 1 Tab by mouth. Active Selenium 100 MCG Capsule Take 1 Cap by mouth daily. Active Acetylcysteine (E-ENJVEI-W-CYS TEINE PO) Take 300 mg by mouth [...] age to complete this topic Insurance MEDICARE [facility] Care Teams Camera Person Relationship Specialty Start Date End Date Macy Aguayo MD [address] [place] [address] [place] [address] PCP - General Chemicals Distiller 03/06/17 Macy Aguayo MD [address] [place] [address] [place] [address] Chemicals Distiller 11/05/16 Madhu Flaherty DO [address] [place] [address] [place] [address] Consulting Physician Gastroenterology 03/06/17
--- OUTSIDE RECORDS SUMMARY | 2024-11-04 23:26 | XMS_ITS | Encounter Summary ---
Author Organization [facility] Address [address] [place] [address] Care Team Providers Care Sort Line Name Role Phone Macy Aguayo MD Primary Care Provider Encounter Details Date Type Department Care Team (Late st Contact Info) Description 05/12/2019 Lab Requisition [facility] Care Pathology Lab [address] [place] [address] Ubaldo Ugalde MD [address] [place] [address] Social History Tobacco Use Types [...] Case Report Surgical Pathology Report ? Case: [id number] ? Authorizing Provider: ??Ubaldo Ugalde MD ?Collected: ? 05/10/2019 10:31 AM ? Pathologist: ? Roxanna Mason MD ?? Received: ?05/12/2019 10:31 AM ? Specimen: ?Lymph Node Biopsy, [id number] ? 05/13/2019 12:40 PM [facility] PATHOLOGY [facility] Final Diagnosis Lymph node, left groin, needle core biopsy: - Diffuse large B-cell lymphoma. - Small T-lymphoblast population identified. - See description. 05/13/2019 12:40 PM [facility] Microscopic Description and Comment Review of the tissue demonstrates thin cores of lymphoid tissue. The cells are large in size, pleomorphic, and have a diffuse infiltration pattern. No necrosis is identified. Immunohistochemistry is performed on the tissue in the [facility] Department of Pathology to further characterize this [...] the tissue. Concurrent flow cytometry ([employer], [id number]) describes two cell populations. The first population, comprising 29% of the sample, is a JJ42-mzanvocp monoclonal B-cell population. The second population, estimated [...] biopsy is advised. KR 05/13/2019 12:40 PM [facility] Clinical History Left inguinal lymphadenopathy. 05/13/2019 12:40 PM [facility] Materials Received Received are 2 slides and 1 block labeled as [id number] along with the outside pathology report. [place] [address]. All materials are returned to the referring institution, along with a copy of our final report. 05/13/2019 12:40 PM [facility] Disclaimer The performance characteristics of all immunohistochemical and indirect immunofluorescence stains (if any) cited in this report were determined by the [facility]. Some of these tests were developed by [...] the attending (teaching) pathologist. 05/13/2019 12:40 PM [facility] Embedded Images 05/13/2019 12:40 PM T [facility] PATHOLOGY LAB Pathology/Cytolo gy BIOPSY OF LYMPH NODE / Unknown 05/10/2019 10:31 AM CDT 05/12/2019 10:31 AM CDT Ubaldo Ugalde MD LAB - PATHOLOGY/CYTO LOGY ORDERABLES [facility] PATHOLOGY LAB [address] [place], [place] [address] [phone] documented in this encounter Visit Diagnoses Not on filedocumented in this encounter Care Teams Sort Line Relationship Specialty Start Date End Date Macy Aguayo MD [address] [place] [address] [address] [place] [id number] PCP - General 05/12/19 documented as of this encounter
--- OUTSIDE RECORDS SUMMARY | 2024-11-04 23:26 | XMS_ITS | Continuity of Care Document ---
Author Organization [facility] Address [address] [place] [address] Phone Care Team Providers Care Motion Picture Cameraman Name Role Phone Earnest Fortune MD Unavailable [...] Office/outpa tient visit,est, low [facility], [address] [place], [place] [address], [id number], tel:[phone] [facility] Left shoulder (chief complaint) Presence of left artificial shoulder joint 3 [place]. [address] [place] [address], [facility] [address], [place], [place], [id number] , . tel:[phone] Referring Provider: Earnest Lakhani, [address] [place] [address] [address], [place], [address] . tel:[phone] Office/outpa tient visit,est, [facility], [address] [address], [place], [place], [id number], [place] tel:[phone] [facility] New Shoulder (chief complaint) Pain in right shoulderPresence of left artificial shoulder jointPrimary osteoarthritis, right shoulder 2 [place]. [address] [facility] [address], [place], [place], [id number] , [place]. tel:[phone] Referring Provider: Earnest Lakhani, [address] [facility] [address] [facility], [place], [address] . tel:[phone] [facility], [facility] [address], [place], [place], [id number], [place] tel:[phone] [facility] Left shoulder (chief complaint) Presence of left artificial shoulder joint 2 [place]. [address] [facility], [address] [address], [place], [place], [id number] , [place]. tel:[phone] Referring Provider: Earnest Lakhani, [address] [facility] [address] [facility], [place], [address] . tel:[phone] Office/outpa tient visit,new, [facility], [address] [address], [place], [place], [id number], [place] [phone] [facility] Left Shoulder Pain Pain In Rt Shoulder Also (chief complaint) Primary osteoarthritis, left shoulder 2 [place]. [address] [facility], [facility] [address], [place], [place], [id number] , [place]. tel:[phone] Referring Provider: Earnest Lakhani, [address] [address], [place], [address] . tel:[phone] Family History Family Member Type Diagnosis Age [...] tion(s) Medicare [place] Part B MB [id number] Annia [employer] Marc wayne [facility] [id number] Social History Type Description Quantity Date Captured [...]
--- OUTSIDE RECORDS SUMMARY | 2024-11-04 23:26 | XMS_ITS | Encounter Summary ---
Author Organization [facility] Address [address] [facility] [place] [address] Care Team Providers Care Stiff Straw Hat Washer Name Role Phone Macy Aguayo MD Primary Care Provider [phone] Encounter Details Date Type Department Care Team (Late st Contact Info) Description 06/11/2019 Lab Requisition [facility] Care Pathology Lab [address] [place] [address] Ubaldo Ugalde MD [address] [place] [address] Social History Tobacco Use Types [...] AM CDT) Case Report Flow Cytometry ?Case: [id number] ? Authorizing Provider: ??Ubaldo Uglade MD ?Collected: ? 06/11/2019 09:21 AM ? Ordering Location: ? [facility] ? Received: ?06/11/2019 12:11 PM ? Pathologist: ? Miguel Kaplan MD ? Specimen: ?Bone Marrow ? 06/11/2019 3:49 PM [facility] PATH[facility] Final Diagnosis Bone marrow, flow cytometric immunophenotypic analysis: - No evidence of non-Hodgkin lymphoma or high-grade myeloid neoplasm. - See interpretation. 06/11/2019 3:49 PM [facility] PATHOLOG[facility] Flow Cytometry Interpretation [...] the flow cytometry specimen is reviewed for chief vendor quality purposes. Overall, the bone marrow aspirate specimen shows no evidence of involvement by non-Hodgkin lymphoma or a high-grade myeloid neoplasm. Correlation with clinical findings, concurrent bone marrow core biopsy, and relevant cytogenetic/molecu lar studies is required. 06/11/2019 3:49 PM [facility] PATH[facility] Flow Cytometry Results Differential Result Comment Flow Cell Count /uL 33,000 Total Viability % 92.0 Lymphocytes % 14 Dim CD45 Region % 2 Monocytes % 6 Granulocytes % 77 06/11/2019 3:49 PM [facility] PATHOLOGY LAB Reason for test LARGE B-CELL LYMPHOMA 06/11/2019 3:49 PM CDT [facility] Client Specimen ID # [id number] 06/11/2019 3:49 PM CDT [facility] PATH[facility] Number of markers 10 were performed. A-1 Flow CD3 A-3 Flow CD10 A-5 Flow CD20 A-6 Flow CD23 A-2 Flow CD5 A-4 Flow CD19 A-7 Flow CD34 A-8 Flow CD45 A-9 [place]+CD19+ A-10 Lambda+CD19+ 06/11/2019 3:49 PM CDT [facility] Disclaimer Test performed at [facility], [address] [place] [address], [address]. *The established laboratory minimum viability is 70%. [...] PATHOLOGY LAB Embedded Images 3:49 PM CDT [facility] PATHOLOGY LAB Pathology/Cytolo gy BONE MARROW SPECIMEN / Unknown 06/11/2019 9:21 AM CDT 06/11/2019 12:11 PM CDT Ubaldo Ugalde MD LAB - PATHOLOGY/CYTO LOGY ORDERABLES [facility] PATHOLOG[facility]. [address] [phone] documented in this encounter Visit Diagnoses Not on filedocumented in this encounter Care Teams Stiff Straw Hat Washer Relationship Specialty Start Date End Date Macy Aguayo MD [address] [place] [address] PCP - General 05/12/19 documented as of this encounter
--- OUTSIDE RECORDS SUMMARY | 2024-11-04 23:26 | XMS_ITS | Clinical Summary ---
Author Organization [facility] Address [address] [place] [address] Care Team Providers Care Commercial Artist Name Role Phone Franco Ohara MD Primary Care Provider [phone] Allergies Active Allergy Reactions Criticality Noted Date [...] Capsule Take 1 Tablet by mouth. Active Clear Spring-3 Fatty Acids 1,250 mg Capsule Take 1,200 mg by mouth. Active lisinopriL (PRINIVIL) 20 mg tablet 1 Active vit B cmplx 3-FA-Vit C-Biotin (RENAVITE-RX RX) 1-60-300 mg-mg-mcg Tablet Take 1 Tablet by mouth daily. Active Fish Oil-Clear Spring-3 Fatty Acids 360-1,200 mg Capsule Take 1 Capsule by mouth. 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/02/2019 Encounters Date Type Department Care Team Description 11/04/2024 External Device Data STL ABSTRACTION Provider, Abstract 11/03/2024 Orders Only [facility] Oncology and Hematology - [place] [address] [place] [address] Elias Bryan MD from Last [...] st Contact Info) Description 11/08/2024 11:00 AM LAWN CARETAKER Office Visit [facility] Oncology and Hematology - [place] [address] [facility] [address] [place] [address] Elias Bryan MD [address] [place] [address] Health Maintenance Due Date Last [...] PELVIS W CONTRAST Routine 11/03/2024 1:58 PM LAWN CARETAKER from Last 3 Months Results * CT ABDOMEN PELVIS W CONTRAST (11/03/2024 1:58 PM LAWN CARETAKER) Anatomical Region Laterality Modality Abdomen Other us Elias Bryan MD CT ORDERABLES Final Result from Last 3 Months Insurance MEDICARE PART A AND B [facility] SUPP [facility] SUPP MEDICARE PART A AND B Care Teams Commercial Artist Relationship Specialty Start Date End Date Franco Ohara MD PCP - General Family Practice 5/16/23
--- OUTSIDE RECORDS SUMMARY | 2024-11-04 23:26 | XMS_ITS | Encounter Summary ---
Author Organization [facility] Address [address] [facility] [place] [address] Care Team Providers Care Chemical Equipment Sales Engineer Name Role Phone Macy Aguayo MD Primary Care Provider [phone] Encounter Details Date Type Department Care Team (Late st Contact Info) Description 06/16/2019 Lab Requisition [facility] [address] [place] [address] Ubaldo Ugaled MD [address] [place] [address] Social History Tobacco Use Types [...] Report Bone Marrow Patholog y Report ?Case: [id number] ? Authorizing Provider: ??Ubaldo Ugalde MD ?Collected: ? 06/11/2019 08:19 AM ? Ordering Location: ? [facility] ? Received: ?06/16/2019 01:06 PM ? Pathologist: ? Sheree Elise MD ? Specimens: ?? A) - Bone Marrow Core, [id number] ? B) - Bone Marrow Clot, [id number] ? C) - Blood Peripheral, [id number] ? D) - Bone Marrow Aspirate, [id number] ? 06/17/2019 11:21 AM [facility] PATH[facility] Final Diagnosis Bone marrow, aspirate, clot section, and core biopsy: - Normocellular marrow with maturing trilineage hematopoiesis. - No evidence of lymphoma or high-grade myeloid neoplasm. - See comment. Peripheral blood smear: - Normal white blood cell count. - See comment. 06/17/2019 11:21 AM [facility] Comment Overall, the bone marrow specimen is normocellular for age with maturing trilineage hematopoiesis and no evidence of lymphoma, a high-grade myeloid neoplasm, or significant dyspoiesis. Concurrent bone marrow flow cytometry ([id number]) demonstrates no evidence of non-Hodgkin lymphoma or a high-grade myeloid neoplasm. Correlation with clinical findings and relevant cytogenetic/molecular testing is required. AQ/SEKOU 06/17/2019 11:21 AM [facility] Peripheral Smear Description Manual Differential Count (100 cells): 69% neutrophils, 23% lymphocytes, 3% monocytes, 1% eosinophils, and 4% bands. / 100 WBCs. Leukocyte number: normal. Granulocyte morphology: normal. Lymphocyte morphology: normal. Erythrocyte number: normal. Erythrocyte morphology: normocytic. Anisopoikilocytosis: not signifcant. Polychromasia: not significant. Platelet number: normal. Platelet morphology: normal. 06/17/2019 11:21 AM [facility] Bone Marrow Aspirate [...] stain): no ring sideroblasts. 06/17/2019 11:21 AM [facility] Bone Marrow Core [...] shows adequate storage iron Immunohistochemical staining at [facility] pathology with appropriate controls are as follows: CD3 and CD20 highlight small lymphoid aggregates composed of mixture of T and B lymphocytes , inconclusive for involvement by lymphoma. 06/17/2019 11:21 AM [facility] PATH[facility] Clinical History 06/17/2019 11:21 AM T [facility] PATHOLOGY LAB Materials Received Received are 17 slides and 3 blocks labeled as [id number] along with the outside pathology report. The materials originate from [place] [id number]. All materials are returned to the referring institution, along with a copy of our final report. 06/17/2019 11:21 AM T [facility] PATHOLOGY [facility] Disclaimer The performance characteristics of all immunohistochemical and indirect immunofluorescence stains (if any) cited in this report were determined by the Histopathology Laboratory of [facility]. Some of these tests were developed by [...] attending (teaching) pathologist. 06/17/2019 11:21 AM T [facility] PATHOLOG[facility] LAB Embedded Images 06/17/2019 11:21 AM CDT [facility] PATHOLOG[facility] Pathology/Cytology SPECIMEN FROM BONE MARROW [...] Ugalde MD LAB - PATHOLOGY/CYTO LOGY ORDERABLES [facility] PATHOLOG[facility] [address] [phone] documented in this encounter Visit Diagnoses Not on filedocumented in this encounter Care Teams Chemical Equipment Sales Engineer Relationship Specialty Start Date End Date Macy Aguayo MD [address] [place] [address] PCP - General 05/12/19 documented as of this encounter
--- OUTSIDE RECORDS SUMMARY | 2024-11-04 23:26 | XMS_ITS | Encounter Summary ---
Author Organization [facility] Address [address] [place] [address] Care Team Providers Care Md Psychiatry Name Role Phone Franco Ohara MD Primary Care Provider [phone] Encounter Details Date Type Department Care Team (Late Contact Info) Description 07/15/2019 Chart Note [facility] Radiation Therapy [address] [place] [address] [place] [address] [place] [address] Social History Tobacco Use Types [...] (Late Contact Info) Description 11/08/2024 11:00 AM PILOT PLANT OPERATOR Office Visit [facility] Oncology and Hematology - [place] [address] [facility] [address] [place] [address] Elias Bryan MD [address] [place] [address] documented as of this encounter Visit Diagnoses Not on filedocumented in this encounter Care Teams Md Psychiatry Relationship Specialty Start Date End Date Franco Ohara MD PCP - General Family Practice 02/25/23 documented as of this encounter
--- OUTSIDE RECORDS SUMMARY | 2024-11-04 23:26 | XMS_ITS | Patient Health Summary ---
Author Organization [facility] Address [address] [facility] [place] [address] Care Team Providers Care Division Superintendent Name Role Phone Macy Aguayo MD Primary Care Provider Note from [facility] [place],non-owned Affiliates and Associated Physician Practices is amultiple site organization consisting of ambulatory clinics and hospital sitesin [place], [place], [place] and [place]. This disclosure is being madepursuant to the Care Everywhere program and may not contain all information available regarding this patient. Last updated 18.[facility] Social History Tobacco Use Types Packs/Day Years [...] AM CDT) Case Report Flow Cytometry ?Case: [id number] ? Authorizing Provider: ??Ubaldo Ugalde MD ?Collected: ? 06/11/2019 09:21 AM ? Ordering Location: ? [facility] Care Pathology Lab ? Received: ?06/11/2019 12:11 PM ? Pathologist: ? Miguel Kaplan MD ? Specimen: ?Bone Marrow ? 06/11/2019 3:49 PM [facility] Final Diagnosis Bone marrow, flow cytometric immunophenotypic analysis: - No evidence of non-Hodgkin lymphoma or high-grade myeloid neoplasm. - See interpretation. 06/11/2019 3:49 PM [facility] Flow Cytometry Interpretation The bone [...] the flow cytometry specimen is reviewed for personnel quality assurance auditor purposes. Overall, the bone marrow aspirate specimen shows no evidence of involvement by non-Hodgkin lymphoma or a high-grade myeloid neoplasm. Correlation with clinical findings, concurrent bone marrow core biopsy, and relevant cytogenetic/molecu lar studies is required. 06/11/2019 3:49 PM [facility] PATH[facility] Flow Cytometry Results Differential Result Comment Flow Cell Count /uL 33,000 Total Viability % 92.0 Lymphocytes % 14 Dim CD45 Region % 2 Monocytes % 6 Granulocytes % 77 06/[facility]2019 3[facility] Reason for test LARGE B-CELL LYMPHOMA 06/11/2019 3:49 PM CDT [facility] Client Specimen ID # [id number] 06/11/2019 3:49 PM CDT [facility] PATH[facility] Number of markers 10 were performed. A-1 Flow CD3 A-3 Flow CD10 A-5 Flow CD20 A-6 Flow CD23 A-2 Flow CD5 A-4 Flow CD19 A-7 Flow CD34 A-8 Flow CD45 A-9 Byng+CD19+ A-10 Lambda+CD19+ 06/11/2019 3:49 PM CDT [facility] PATHOLOGY LAB Disclaimer Test performed at [facility], [address] [place] [address], [address]. *The established laboratory minimum viability is 70%. [...] complexity clinical testing. 06/11/2019 3:49 PM CDT [facility] PATHOLOGY LAB Embedded Images 3:49 PM CDT [facility] PATH[facility] Pathology/Cytolo gy BONE MARROW SPECIMEN / Unknown 06/11/2019 9:21 AM CDT 06/11/2019 12:11 PM CDT Ubaldo Ugalde MD LAB - PATHOLOGY/CYTO LOGY ORDERABLES Performing Organization Address City/State/[facility] Co de Phone Number [facility] PATHOLOGY LAB [address] [place] [address]. [address] [phone] * BONE MARROW BIOPSY (STL) (06/11/2019 8:19 AM CDT) Case Report Bone Marrow Patholog y Report ?Case: [id number] ? Authorizing Provider: ??Ubaldo Ugalde MD ?Collected: ? 06/11/2019 08:19 AM ? Ordering Location: ? [facility] Care Pathology Lab ? Received: ?06/16/2019 [...] count. - See comment. 06/17/2019 11:21 AM [facility] Comment Overall, the bone marrow specimen is normocellular for age with maturing trilineage hematopoiesis and no evidence of lymphoma, a high-grade myeloid neoplasm, or significant dyspoiesis. Concurrent bone marrow flow cytometry ([id number]) demonstrates no evidence of non-Hodgkin lymphoma or a high-grade myeloid neoplasm. Correlation with clinical findings and relevant cytogenetic/molecular testing is required. AQ/SEKOU 06/17/2019 11:21 AM [facility] Peripheral Smear Description Manual Differential Count (100 cells): 69% neutrophils, 23% lymphocytes, 3% monocytes, 1% eosinophils, and 4% bands. / 100 WBCs. Leukocyte number: normal. Granulocyte morphology: normal. Lymphocyte morphology: normal. Erythrocyte number: normal. Erythrocyte morphology: normocytic. Anisopoikilocytosis: not signifcant. Polychromasia: not significant. Platelet number: normal. Platelet morphology: normal. 06/17/2019 11:21 AM [facility] Bone Marrow Aspirate Differential [...] stain): no ring sideroblasts. 06/17/2019 11:21 AM [facility] Bone Marrow Core Biopsy [...] shows adequate storage iron Immunohistochemical staining at [facility] pathology with appropriate controls are as follows: CD3 and CD20 highlight small lymphoid aggregates composed of mixture of T and B lymphocytes , inconclusive for involvement by lymphoma. 06/17/2019 11:21 AM [facility] PATH[facility] Clinical History 06/17/2019 11:21 AM [facility] PATH[facility] Materials Received Received are 17 slides and 3 blocks labeled as [id number] along with the outside pathology report. [place] [address]. All materials are returned to the referring institution, along with a copy of our final report. 06/17/2019 11:21 AM [facility] Disclaimer The performance characteristics of all immunohistochemical and indirect immunofluorescence stains (if any) cited in this report were determined by the Histopathology Laboratory of [facility]. Some of these tests were developed [...] the attending (teaching) pathologist. 06/17/2019 11:21 AM [facility] Embedded Images 06/17/2019 11:21 AM [facility] Pathology/Cytology SPECIMEN FROM BONE [...] Ugalde MD LAB - PATHOLOGY/CYTO LOGY ORDERABLES [facility] PATHOLOG[facility] LAB [place] [address], [facility] [phone] * PATHOLOGY TISSUE (05/10/2019 10:31 AM CDT) Case Report Surgical Pathology Report ? Case: [id number] ? Authorizing Provider: ??Ubaldo Ugalde MD ?Collected: ? 05/10/2019 10:31 AM ? Pathologist: ? Roxanna Mason MD ?? Received: ?05/12/2019 10:31 AM ? Specimen: ?Lymph Node Biopsy, [id number] ? 05/13/2019 12:40 PM CDT [facility] PATH[facility] Final Diagnosis Lymph node, left groin, needle core biopsy: - Diffuse large B-cell lymphoma. - Small T-lymphoblast population identified. - See description. 05/13/2019 12:40 PM CDT [facility] PATHOLOG[facility] Microscopic Description and Comment Review of the tissue demonstrates thin cores of lymphoid tissue. The cells are large in size, pleomorphic, and have a diffuse infiltration pattern. No necrosis is identified. Immunohistochemistry is performed on the tissue in the [facility] Department of Pathology to further characterize this [...] cores of the tissue. Concurrent flow cytometry ([facility] Oncology, [id number]) describes two cell populations. The first population, comprising 29% of the sample, is a [id number] monoclonal B-cell population. The second population, estimated [...] biopsy is advised. KR 05/13/2019 12:40 PM [facility] Clinical History Left inguinal lymphadenopathy. 05/13/2019 12:40 PM [facility] Materials Received Received are 2 slides and 1 block labeled as [id number] along with the outside pathology report. [place] [address]. All materials are returned to the referring institution, along with a copy of our final report. 05/13/2019 12:40 PM [facility] Disclaimer The performance characteristics of all immunohistochemical and indirect immunofluorescence stains (if any) cited in this report were determined by the Histopathology Laboratory of [facility]. Some of these tests were developed [...] attending (teaching) pathologist. 05/13/2019 12:40 PM CDT [facility] PATHOLOG[facility] Embedded Images 05/13/2019 12:40 PM CDT [facility] PATH[facility] Pathology/Cytolo gy BIOPSY OF LYMPH NODE / Unknown 05/10/2019 10:31 AM CDT 05/12/2019 10:31 AM CDT Ubaldo Ugalde MD LAB - PATHOLOGY/CYTO LOGY ORDERABLES [facility] PATHOLOG[facility] [address] [phone] Care Teams Division Superintendent Relationship Specialty Start Date End Date Macy Aguayo MD [facility] [place] [address] PCP - General 05/12/19
== END 2024-11-03 10:44 | disposition home or self-care (01) ==
LOC: ANHLAB 10:48
PROVIDERS: PCP Family Medicine; Visit Provider Internal Medicine Hematology & Oncology
DX: C83.35 Diffuse large B-cell lymphoma, 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 (principal)
CPT/HCPCS: 36415; 80053; 85025

== ENCOUNTER 2024-11-25 11:38 | Outpatient (CLI) | payer MEDICARE, SELFPAY ==
--- OUTSIDE RECORDS SUMMARY | 2024-11-25 11:44 | XMS_ITS | Encounter Summary ---
Author Organization [facility] Address [address] [place] [address] Care Team Providers Care Office Supervisor Name Role Phone Franco Ohara MD Primary Care Provider [phone] Encounter Details Date Type Department Care Team (Late Contact Info) Description 07/15/2019 Chart Note [facility] Radiation Therapy [address] [place] [address] [place] [address] [place] [address] Social History Tobacco Use Types [...] Department Care Team (Late Contact Info) Description 08/09/2025 10:15 AM CDT Office Visit [facility] Oncology and Hematology - [place] [address] [facility] [address] [place] [address] Elias Bryan MD [address] [facility] [address] [place] [address] documented as of this encounter Visit Diagnoses Not on filedocumented in this encounter Care Teams Office Supervisor Relationship Specialty Start Date End Date Franco Ohara MD PCP - General Family Practice 02/25/23 documented as of this encounter
--- OUTSIDE RECORDS SUMMARY | 2024-11-25 11:44 | XMS_ITS | Clinical Summary ---
Author Organization [facility] Address [address] [place] [address] Care Team Providers Care Supervisor Paint Department Name Role Phone Franco Ohara MD Primary Care Provider [phone] Allergies Active Allergy Reactions Criticality Noted Date Comments Aspirin Rash Low 12/19/2021 Ibuprofen Rash Low 06/02/2019 Mv-Mn-Folic Ac-Vit K-Herb 289 Rash Low 2018 Medications atorvastatin (LIPITOR) 40 mg tablet Take 20 mg by mouth daily with supper. told patient to cut dosage in half. Active montelukast sodium (MONTELUKAST ORAL) Take by mouth. Active Cranberry 400 mg Capsule Take by mouth. Active multivitamin (MULTIPLE VITAMINS DAILY ORAL) Take by mouth. Active vitamin B complex (Vitamins B Complex) Capsule Take 1 Tablet by mouth. Active [place]upahoehoe-3 Fatty Acids 1,250 mg Capsule Take 1,200 mg by mouth. Active lisinopriL (PRINIVIL) 20 mg tablet 1 Active vit B cmplx 3-FA-Vit C-Biotin (RENAVITE-RX RX) 1-60-300 mg-mg-mcg Tablet Take 1 Tablet by mouth daily. Active Fish Oil-Laupahoehoe-3 Fatty Acids 360-1,200 mg Capsule Take 1 Capsule by mouth. Active omeprazole (PriLOSEC) 40 mg Capsule, Delayed Release(E.C.) Take 40 mg by mouth daily. 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 (CMS/HCC) (Primary Dx) 11/05/2024 Orders Only [facility] Oncology and Hematology - [place] [address] [place] [address] Elias Bryan MD 11/04/2024 External Device Data STL ABSTRACTION Provider, Abstract 11/03/2024 Orders Only [facility] Oncology and Hematology [place] [address] [place] [address] Elias Bryan MD from Last 3 Months [...] Sign Reading Time Taken Comments Blood Pressure 136/76 11/08/2024 11:11 AM WATERMELON HARVESTING SUPERVISOR Pulse 86 11/08/2024 11:02 AM WATERMELON HARVESTING SUPERVISOR Temperature 36.8 C (98.3 F) 11/08/2024 11:02 AM WATERMEL[employer] HARVESTING SUPERVISOR Respiratory Rate 15 11/08/2024 11:02 AM WATERMELON HARVESTING SUPERVISOR Oxygen Saturation 97% 11/08/2024 11:02 AM WATERMELON HARVESTING SUPERVISOR Inhaled Oxygen Concentration - - Weight 90.4 kg (199 lb 6.4 oz) 11/08/2024 11:02 AM W[employer]MEL[employer] HARVESTING SUPERVISOR Height 167.6 cm (5' 6 ) 02/19/2022 9:52 AM CDT Body Mass Index 32.18 02/19/2022 9:52 AM CDT Plan of Treatment Upcoming Encounters Date Type Department Care Team (Late st Contact Info) Description 08/09/2025 10:15 AM CDT Office Visit [facility] Oncology and Hematology - [place] [address] [facility] [address] [place] [address] Elias Bryan MD [address] [facility] [address] [place] [address] Health Maintenance Due Date Last Done Comments DTAP/TDAP/TD VACCINES (1 - Tdap) 1959 PNEUMOCOCCAL VACCINE 65+ YEA RS (1 of 2 - PCV) 1959 Traditional Medicare (ACO) A nnual Wellness Visit 1959 ZOSTER VACCINE (1 of 2) 1961 RSV VACCINE (60+ or ) (1 - 1-dose 75+ series) 2017 COVID-19 Vaccine (3 - Modern a risk series) 01/20/2021 12/23/2020, 11/25/2020 INFLUENZA VACCINE (#1) 2024 OSTEOPOROSIS SCREENING Completed 3, 08/16/2020, 02/10/2018, Additional history exists Procedures Procedure Name Priority Date/Time Associated Diagnosis Comments CT ABDOMEN PELVIS W CONTRAST Routine 11/03/2024 1:58 PM WATERM[employer] HARVESTING SUPERVISOR COMPREHENSIVE METABOLIC PANEL Routine 11/03/2024 1:04 PM [employer] HARVESTING SUPERVISOR CREATININE Routine 11/03/2024 11:26 AM WATERMELON HARVESTING SUPERVISOR from Last 3 Months Results * CT ABDOMEN PELVIS W CONTRAST (11/03/2024 1:58 PM WATERMELON HARVESTING SUPERVISOR) Anatomical Region Laterality Modality Abdomen Other us Elias Bryan MD CT ORDERABLES Final Result * COMPREHENSIVE METABOLIC PANEL (11/03/2024 1:04 PM WATERMEL[employer] HARVESTING SUPERVISOR) Blood us Elias Bryan MD CHEMISTRY ORDERABLES Final Resu lt * CREATININE (11/03/2024 11:26 AM WATERMELON HARVESTING SUPERVISOR) Blood us Elias Bryan MD CHEMISTRY ORDERABLES Final Resu lt from Last 3 Months Insurance MEDICARE PART A AND B [facility] SUPP MEDICARE PART A AND B Care Teams Supervisor Paint Department Relationship Specialty Start Date End Date Franco Ohara MD PCP - General Family Practice 02/25/23
--- OUTSIDE RECORDS SUMMARY | 2024-11-25 11:44 | XMS_ITS | Continuity of Care Document ---
Author Organization [facility] Address [address] [place] [address] Phone Care Team Providers Care Direct Support Professional Name Role Phone Earnest Fortune MD Unavailable [...] Office/outpa tient visit,est, low [facility], [address] [place], [place] [address], [id number], tel:[phone] [facility] Left shoulder (chief complaint) Presence of left artificial shoulder joint [address] [place]. [address] [place] [address], [facility] [address], [place], [place], [id number] , . tel:[phone] Referring Provider: Earnest Lakhani, [address] [place] [address] [address], [place], [address] . tel:[phone] Office/outpa tient visit,est, [facility], [address] [address], [place], [place], [id number], [place] tel:[phone] [facility] New Shoulder (chief complaint) Pain in right shoulderPresence of left artificial shoulder jointPrimary osteoarthritis, right shoulder [address] [place]. [address] [facility] [address] [address], [place], [place], [id number] , [place]. tel:[phone] Referring Provider: Earnest Lakhani, [address] [facility] [address] [facility], [place], [address] . tel:[phone] [facility], [facility] [facility] [address], [place], [place], [id number], [place] tel:[phone] [facility] Left shoulder (chief complaint) Presence of left artificial shoulder joint 2 [place]. [address] [facility], [address] [place] [address], [place], [place], [id number] , [place]. tel:[phone] Referring Provider: Earnest Lakhani, [address] [facility] [address] [facility], [place], [address] . tel:[phone] Office/outpa tient visit,new, [facility], [address] [address], [place], [place], [id number], [place] [phone] [facility] Left Shoulder Pain Pain In Rt Shoulder Also (chief complaint) Primary osteoarthritis, left shoulder 2 [address] [place]. [address] [facility], [facility] [address], [place], [place], [id number] , [place]. tel:[phone] Referring Provider: Earnest Lakhani, [address] [address], [place], [address] . tel:[phone] Family History Family Member Type Diagnosis Age [...] tion(s) Medicare [place] Part B MB [id number] Annia [employer] Marc wayne [facility] [id number] Social History Type Description Quantity Date Captured [...] left reverse total shoulder Left shoulder (comments) aKte Butt is an 83-year-old female who returns [...]
--- OUTSIDE RECORDS SUMMARY | 2024-11-25 11:44 | XMS_ITS | Encounter Summary ---
Author Organization [facility] Address [address] [facility] [place] [address] Care Team Providers Care Detail Maker And Fitter Name Role Phone Macy Aguayo MD Primary Care Provider [phone] Encounter Details Date Type Department Care Team (Late st Contact Info) Description 05/12/2019 Lab Requisition [facility] Care Pathology Lab [address] [place] [address] Ubaldo Ugalde MD [address] [place] [address] Social History Tobacco Use Types Packs/Day [...] AM CDT) Case Report Surgical Pathology Report Case: [id number] Authorizing Provider: Ubaldo Ugalde MD Collected: 05/10/2019 10:31 AM Pathologist: Roxanna Mason MD Received: 05/12/2019 10:31 AM Specimen: Lymph Node Biopsy, [id number] 05/13/2019 12:40 PM CDT [facility] Final Diagnosis Lymph node, left groin, needle core biopsy: - Diffuse large B-cell lymphoma. - Small T-lymphoblast population identified. - See description. 05/13/2019 12:40 PM CDT [facility] Microscopic Description and Comment Review of the tissue demonstrates thin cores of lymphoid tissue. The cells are large in size, pleomorphic, and have a diffuse infiltration pattern. No necrosis is identified. Immunohistochemistry is performed on the tissue in the [facility] Department of Pathology to further characterize [...] cores of the tissue. Concurrent flow cytometry ([facility] Oncology, [id number]) describes two cell populations. The first population, comprising 29% of the sample, is a [id number] monoclonal B-cell population. The second population, estimated [...] biopsy is advised. KR 05/13/2019 12:40 PM [facility] Clinical History Left inguinal lymphadenopathy. 05/13/2019 12:40 PM [facility] Materials Received Received are 2 slides and 1 block labeled as [id number] along with the outside pathology report. [place] [address]. All materials are returned to the referring institution, along with a copy of our final report. 05/13/2019 12:40 PM [facility] Disclaimer The performance characteristics of all immunohistochemical and indirect immunofluorescence stains (if any) cited in this report were determined by the Histopathology Laboratory of [facility]. Some of these tests were developed by [...] attending (teaching) pathologist. 05/13/2019 12:40 PM CDT [facility] Embedded Images 05/13/2019 12:40 PM CDT [facility] Pathology/Cytolo gy BIOPSY OF LYMPH NODE / Unknown 05/10/2019 10:31 AM CDT 05/12/2019 10:31 AM CDT Ubaldo Ugalde MD LAB - PATHOLOGY/CYTO LOGY ORDERABLES Performing Organization Address [facility] Phone Number [facility] [address] [phone] documented in this encounter Visit Diagnoses Not on filedocumented in this encounter Care Teams Detail Maker And Fitter Relationship Specialty Start Date End Date Macy Aguayo MD [address] [place] [address] [address] [place] [address] PCP - General 05/12/19 documented as of this encounter
--- OUTSIDE RECORDS SUMMARY | 2024-11-25 11:44 | XMS_ITS | Patient Health Summary ---
Author Organization [facility] Address [address] [place] [address] Care Team Providers Care Strapper And Buffer Name Role Phone Macy Aguayo MD Primary Care Provider [phone] Note from [facility],non-owned Affiliates and Associated Physician Practices is amultiple site organization consisting of ambulatory clinics and hospital sitesin [place], [place], [place] and [place]. This disclosure is being madepursuant to the Care Everywhere program and may not contain all information available regarding this patient. Last updated 18.[facility] Social History Tobacco Use Types Packs/Day [...] 9:21 AM CDT) Case Report Flow Cytometry Case: [id number] Authorizing Provider: Ubaldo Ugalde MD Collected: 06/11/2019 09:21 AM Ordering Location: [facility] Pathology Lab Received: 06/11/2019 12:11 PM Pathologist: Miguel Kaplan MD Specimen: Bone Marrow 06/11/2019 3:49 PM CDT [facility] PATHOLOGY [facility] Final Diagnosis Bone marrow, flow cytometric immunophenotypic analysis: - No evidence of non-Hodgkin lymphoma or high-grade myeloid neoplasm. - See interpretation. 06/11/2019 3:49 PM CDT [facility] Flow Cytometry Interpretation The [...] the flow cytometry specimen is reviewed for quality assurance project manager purposes. Overall, the bone marrow aspirate specimen shows no evidence of involvement by non-Hodgkin lymphoma or a high-grade myeloid neoplasm. Correlation with clinical findings, concurrent bone marrow core biopsy, and relevant cytogenetic/molecu lar studies is required. 06/11/2019 3:49 PM [facility] PATHOLOG[facility] LAB Flow Cytometry Results Differential Result Comment Flow Cell Count /uL 33,000 Total Viability % 92.0 Lymphocytes % 14 Dim CD45 Region % 2 Monocytes % 6 Granulocytes % 77 06/11/2019 3:49 PM [facility] Reason for test LARGE B-CELL LYMPHOMA 06/11/2019 3:49 PM [facility] Client Specimen ID # [id number] 06/11/2019 3:49 PM [facility] Number of markers 10 were performed. A-1 Flow CD3 A-3 Flow CD10 A-5 Flow CD20 A-6 Flow CD23 A-2 Flow CD5 A-4 Flow CD19 A-7 Flow CD34 A-8 Flow CD45 A-9 Satsuma+CD19+ A-10 Lambda+CD19+ 06/11/2019 3:49 PM [facility] Disclaimer Test performed at [facility], [address] [place] [address], [address]. *The established laboratory minimum viability is 70%. [...] high complexity clinical testing. 06/11/2019 3:49 PM [facility] Embedded Images 9 3:49 PM CDT [facility] Pathology/Cytolo gy BONE MARROW SPECIMEN / Unknown 06/11/2019 9:21 AM CDT 06/11/2019 12:11 PM CDT Ubaldo Ugalde MD LAB - PATHOLOGY/CYTO LOGY ORDERABLES [facility] [address] [phone] * BONE MARROW BIOPSY (STL) (06/11/2019 8:19 AM CDT) Case Report Bone Marrow Patholog y Report Case: [id number] Authorizing Provider: Ubaldo Ugalde MD Collected: 06/11/2019 08:19 AM Ordering Location: [facility] Pathology Lab Received: 06/16/2019 01:06 PM Pathologist: Sheree Elise MD Specimens: A) - Bone Marrow Core, [id number] B) - Bone Marrow Clot, [id number] C) - Blood Peripheral, [id number] D) - Bone Marrow Aspirate, [id number] 06/17/2019 11:21 AM T [facility] Final Diagnosis Bone marrow, aspirate, clot section, and core biopsy: - Normocellular marrow with maturing trilineage hematopoiesis. - No evidence of lymphoma or high-grade myeloid neoplasm. - See comment. Peripheral blood smear: - Normal white blood cell count. - See comment. 06/17/2019 11:21 AM T [facility] Comment Overall, the bone marrow specimen is normocellular for age with maturing trilineage hematopoiesis and no evidence of lymphoma, a high-grade myeloid neoplasm, or significant dyspoiesis. Concurrent bone marrow flow cytometry ([id number]) demonstrates no evidence of non-Hodgkin lymphoma or a high-grade myeloid neoplasm. Correlation with clinical findings and relevant cytogenetic/molecular testing is required. AQ/SEKOU 06/17/2019 11:21 AM T [facility] Peripheral Smear Description Manual Differential Count (100 cells): 69% neutrophils, 23% lymphocytes, 3% monocytes, 1% eosinophils, and 4% bands. / 100 WBCs. Leukocyte number: normal. Granulocyte morphology: normal. Lymphocyte morphology: normal. Erythrocyte number: normal. Erythrocyte morphology: normocytic. Anisopoikilocytosis: not signifcant. Polychromasia: not significant. Platelet number: normal. Platelet morphology: normal. 06/17/2019 11:21 AM [facility] Bone Marrow Aspirate Differential [...] stain): no ring sideroblasts. 06/17/2019 11:21 AM [facility] Bone Marrow Core Biopsy [...] shows adequate storage iron Immunohistochemical staining at [facility] pathology with appropriate controls are as follows: CD3 and CD20 highlight small lymphoid aggregates composed of mixture of T and B lymphocytes , inconclusive for involvement by lymphoma. 06/17/2019 11:21 AM [facility] PATH[facility] Clinical History 06/17/2019 11:21 AM [facility] Materials Received Received are 17 slides and 3 blocks labeled as [id number] along with the outside pathology report. [place] [address]. All materials are returned to the referring institution, along with a copy of our final report. 06/17/2019 11:21 AM [facility] Disclaimer The performance characteristics of all immunohistochemical and indirect immunofluorescence stains (if any) cited in this report were determined by the Histopathology Laboratory of [facility]. Some of these tests were [...] the attending (teaching) pathologist. 06/17/2019 11:21 AM CDT [facility] Embedded Images 06/17/2019 11:21 AM CDT [facility] Pathology/Cytology SPECIMEN FROM BONE [...] MD LAB - PATHOLOGY/CYTO LOGY ORDERABLES [facility] [address] [phone] * PATHOLOGY TISSUE (05/10/2019 10:31 AM CDT) Case Report Surgical Pathology Report Case: [id number] Authorizing Provider: Ubaldo Ugalde MD Collected: 05/10/2019 10:31 AM Pathologist: Roxanna Mason MD Received: 05/12/2019 10:31 AM Specimen: Lymph Node Biopsy, [id number] 05/13/2019 12:40 PM CDT [facility] Final Diagnosis Lymph node, left groin, needle core biopsy: - Diffuse large B-cell lymphoma. - Small T-lymphoblast population identified. - See description. 05/13/2019 12:40 PM CDT [facility] Microscopic Description and Comment Review of the tissue demonstrates thin cores of lymphoid tissue. The cells are large in size, pleomorphic, and have a diffuse infiltration pattern. No necrosis is identified. Immunohistochemistry is performed on the tissue in the [facility] Department of Pathology to further characterize this [...] cores of the tissue. Concurrent flow cytometry ([facility], [id number]) describes two cell populations. The first population, comprising 29% of the sample, is a SF52-wgmeosko monoclonal B-cell population. The second population, estimated [...] biopsy is advised. KR 05/13/2019 12:40 PM [facility] Clinical History Left inguinal lymphadenopathy. 05/13/2019 12:40 PM [facility] Materials Received Received are 2 slides and 1 block labeled as [id number] along with the outside pathology report. [place] [address]. All materials are returned to the referring institution, along with a copy of our final report. 05/13/2019 12:40 PM T [facility] Disclaimer The performance characteristics of all immunohistochemical and indirect immunofluorescence stains (if any) cited in this report were determined by the Histopathology Laboratory of [facility]. Some of these tests were [...] attending (teaching) pathologist. 05/13/2019 12:40 PM CDT [facility] Embedded Images 05/13/2019 12:40 PM CDT [facility] Pathology/Cytolo gy BIOPSY OF LYMPH NODE / Unknown 05/10/2019 10:31 AM CDT 05/12/2019 10:31 AM CDT Ubaldo Ugalde MD LAB - PATHOLOGY/CYTO LOGY ORDERABLES [facility] [address] [phone] Care Teams Strapper And Buffer Relationship Specialty Start Date End Date Macy Aguayo MD [facility] [place] [id number] PCP - General 05/12/19
--- OUTSIDE RECORDS SUMMARY | 2024-11-25 11:44 | XMS_ITS | Clinical Summary ---
Author Organization [facility] Address [address] [place] [address] Care Team Providers Care Machine Etcher Name Role Phone Macy Aguayo MD Primary Care Provider [phone] Source Comments [facility],non-owned Affiliates and Associated Physician Practices is amultiple site organization consisting of ambulatory clinics and hospital sitesin [place], [place], [place] and [place]. This disclosure is being madepursuant to the Care Everywhere program and may not contain all information available regarding this patient. Last updated 18.[facility] Social History Tobacco Use Types Packs/Day Years Used Date Smoking Tobacco: Never Assessed Sex and Gender Information Value Date Recorded Sex Assigned at Not on file Gender Identity Not on file Sexual Orientation Not on file Plan of Treatment Health Maintenance Due Date Last Done Comments BONE DENSITY TESTING 1940 MEDICARE AWV 12 MONTHS 1940 DTAP/TDAP/TD VACCINES (1 - [...] age to complete this topic Care Teams Machine Etcher Relationship Specialty Start Date End Date Macy Aguayo MD [facility] [place] [address] PCP - General 05/12/19
--- OUTSIDE RECORDS SUMMARY | 2024-11-25 11:44 | XMS_ITS | Encounter Summary ---
Author Organization [facility] Address [address] [facility] [place] [address] Care Team Providers Care Investment Broker Name Role Phone Macy Aguayo MD Primary Care Provider Encounter Details Date Type Department Care Team (Late st Contact Info) Description 06/11/2019 Lab Requisition [facility] Care Pathology Lab [address] [place] [address] Ubaldo Ugalde MD [address] [place] [address] Social History Tobacco Use Types Packs/Day [...] AM CDT) Case Report Flow Cytometry Case: [id number] Authorizing Provider: Ubaldo Ugalde MD Collected: 06/11/2019 09:21 AM Ordering Location: [facility] Care Pathology Lab Received: 06/11/2019 12:11 PM Pathologist: Miguel Kaplan MD Specimen: Bone Marrow 06/11/2019 3:49 PM CDT [facility] PATH[facility] Final Diagnosis Bone marrow, flow cytometric immunophenotypic analysis: - No evidence of non-Hodgkin lymphoma or high-grade myeloid neoplasm. - See interpretation. 06/11/2019 3:49 PM CDT [facility] Flow Cytometry Interpretation The bone [...] flow cytometry specimen is reviewed for quality internship purposes. Overall, the bone marrow aspirate specimen shows no evidence of involvement by non-Hodgkin lymphoma or a high-grade myeloid neoplasm. Correlation with clinical findings, concurrent bone marrow core biopsy, and relevant cytogenetic/molecu lar studies is required. 06/11/2019 3:49 PM [facility] PATHOLOGY LAB Flow Cytometry Results Differential Result Comment Flow Cell Count /uL 33,000 Total Viability % 92.0 Lymphocytes % 14 Dim CD45 Region % 2 Monocytes % 6 Granulocytes % 77 06/11/2019 3:49 PM CDT [facility] PATHOLOGY LAB Reason for test LARGE B-CELL LYMPHOMA [facility]2019 [facility] Client Specimen ID # [id number] 06/11/2019 3:49 PM [facility] PATHOLOGY LAB Number of markers 10 were performed. A-1 Flow CD3 A-3 Flow CD10 A-5 Flow CD20 A-6 Flow CD23 A-2 Flow CD5 A-4 Flow CD19 A-7 Flow CD34 A-8 Flow CD45 A-9 [place]+CD19+ A-10 Lambda+CD19+ 06/11/2019 3:49 PM CDT [facility] PATHOLOGY LAB Disclaimer Test performed at [facility], [address] [place] [address], [address]. *The established laboratory minimum viability is 70%. [...] PATHOLOGY LAB Embedded Images 3:49 PM CDT [facility] PATHOLOGY LAB Pathology/Cytolo gy BONE MARROW SPECIMEN / Unknown 06/11/2019 9:21 AM CDT 06/11/2019 12:11 PM CDT Ubaldo Ugalde MD LAB - PATHOLOGY/CYTO LOGY ORDERABLES Performing Organization Address City/State/[facility] Co de Phone Number [facility] PATHOLOGY LAB [address] [phone] documented in this encounter Visit Diagnoses Not on filedocumented in this encounter Care Teams Investment Broker Relationship Specialty Start Date End Date Macy Aguayo MD [facility] [place] [address] PCP - General 05/12/19 documented as of this encounter
--- OUTSIDE RECORDS SUMMARY | 2024-11-25 11:44 | XMS_ITS | Referral Summary ---
Author Organization [facility] Address [address] [place] [address] Care Team Providers Care Home Health Care Social Worker Name Role Phone Macy Aguayo MD Primary Care Provider [phone] Source Comments [facility],non-owned Affiliates and Associated Physician Practices is amultiple site organization consisting of ambulatory clinics and hospital sitesin [place], [place], [place] and [place]. This disclosure is being madepursuant to the Care Everywhere program and may not contain all information available regarding this patient. Last updated 18.[facility] [email or web address] Social History Tobacco Use Types Packs/Day Years Used Date Smoking Tobacco: Never Assessed Sex and Gender Information Value Date Recorded Sex Assigned at Not on file Gender Identity Not on file Sexual Orientation Not on file Plan of Treatment Not on file Care Teams Home Health Care Social Worker Relationship Specialty Start Date End Date Macy Aguayo MD [address] [place] [address] [address] [place] [id number] PCP - General 05/12/19
--- OUTSIDE RECORDS SUMMARY | 2024-11-25 11:44 | XMS_ITS | Clinical Summary ---
Author Organization [facility] Address [address] [address] Phone Care Team Providers Care Greige Mender Name Role Phone Macy Aguayo MD Unavailable [phone] Madhu Flaherty DO Unavailable [phone] Macy Aguayo MD Primary Care Provider [phone] Allergies Active Allergy Reactions Criticality Noted Date [...] (MULTIVITAMIN PO) Take by mouth daily. Active Jackson-3 Fatty Acids (FISH OIL) 1200 MG Capsule Take 1,200 mg by mouth daily. Active Magnesium 500 MG TabletIndicatio ns:take 3 times a week Take 1 Tab by mouth. Active Selenium 100 MCG Capsule Take 1 Cap by mouth daily. Active Acetylcysteine (Y-KGNHIJ-E-CYS TEINE PO) Take 300 mg by mouth [...] age to complete this topic Insurance MEDICARE [facility] Care Teams Greige Mender Relationship Specialty Start Date End Date Macy Aguayo MD [address] [place] [address] [place] [address] PCP - General [facility] 03/06/17 Macy Aguayo MD [address] [place] [address] [place] [address] [facility] 11/05/16 Madhu Flaherty DO [address] [place] [address] [place] [address] Consulting Physician Gastroenterology 03/06/17
--- OUTSIDE RECORDS SUMMARY | 2024-11-25 11:44 | XMS_ITS | Encounter Summary ---
Author Organization [facility] Address [address] [place] [address] Care Team Providers Care Supervisor Graphite Name Role Phone Macy Aguayo MD Primary Care Provider [phone] Encounter Details Date Type Department Care Team (Late st Contact Info) Description 06/16/2019 Lab Requisition [facility] Pathology Lab [address] [place] [address] Ubaldo Ugalde MD [address] [place] [address] Social History Tobacco Use Types Packs/Day [...] Report Bone Marrow Patholog y Report Case: [id number] Authorizing Provider: Ubaldo Ugalde MD Collected: 06/11/2019 08:19 AM Ordering Location: [facility] Care Pathology Lab Received: 06/16/2019 01:06 PM Pathologist: Sheree Elise MD Specimens: A) - Bone Marrow Core, [id number] B) - Bone Marrow Clot, [id number] C) - Blood Peripheral, [id number] D) - Bone Marrow Aspirate, [id number] 06/17/2019 11:21 AM CDT [facility] PATHOLOGY LAB Final Diagnosis Bone marrow, aspirate, clot section, and core biopsy: - Normocellular marrow with maturing trilineage hematopoiesis. - No evidence of lymphoma or high-grade myeloid neoplasm. - See comment. Peripheral blood smear: - Normal white blood cell count. - See comment. 06/17/2019 11:21 AM [facility] PATH[facility] Comment Overall, the bone marrow specimen is normocellular for age with maturing trilineage hematopoiesis and no evidence of lymphoma, a high-grade myeloid neoplasm, or significant dyspoiesis. Concurrent bone marrow flow cytometry ([id number]) demonstrates no evidence of non-Hodgkin lymphoma or a high-grade myeloid neoplasm. Correlation with clinical findings and relevant cytogenetic/molecular testing is required. AQ/SEKOU 06/17/2019 11:21 AM [facility] PATH[facility] Peripheral Smear Description Manual Differential Count (100 cells): 69% neutrophils, 23% lymphocytes, 3% monocytes, 1% eosinophils, and 4% bands. / 100 WBCs. Leukocyte number: normal. Granulocyte morphology: normal. Lymphocyte morphology: normal. Erythrocyte number: normal. Erythrocyte morphology: normocytic. Anisopoikilocytosis: not signifcant. Polychromasia: not significant. Platelet number: normal. Platelet morphology: normal. 06/17/2019 11:21 AM [facility] Bone Marrow Aspirate Differential [...] stain): no ring sideroblasts. 06/17/2019 11:21 AM [facility] Bone Marrow Core Biopsy [...] shows adequate storage iron Immunohistochemical staining at [facility] pathology with appropriate controls are as follows: CD3 and CD20 highlight small lymphoid aggregates composed of mixture of T and B lymphocytes , inconclusive for involvement by lymphoma. 06/17/2019 11:21 AM [facility] Clinical History 06/17/2019 11:21 AM [facility] Materials Received Received are 17 slides and 3 blocks labeled as [id number] along with the outside pathology report. [place] [address]. All materials are returned to the referring institution, along with a copy of our final report. 06/17/2019 11:21 AM [facility] Disclaimer The performance characteristics of all immunohistochemical and indirect immunofluorescence stains (if any) cited in this report were determined by the Histopathology Laboratory of [facility]. Some of these tests were developed by [...] the attending (teaching) pathologist. 06/17/2019 11:21 AM [facility] PATH[facility] Embedded Images 06/17/2019 11:21 AM [facility] PATH[facility] Pathology/Cytology SPECIMEN FROM BONE [...] Ugalde MD LAB - PATHOLOGY/CYTO LOGY ORDERABLES [facility] PATHOLOGY LAB [address] [phone] documented in this encounter Visit Diagnoses Not on filedocumented in this encounter Care Teams Supervisor Graphite Relationship Specialty Start Date End Date Macy Aguayo MD [address] [place] [address] [address] [place] [address] PCP - General 05/12/19 documented as of this encounter
[2024-11-25 12:01] LABS: Basophils Absolute Auto 0.1 K/mm3 (0.0-0.1); Basophils Percent Auto 0.9 % (0.2-1.2); Eosinophils Absolute Auto 0.2 K/mm3 (0-0.3); Eosinophils Percent Auto 3.9 % (0-4.4); Hematocrit 38.7 % (37.0-47.0); Hemoglobin 12.6 g/dL (12.0-15.0); Immature Granulocyte Absolute 0.01 K/mm3 (0.00-0.031); Immature Granulocyte Percent A 0.2 % (0-0.5); Lymphocytes Absolute Auto 2.17 K/mm3 (0.9-3.2); Mean Corpuscular HGB Conc 32.6 g/dl (32-36); Mean Platelet Volume 8.9 fl (7.4-10.4); Monocytes Absolute Auto 0.5 K/mm3 (0.1-0.6); Monocytes Percent Auto 8.9 % (2.6-8.5); Neutrophils Absolute Auto 2.9 K/mm3 (1.3-6.7); Neutrophils Percent Auto 49.1 % (45.5-73.1); Platelet Count Result 278 k/mm3 (150-375); Red Blood Count 4.35 M/mm3 (4.2-5.4); Red Cell Distribution Width 12.9 % (11.5-14.5); White Blood Count 5.9 K/mm3 (4.5-10.0)
[2024-11-25 16:50] LABS: Alanine Aminotransferase 26 U/L (6-35); Albumin Level 4.5 g/dL (3.5-5.1); Alkaline Phosphatase 86 U/L (38-126); Anion Gap 8 mmol/L (4-12); Aspartate Amino Transferase 44 U/L (14-36); Bilirubin,Total 0.5 mg/dL (0.2-1.3); Blood Urea Nitrogen 19 mg/dL (7-17); Calcium 10.1 mg/dL (8.4-10.2); Carbon Dioxide 27 mmol/L (22-30); Chloride 104 mmol/L (98-107); Estimated Glomerular Filt Rate > 60; Glucose 85 mg/dL (65-110); Potassium 4.3 mmol/L (3.4-5.0); Sodium 139 mmol/L (137-145)
== END 2024-11-25 11:39 | disposition home or self-care (01) ==
LOC: ANHLAB 11:40
PROVIDERS: PCP Family Medicine; Visit Provider Family Medicine
DX: F33.0 Major depressive disorder, recurrent, mild (principal); I10 Essential (primary) hypertension; E66.9 Obesity, unspecified; G47.30 Sleep apnea, unspecified; E55.9 Vitamin D deficiency, unspecified
CPT/HCPCS: 36415; 80053; 82306; 85025

== ENCOUNTER 2024-12-28 13:46 | Outpatient (CLI) | payer MEDICARE, SELFPAY ==
--- NOTE | ~2024-12-28 | CT_ITS ---
Procedure: CT LE LT wo con Ordering provider: Isaac rDummond MD History: . Preoperative Planning . Comparison: None. Technique: Thin slice axial CT of the No IV contrast was given. Sagittal and coronal reformatted imag es were also obtained and reviewed. The dose-length product was 1971.2 mGy-cm. Findings/impression: BONES: No evidence of fracture or dislocation. Sesamoid bone seen posteriorly in the knee. Other bones are unremarkable. JOINT SPACES: Chondrocalcinosis seen in the medial and lateral menisci. Severe narrowing of the media l compartment of the knee is suggestive of severe osteoarthritic changes. Marginal osteophytes seen i n the knee and patella. 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 SOFT TISSUES: Calcification in the left plantar fascia is noted. Fluid seen in the left suprapatellar bursa. Reviewed, dictated and finalized at location A.
--- OUTSIDE RECORDS SUMMARY | 2024-12-28 15:28 | XMS_ITS | Continuity of Care Document ---
Author Organization [facility] Address [address] [place] [address] Phone Care Team Providers Care Lead Nuclear Medicine Technologist Name Role Phone Earnest Fortune MD Unavailable [...] Office/outpa tient visit,est, low [facility], [address] [place], [place] [address], [id number], tel:[phone] [facility] Left shoulder (chief complaint) Presence of left artificial shoulder joint 3 [place]. [address] [place] [address], [facility] [address], [place], [place], [id number] , . tel:[phone] Referring Provider: Earnest Lakhani, [address] [place] [address] [address], [place], [address] . tel:[phone] Office/outpa tient visit,est, [facility], [address] [address], [place], [place], [id number], [place] tel:[phone] [facility] New Shoulder (chief complaint) Pain in right shoulderPresence of left artificial shoulder jointPrimary osteoarthritis, right shoulder 2 [place]. [address] [facility], [address] [address], [place], [place], [id number] , [place]. tel:[phone] Referring Provider: Earnest Lakhani, [address] [facility] [address] [facility], [place], [address] . tel:[phone] [facility], [facility] [address], [place], [place], [id number], [place] tel:[phone] [facility] Left shoulder (chief complaint) Presence of left artificial shoulder joint 2 [place]. [address] [facility], [address] [address], [place], [place], [id number] , [place]. tel:[phone] Referring Provider: Earnest Lakhani, [address] [facility] [address] [facility], [place], [address] . tel:[phone] Office/outpa tient visit,new, [facility], [address] [address], [place], [place], [id number], [place] [phone] [facility] Left Shoulder Pain Pain In Rt Shoulder Also (chief complaint) Primary osteoarthritis, left shoulder 2 [place]. [address] [facility], [facility] [address], [place], [place], [id number] , [place]. tel:[phone] Referring Provider: Earnest Lakhani, [address] [address], [place], [address] . tel:[phone] Family History Family Member Type Diagnosis Age [...] tion(s) [place] Part [place] MB [id number] Annia [employer] [facility] [id number] Social History Type Description Quantity Date Captured [...]
--- OUTSIDE RECORDS SUMMARY | 2024-12-28 15:28 | XMS_ITS | Encounter Summary ---
Author Organization [facility] Address [address] [facility] [place] [address] Care Team Providers Care Catalyst Plant Supervisor Name Role Phone Macy Aguayo MD Primary Care Provider [phone] Encounter Details Date Type Department Care Team (Late st Contact Info) Description 06/11/2019 Lab Requisition [facility] Care Pathology Lab [address] [place] [address] Ubaldo Ugalde MD [address] [place] [address] Social History Tobacco Use Types Packs/Day [...] AM CDT) Case Report Flow Cytometry Case: [id number] Authorizing Provider: Ubaldo Ugalde MD Collected: 06/11/2019 09:21 AM Ordering Location: [facility] Care Pathology Lab Received: 06/11/2019 12:11 PM [...] the flow cytometry specimen is reviewed for food quality technician purposes. Overall, the bone marrow aspirate specimen shows no evidence of involvement by non-Hodgkin lymphoma or a high-grade myeloid neoplasm. Correlation with clinical findings, concurrent bone marrow core biopsy, and relevant cytogenetic/molecu lar studies is required. 06/11/2019 3:49 PM [facility] PATHOLOGY LAB Flow Cytometry Results Differential Result Comment Flow Cell Count /uL 33,000 Total Viability % 92.0 Lymphocytes % 14 Dim CD45 Region % 2 Monocytes % 6 Granulocytes % 77 06/11/2019 3:49 PM CDT [facility] PATHOLOGY LAB Reason for test LARGE B-CELL LYMPHOMA 06/11[facility]2019 3:[facility] Client Specimen ID # [id number] 06/11/2019 3:49 PM [facility] PATHOLOGY LAB Number of markers 10 were performed. A-1 Flow CD3 A-3 Flow CD10 A-5 Flow CD20 A-6 Flow CD23 A-2 Flow CD5 A-4 Flow CD19 A-7 Flow CD34 A-8 Flow CD45 A-9 [place]+CD19+ A-10 Lambda+CD19+ 06/11/2019 3:49 PM CDT [facility] PATHOLOGY LAB Disclaimer Test performed at [facility], [address] [place] [address], [address]. *The established laboratory minimum viability is 70%. [...] PATHOLOGY LAB Embedded Images 3:49 PM CDT [facility] PATHOLOGY LAB Pathology/Cytolo gy BONE MARROW SPECIMEN / Unknown 06/11/2019 9:21 AM CDT 06/11/2019 12:11 PM CDT Ubaldo Ugalde MD LAB - PATHOLOGY/CYTO LOGY ORDERABLES Performing Organization Address City/State/[facility] Co de Phone Number [facility] PATHOLOGY LAB [address] [phone] documented in this encounter Visit Diagnoses Not on filedocumented in this encounter Care Teams Catalyst Plant Supervisor Relationship Specialty Start Date End Date Macy Aguayo MD [facility] [place] [address] PCP - General 05/12/19 documented as of this encounter
--- OUTSIDE RECORDS SUMMARY | 2024-12-28 15:28 | XMS_ITS | Encounter Summary ---
Author Organization [facility] Address [address] [facility] [place] [address] Care Team Providers Care Living Manager Name Role Phone Macy Aguayo MD Primary Care Provider [phone] Encounter Details Date Type Department Care Team (Late st Contact Info) Description 05/12/2019 Lab Requisition [facility] Care Pathology Lab [address] [place] [address] Ubaldo Ugalde MD [address] [place] [address] Social History Tobacco Use Types Packs/Day [...] CDT) Case Report Surgical Pathology Report Case: [id number] Authorizing Provider: Ubaldo Ugalde MD Collected: 05/10/2019 10:31 AM Pathologist: Roxanna Mason MD Received: 05/12/2019 10:31 AM Specimen: Lymph Node Biopsy, [id number] 05/13/2019 12:40 PM CDT [facility] PATHOLOGY [facility] [...] is performed on the tissue in the [facility] Department of Pathology to further characterize [...] cores of the tissue. Concurrent flow cytometry ([facility] Oncology, [id number]) describes two cell populations. The first population, comprising 29% of the sample, is a [id number] monoclonal B-cell population. The second population, estimated [...] biopsy is advised. KR 05/13/2019 12:40 PM [facility] PATHOLOGY LAB Clinical History Left inguinal lymphadenopathy. 05/13/2019 12:40 PM [facility] PATHOLOGY [facility] Materials Received Received are 2 slides and 1 block labeled as [id number] along with the outside pathology report. [place] [address]. All materials are returned to the referring institution, along with a copy of our final report. 05/13/2019 12:40 PM [facility] PATHOLOGY LAB Disclaimer The performance characteristics of all immunohistochemical and indirect immunofluorescence stains (if any) cited in this report were determined by the Histopathology Laboratory of [facility]. Some of these tests were developed [...] attending (teaching) pathologist. 05/13/2019 12:40 PM CDT [facility] PATHOLOGY LAB Embedded Images 05/13/2019 12:40 PM CDT [facility] PATHOLOGY LAB Pathology/Cytolo gy BIOPSY OF LYMPH NODE / Unknown 05/10/2019 10:31 AM CDT 05/12/2019 10:31 AM CDT Ubaldo Ugalde MD LAB - PATHOLOGY/CYTO LOGY ORDERABLES Performing Organization Address [facility] Phone Number [facility] PATHOLOGY LAB [address] [phone] documented in this encounter Visit Diagnoses Not on filedocumented in this encounter Care Teams Living Manager Relationship Specialty Start Date End Date Macy Aguayo MD [address] [place] [address] [address] [place] [address] PCP - General 05/12/19 documented as of this encounter
--- OUTSIDE RECORDS SUMMARY | 2024-12-28 15:28 | XMS_ITS | Clinical Summary ---
Author Organization [facility] Address [address] [place] [address] Care Team Providers Care Pellet Machine Operator Name Role Phone Franco Ohara MD Primary Care Provider [phone] Allergies Active Allergy Reactions Criticality Noted Date [...] Capsule Take 1 Tablet by mouth. Active [place]-3 Fatty Acids 1,250 mg Capsule Take 1,200 mg by mouth. Active lisinopriL (PRINIVIL) 20 mg tablet 12/22/2020 Active vit B cmplx 3-FA-Vit C-Biotin (RENAVITE-RX RX) 1-60-300 mg-mg-mcg Tablet Take 1 Tablet by mouth daily. Active Fish Oil-[place]-3 Fatty Acids 360-1,200 mg Capsule Take 1 Capsule by mouth. Active omeprazole (PriLOSEC) 40 mg Capsule, Delayed Release(E.C.) Take 40 mg by mouth daily. 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/02/2019 Encounters Date Type Department Care Team Description 12/18/2024 External Device Data ST[facility] ABSTRACTION Provider, Abstract 12/17/2024 External Device Data [facility] ABSTRACTION Provider, Abstract 11/30/2024 External Device Data [facility] ABSTRACTION Provider, Abstract 11/08/2024 11:00 AM STRATEGY DIRECTOR Office Visit [facility] Oncology and Hematology [facility] [address] [place] [address] Elias Bryan MD Diffuse large b-cell lymphoma, 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 (CMS/HCC) (Primary Dx) 11/05/2024 Orders Only [facility] Oncology and Hematology [facility] [address] [place] [address] Elias Bryan MD 11/04/2024 External Device Data ST[facility] ABSTRACTION Provider, Abstract 11/03/2024 Orders Only [facility] Oncology and Hematology [facility] [address] [place] [address] Elias Bryan MD from Last 3 Months [...] Comments Blood Pressure 136/76 11/08/2024 11:11 AM STRATEGY DIRECTOR Pulse 86 11/08/2024 11:02 AM STRATEGY DIRECTOR Temperature 36.8 C (98.3 F) 11/08/2024 11:02 AM STRATEGY DIRECTOR Respiratory Rate 15 11/08/2024 11:02 AM STRATEGY DIRECTOR Oxygen Saturation 97% 11/08/2024 11:02 AM STRATEGY DIRECTOR Inhaled Oxygen Concentration - - Weight 90.4 kg (199 lb 6.4 oz) 11/08/2024 11:02 AM STRATEGY DIRECTOR Height 167.6 cm (5' 6 ) 02/19/2022 9:52 AM CDT Body Mass Index 32.18 02/19/2022 9:52 AM CDT Plan of Treatment Upcoming Encounters Date Type Department Care Team (Late st Contact Info) Description 08/09/2025 10:15 AM CDT Office Visit [facility] Oncology and Hematology - [place] [address] [place] [address] Elias Bryan MD [address] [facility] [address] [place] [address] Health Maintenance Due Date Last Done Comments DTAP/TDAP/TD VACCINES (1 - Tdap) 1959 PNEUMOCOCCAL VACCINE 50+ YEA RS (1 of 2 - PCV) [...] PELVIS W CONTRAST Routine 11/03/2024 1:58 PM STRATEGY DIRECTOR COMPREHENSIVE METABOLIC PANEL Routine 11/03/2024 1:04 PM STRATEGY DIRECTOR CREATININE Routine 11/03/2024 11:26 AM STRATEGY DIRECTOR from Last 3 Months Results * CT ABDOMEN PELVIS W CONTRAST (11/03/2024 1:58 PM STRATEGY DIRECTOR) Anatomical Region Laterality Modality Abdomen Other us Elias Bryan MD CT ORDERABLES Final Result * COMPREHENSIVE METABOLIC PANEL (11/03/2024 1:04 PM STRATEGY DIRECTOR) Blood us Elias Bryan MD CHEMISTRY ORDERABLES Final Resu lt * CREATININE (11/03/2024 11:26 AM STRATEGY DIRECTOR) Blood Elias Bryan MD CHEMISTRY ORDERABLES Final Resu lt from Last 3 Months Insurance MEDICARE PART A AND B [facility] SUPP [facility] SUPP MEDICARE PART A AND B Care Teams Pellet Machine Operator Relationship Specialty Start Date End Date Franco Ohara MD PCP - General Family Practice 02/25/23
--- OUTSIDE RECORDS SUMMARY | 2024-12-28 15:29 | XMS_ITS | Encounter Summary ---
Author Organization [facility] Address [address] [facility] [place] [address] Care Team Providers Care Professor Of Mathematics Name Role Phone Macy Aguayo MD Primary Care Provider [phone] Encounter Details Date Type Department Care Team (Late st Contact Info) Description 06/16/2019 Lab Requisition [facility] Pathology Lab [address] [place] [address] Ubaldo Ugalde MD [address] [facility] [address] [place] [address] Social History Tobacco Use Types Packs/Day [...] Report Bone Marrow Patholog y Report Case: [id number] Authorizing Provider: Ubaldo Ugalde MD Collected: 06/11/2019 08:19 AM Ordering Location: [facility] Care Pathology Lab Received: 06/16/2019 01:06 PM [...] count. - See comment. 06/17/2019 11:21 AM [facility] PATHOLOGY LAB Comment Overall, the bone marrow specimen is normocellular for age with maturing trilineage hematopoiesis and no evidence of lymphoma, a high-grade myeloid neoplasm, or significant dyspoiesis. Concurrent bone marrow flow cytometry ([id number]) demonstrates no evidence of non-Hodgkin lymphoma or a high-grade myeloid neoplasm. Correlation with clinical findings and relevant cytogenetic/molecular testing is required. AQ/SEKOU 06/17/2019 11:21 AM [facility] PATHOLOGY LAB Peripheral Smear Description Manual Differential Count (100 cells): 69% neutrophils, 23% lymphocytes, 3% monocytes, 1% eosinophils, and 4% bands. / 100 WBCs. Leukocyte number: normal. Granulocyte morphology: normal. Lymphocyte morphology: normal. Erythrocyte number: normal. Erythrocyte morphology: normocytic. Anisopoikilocytosis: not signifcant. Polychromasia: not significant. Platelet number: normal. Platelet morphology: normal. 06/17/2019 11:21 AM [facility] PATHOLOGY LAB Bone Marrow Aspirate [...] stain): no ring sideroblasts. 06/17/2019 11:21 AM [facility] PATHOLOGY LAB Bone Marrow Core [...] shows adequate storage iron Immunohistochemical staining at [facility] pathology with appropriate controls are as follows: CD3 and CD20 highlight small lymphoid aggregates composed of mixture of T and B lymphocytes , inconclusive for involvement by lymphoma. 06/17/2019 11:21 AM [facility] PATHOLOGY LAB Clinical History 06/17/2019 11:21 AM [facility] PATHOLOGY LAB Materials Received Received are 17 slides and 3 blocks labeled as [id number] along with the outside pathology report. [place] [address]. All materials are returned to the referring institution, along with a copy of our final report. 06/17/2019 11:21 AM [facility] PATHOLOGY LAB Disclaimer The performance characteristics of all immunohistochemical and indirect immunofluorescence stains (if any) cited in this report were determined by the Histopathology Laboratory of [facility]. Some of these tests were developed by [...] the attending (teaching) pathologist. 06/17/2019 11:21 AM [facility] PATHOLOGY LAB Embedded Images 06/17/2019 11:21 AM [facility] PATHOLOGY LAB Pathology/Cytology SPECIMEN FROM [...] Ugalde MD LAB - PATHOLOGY/CYTO LOGY ORDERABLES [facility] PATHOLOGY LAB [address] [phone] documented in this encounter Visit Diagnoses Not on filedocumented in this encounter Care Teams Professor Of Mathematics Relationship Specialty Start Date End Date Macy Aguayo MD [address] [place] [address] [address] [place] [address] PCP - General 05/12/19 documented as of this encounter
--- OUTSIDE RECORDS SUMMARY | 2024-12-28 15:29 | XMS_ITS | Clinical Summary ---
Author Organization [facility] Address [address] [place] [address] Care Team Providers Care Precision Printing Worker Name Role Phone Macy Aguayo MD Primary Care Provider [phone] Source Comments [facility]non-owned Affiliates and Associated Physician Practices is amultiple site organization consisting of ambulatory clinics and hospital sitesin [place], [place], [place] and [place]. This disclosure is being madepursuant to the Care Everywhere program and may not contain all information available regarding this patient. Last updated 18.[facility] Social History Tobacco Use Types Packs/Day Years [...] to complete this topic MENINGOCOCCAL (Group B) VACC INE SHARED DECISION-MAKING Aged Out No longer eligibl e based on patient's age to complete this topic MENINGOCOCCAL GROUPS A/C/Y/W VACCINE Aged Out No longer eligible b ased on patient's age to complete this topic Care Teams Precision Printing Worker Relationship Specialty Start Date End Date Macy Aguayo MD [facility] [place] [id number] PCP - General 05/12/19
--- OUTSIDE RECORDS SUMMARY | 2024-12-28 15:29 | XMS_ITS | Encounter Summary ---
Author Organization [facility] Address [address] [place] [address] Care Team Providers Care Health Claims Examiner Name Role Phone Franco Ohara MD Primary Care Provider [phone] Encounter Details Date Type Department Care Team (Late Contact Info) Description 07/15/2019 Chart Note [facility] Radiation Therapy [address] [place] [address] [place] [address] [place] [address] Social History Tobacco Use Types [...] Description 08/09/2025 10:15 AM CDT Office Visit [facility] Oncology and Hematology - [place] [address] [facility] [address] [place] [address] Elias Bryan MD [address] [facility] [address] [place] [address] documented as of this encounter Visit Diagnoses Not on filedocumented in this encounter Care Teams Health Claims Examiner Relationship Specialty Start Date End Date Franco Ohara MD PCP - General Family Practice 02/25/23 documented as of this encounter
--- OUTSIDE RECORDS SUMMARY | 2024-12-28 15:29 | XMS_ITS | Clinical Summary ---
Author Organization [facility] Address [address] [address] Phone Care Team Providers Care Supplemental Nurse Name Role Phone Macy Aguayo MD Unavailable [phone] Madhu Flaherty DO Unavailable [phone] Macy Aguayo MD Primary Care Provider [phone] Allergies Active Allergy Reactions Criticality Noted Date [...] (MULTIVITAMIN PO) Take by mouth daily. Active [place]-3 Fatty Acids (FISH OIL) 1200 MG Capsule Take 1,200 mg by mouth daily. Active Magnesium 500 MG TabletIndicatio ns:take 3 times a week Take 1 Tab by mouth. Active Selenium 100 MCG Capsule Take 1 Cap by mouth daily. Active Acetylcysteine (M-FBTDSL-I-CYS TEINE PO) Take 300 mg by mouth [...] age to complete this topic Insurance MEDICARE [facility] Care Teams Supplemental Nurse Relationship Specialty Start Date End Date Macy Aguayo MD [address] [place] [address] [place] [address] PCP - General Child Daycare Worker 03/06/17 Macy Aguayo MD [address] [place] [address] [place] [address] Child Daycare Worker 11/05/16 Madhu Flaherty DO [address] [place] [address] [place] [address] Consulting Physician Gastroenterology 03/06/17
== END 2024-12-28 13:47 | disposition home or self-care (01) ==
PROVIDERS: PCP Family Medicine; Visit Provider Orthopaedic Surgery
DX: M17.12 Unilateral primary osteoarthritis, left knee (principal)
CPT/HCPCS: 73700

== ENCOUNTER 2025-02-28 09:54 | Outpatient (CLI) | payer MEDICARE, SELFPAY ==
--- OUTSIDE RECORDS SUMMARY | 2025-02-28 10:35 | XMS_ITS | Clinical Summary ---
Author Organization [facility] Address [address] [place] [address] Care Team Providers Care Agriculture Manager Name Role Phone Franco Ohara MD Primary Care Provider [phone] Allergies Active Allergy Reactions Criticality Noted Date [...] Capsule Take 1 Tablet by mouth. Active [place]-3 Fatty Acids 1,250 mg Capsule Take 1,200 mg by mouth. Active lisinopriL (PRINIVIL) 20 mg tablet 12/22/2020 Active vit B cmplx 3-FA-Vit C-Biotin (RENAVITE-RX RX) 1-60-300 mg-mg-mcg Tablet Take 1 Tablet by mouth daily. Active Fish Oil-[place]-3 Fatty Acids 360-1,200 mg Capsule Take 1 Capsule by mouth. Active omeprazole (PriLOSEC) 40 mg Capsule, Delayed Release(E.C.) Take 40 mg by mouth daily. 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/02/2019 Encounters Date Type Department Care Team Description 12/29/2024 External Device Data [facility] ABSTRACTION Provider, Abstract 12/29/2024 External Device Data [facility] ABSTRACTION Provider, Abstract 12/18/2024 External Device Data [facility] ABSTRACTION Provider, Abstract 12/17/2024 External Device Data [facility] ABSTRACTION Provider, Abstract from Last 3 Months Family History Medical [...] Comments Blood Pressure 136/76 11/08/2024 11:11 AM MEASUREMENT SPECIALIST Pulse 86 11/08/2024 11:02 AM MEASUREMENT SPECIALIST Temperature 36.8 C (98.3 F) 11/08/2024 11:02 AM MEASUREMENT SPECIALIST Respiratory Rate 15 11/08/2024 11:02 AM MEASUREMENT SPECIALIST Oxygen Saturation 97% 11/08/2024 11:02 AM MEASUREMENT SPECIALIST Inhaled Oxygen Concentration - - Weight 90.4 kg (199 lb 6.4 oz) 11/08/2024 11:02 AM MEASUREMENT SPECIALIST Height 167.6 cm (5' 6 ) 02/19/2022 9:52 AM CDT Body Mass Index 32.18 02/19/2022 9:52 AM CDT Plan of Treatment Upcoming Encounters Date Type Department Care Team (Late st Contact Info) Description 08/09/2025 10:15 AM CDT Office Visit [facility] Oncology and Hematology - [place] [address] [facility] [address] [place] [address] Elias Bryan MD [address] [facility] [address] [place] [address] Health Maintenance Due Date Last Done Comments DTAP/TDAP/TD VACCINES (1 - Tdap) 1959 PNEUMOCOCCAL VACCINE 50+ YEA RS (1 of 2 - PCV) 1961 ZOSTER VACCINE (1 of 2) 1961 RSV VACCINE (60+ or ) (1 - 1-dose 75+ series) 2017 COVID-19 Vaccine (3 - Modern a risk series) 01/20/2021 12/23/2020, 11/25/2020 INFLUENZA VACCINE (#1) 2024 OSTEOPOROSIS SCREENING 08/27/2028 , 08/16/2020, 02/10/2018, Additional history exists Insurance MEDICARE PART A AND B [facility] SUPP [facility] SUPP MEDICARE PART A AND B Care Teams Agriculture Manager Relationship Specialty Start Date End Date Franco Ohara MD PCP - General Family Practice 02/25/23
--- OUTSIDE RECORDS SUMMARY | 2025-02-28 10:35 | XMS_ITS | Clinical Summary ---
Author Organization [facility] Address [address] [place] [address] Care Team Providers Care Roller Shop Utility Worker Name Role Phone Macy Aguayo MD Primary Care Provider [phone] Source Comments [facility],non-owned Affiliates and Associated Physician Practices is amultiple site organization consisting of ambulatory clinics and hospital sitesin [place], [place], [place] and [place]. This disclosure is being madepursuant to the Care Everywhere program and may not contain all information available regarding this patient. Last updated 18.[facility] Social History Tobacco Use Types Packs/Day Years Used Date Smoking Tobacco: Never Assessed Comments Unknown Sex and Gender Information Value Date Recorded Sex Assigned at Not on file Legal Sex Female 6:01 AM CDT Gender Identity Not on file Sexual Orientation Not on file Plan of Treatment Health Maintenance Due Date Last Done Comments BONE DENSITY TESTING 1942 DTAP/TDAP/TD VACCINES (1 - Tdap) 1961 PNEUMOCOCCAL VACCINE 50+ (1 of 1 - PCV) 1992 ZOSTER VACCINE (1 of 2) 1992 Respiratory Syncytial Virus (RSV) Vaccine Pt: or over 60 yrs (1 - 1-dose 75+ series) 2017 COVID-19 VACCINE ( - 2023-2 5 season) 2024 DEPRESSION SCREENING 10/13/2024 INFLUENZA VACCINE (Season Ended) 2025 HEPATITIS B VACCINE Aged Out No longe [...] age to complete this topic Insurance MEDICARE Care Teams Roller Shop Utility Worker Relationship Specialty Start Date End Date Macy Aguayo MD [facility] [place] [address] PCP - General 05/12/19
--- OUTSIDE RECORDS SUMMARY | 2025-02-28 10:35 | XMS_ITS | Continuity of Care Document ---
Author Organization [facility] Address [address] [place] [address] Phone Care Team Providers Care Senior Systems Software Engineer Name Role Phone Earnest Fortune MD Unavailable [...] Office/outpa tient visit,est, low [facility], [address] [place], [place] [address], [id number], tel:[phone] [facility] Left shoulder (chief complaint) Presence of left artificial shoulder joint 3 [place]. [address] [place] [address], [facility] [address], [place], [place], [id number] , . tel:[phone] Referring Provider: Earnest Lakhani, [address] [place] [address] [address], [place], [address] . tel:[phone] Office/outpa tient visit,est, [facility], [address] [address], [place], [place], [id number], [place] tel:[phone] [facility] New Shoulder (chief complaint) Pain in right shoulderPresence of left artificial shoulder jointPrimary osteoarthritis, right shoulder 2 [place]. [address] [facility] [address], [place], [place], [id number] , [place]. tel:[phone] Referring Provider: Earnest Lakhani, [address] [facility] [address] [facility], [place], [address] . tel:[phone] [facility], [facility] [address], [place], [place], [id number], [place] tel:[phone] [facility] Left shoulder (chief complaint) Presence of left artificial shoulder joint 2 [place]. [address] [facility], [address] [address], [place], [place], [address] , [place]. tel:[phone] Referring Provider: Earnest Lakhani, [address] [facility] [address] [facility], [place], [address] . tel:[phone] Office/outpa tient visit,new, [facility], [address] [address], [place], [place], [address], [place] [phone] [facility] Left Shoulder Pain Pain In Rt Shoulder Also (chief complaint) Primary osteoarthritis, left shoulder 2 [place]. [address] [facility], [facility] [address], [place], [place], [address] , [place]. tel:[phone] Referring Provider: Earnest Lakhani, [address] [address], [place], [address] . tel:[phone] Family History Family Member Type Diagnosis Age [...] Provider Payers Payer name Insurance type Covered constitution party ID Authoriza tion(s) [place] W[place] Part B MB [id number] Annia [employer] Marc wayne [facility] [id number] Social History Type Description Quantity Date Captured [...]
--- OUTSIDE RECORDS SUMMARY | 2025-02-28 10:35 | XMS_ITS | Encounter Summary ---
Author Organization [facility] Address [address] [facility] [place] [address] Care Team Providers Care Manager Merchandising Name Role Phone Macy Aguayo MD Primary Care Provider [phone] Encounter Details Date Type Department Care Team (Late st Contact Info) Description 06/16/2019 Lab Requisition [facility] Care Pathology Lab [address] [place] [address] Ubaldo Ugalde MD [address] [place] [address] Social History Tobacco Use Types Packs/Day [...] Report Bone Marrow Patholog y Report Case: [id number] Authorizing Provider: Ubaldo Ugalde MD Collected: 06/11/2019 08:19 AM Ordering Location: [facility] Care Pathology Lab Received: 06/16/2019 01:06 [...] count. - See comment. 06/17/2019 11:21 AM [facility] at 1121 CDT AP Comment Overall, the bone marrow specimen is normocellular for age with maturing trilineage hematopoiesis and no evidence of lymphoma, a high-grade myeloid neoplasm, or significant dyspoiesis. Concurrent bone marrow flow cytometry ([id number]) demonstrates no evidence of non-Hodgkin lymphoma or a high-grade myeloid neoplasm. Correlation with clinical findings and relevant cytogenetic/molecular testing is required. AQ/SEKOU 06/17/2019 11:21 AM [facility] Peripheral Smear Description Manual Differential Count (100 cells): 69% neutrophils, 23% lymphocytes, 3% monocytes, 1% eosinophils, and 4% bands. / 100 WBCs. Leukocyte number: normal. Granulocyte morphology: normal. Lymphocyte morphology: normal. Erythrocyte number: normal. Erythrocyte morphology: normocytic. Anisopoikilocytosis: not signifcant. Polychromasia: not significant. Platelet number: normal. Platelet morphology: normal. 06/17/2019 11:21 AM [facility] Bone Marrow Aspirate [...] stain): no ring sideroblasts. 06/17/2019 11:21 AM [facility] Bone Marrow Core [...] shows adequate storage iron Immunohistochemical staining at [facility] pathology with appropriate controls are as follows: CD3 and CD20 highlight small lymphoid aggregates composed of mixture of T and B lymphocytes , inconclusive for involvement by lymphoma. 06/17/2019 11:21 AM [facility] Clinical History 06/17/2019 11:21 AM [facility] Materials Received Received are 17 slides and 3 blocks labeled as [id number] along with the outside pathology report. [place] [address]. All materials are returned to the referring institution, along with a copy of our final report. 06/17/2019 11:21 AM [facility] Disclaimer The performance characteristics of all immunohistochemical and indirect immunofluorescence stains (if any) cited in this report were determined by the Histopathology Laboratory of [facility]. Some of these tests were developed [...] the attending (teaching) pathologist. 06/17/2019 11:21 AM [facility] Embedded Images 06/17/2019 11:21 AM [facility] Pathology/Cytology SPECIMEN FROM [...] 8:19 AM CDT 06/16/2019 1:06 PM CDT us Ubaldo Ugalde MD LAB - PATHOLOGY/CYTOLOGY ORDER DESTINI Final Result [facility] PATHOLOGY LAB [address] [phone] documented in this encounter Visit Diagnoses Not on filedocumented in this encounter Care Teams Manager Merchandising Relationship Specialty Start Date End Date Macy Aguayo MD [address] [place] [address] [address] [place] [address] PCP - General 05/12/19 documented as of this encounter
--- OUTSIDE RECORDS SUMMARY | 2025-02-28 10:35 | XMS_ITS | Clinical Summary ---
Author Organization [facility] Address [address] [address] Phone Care Team Providers Care Water Rights Specialist Name Role Phone Macy Aguayo MD Unavailable [phone] Madhu Flaherty DO Unavailable [phone] Macy Aguayo MD Primary Care Provider Allergies Active Allergy Reactions Criticality Noted Date [...] (MULTIVITAMIN PO) Take by mouth daily. Active Simpson-3 Fatty Acids (FISH OIL) 1200 MG Capsule Take 1,200 mg by mouth daily. Active Magnesium 500 MG TabletIndicatio ns:take 3 times a week Take 1 Tab by mouth. Active Selenium 100 MCG Capsule Take 1 Cap by mouth daily. Active Acetylcysteine (T-WARXGQ-S-CYS TEINE PO) Take 300 mg by mouth [...] Health Maintenance Due Date Last Done Comments Hepatitis C Virus (HCV) Screening 1940 Pneumococcal Immunization (50+ years) (2 of 2 - PPSV23) 08/26/2017 08/26/2016 Respiratory Syncytial Virus (RSV) Immunization (Adult) (1 - 1-dose 75+ series) 2017 SARS-COV-2 Immunization ( season) 2024 03/06/2022, 08/28/2021, 12/23/2020, Additional history exists Influenza Immunization (Season Ended) 2025 07/13/2018, 08/17/2017, 08/21/2016, Additional history exists Pneumococcal Immunization Combined Discontinued 08/26/2016 DTaP/Tdap/Td Immunization Discontinued 08/24/2017 TdaP Immunization Completed 08/24/2017 Zoster Immunization Completed 07/06/2020, 05/03/2020, 08/18/2015, Additional history exists Hepatitis B Immunization Aged Out No longer eligible based on patient's age to complete this topic Human Papillomavirus (HPV) Immunization Aged Out No longer eligible based on patient's age to complete this topic Meningococcal Immunization (ACWY) Aged Out No longer eligible based on patient's age to complete this topic Rotavirus Immunization Aged Out No lo nger eligible based on patient's age to complete this topic Insurance MEDICARE [facility] Care Teams Water Rights Specialist Relationship Specialty Start Date End Date Macy Aguayo MD [address] [place] [address] [place] [address] [place] [address] PCP - General Electrical Sign Servicer 03/06/17 Macy Aguayo MD [address] [place] [address] [place] [place] [address] Electrical Sign Servicer 11/05/16 Madhu Flaherty DO [address] [place] [address] [place] [address] Consulting Physician Gastroenterology 03/06/17
--- OUTSIDE RECORDS SUMMARY | 2025-02-28 10:35 | XMS_ITS | Encounter Summary ---
Author Organization [facility] Address [address] [facility] [place] [address] Care Team Providers Care Granite Block Paver Name Role Phone Macy Aguayo MD Primary Care Provider [phone] Encounter Details Date Type Department Care Team (Late st Contact Info) Description 06/11/2019 Lab Requisition [facility] Care Pathology Lab [address] [place] [address] Ubaldo Ugalde MD [address] [place] [address] Social History Tobacco Use Types Packs/Day [...] AM CDT) Case Report Flow Cytometry Case: [id number] Authorizing Provider: Ubaldo Ugalde MD Collected: 06/11/2019 09:21 AM Ordering Location: [facility] Care Pathology Lab Received: 06/11/2019 12:11 PM Pathologist: Miguel Kaplan MD Specimen: Bone Marrow 06/11/2019 3:49 PM CDT [facility] Final Diagnosis Bone marrow, flow cytometric immunophenotypic analysis: - No evidence of non-Hodgkin lymphoma or high-grade myeloid neoplasm. - See interpretation. 06/11/2019 3:49 PM CDT [facility] PATH[facility] at 1549 CDT Flow Cytometry Interpretation The bone marrow specimen [...] flow cytometry specimen is reviewed for quality liaison purposes. Overall, the bone marrow aspirate specimen shows no evidence of involvement by non-Hodgkin lymphoma or a high-grade myeloid neoplasm. Correlation with clinical findings, concurrent bone marrow core biopsy, and relevant cytogenetic/molecu lar studies is required. 06/11/2019 3:49 PM [facility] PATHOLOGY LAB Flow Cytometry Results Differential Result Comment Flow Cell Count /uL 33,000 Total Viability % 92.0 Lymphocytes % 14 Dim CD45 Region % 2 Monocytes % 6 Granulocytes % 77 06/11/2019 3:49 PM CDT [facility] Reason for test LARGE B-CELL LYMPHOMA 06/11/2019 3:49 PM [facility] PATH[facility] Client Specimen ID # [id number] 06/11/2019 3:49 PM [facility] PATH[facility] Number of markers 10 were performed. A-1 Flow CD3 A-3 Flow CD10 A-5 Flow CD20 A-6 Flow CD23 A-2 Flow CD5 A-4 Flow CD19 A-7 Flow CD34 A-8 Flow CD45 A-9 Man+CD19+ A-10 Lambda+CD19+ 06/11/2019 3:49 PM [facility] Disclaimer Test performed at [facility], [address] [place] [address], [address]. *The established laboratory minimum viability is 70%. [...] complexity clinical testing. 06/11/2019 3:49 PM CDT [facility] PATHOLOGY LAB Embedded Images 3:49 PM CDT [facility] PATH[facility] LAB Pathology/Cytolo gy BONE MARROW SPECIMEN / Unknown 06/11/2019 9:21 AM CDT 06/11/2019 12:11 PM CDT Ubaldo Ugalde MD LAB - PATHOLOGY/CYTOLOGY ORDER DESTINI Final Result [facility] PATHOLOGY LAB [address] [phone] documented in this encounter Visit Diagnoses Not on filedocumented in this encounter Care Teams Granite Block Paver Relationship Specialty Start Date End Date Macy Aguayo MD [facility] [place] [address] PCP - General 05/12/19 documented as of this encounter
--- OUTSIDE RECORDS SUMMARY | 2025-02-28 10:35 | XMS_ITS | Encounter Summary ---
Author Organization [facility] Address [address] [place] [address] Care Team Providers Care Family Services Manager Name Role Phone Macy Aguayo MD Primary Care Provider [phone] Encounter Details Date Type Department Care Team (Late st Contact Info) Description 05/12/2019 Lab Requisition [facility] Care Pathology Lab [address] [place] [address] Ubaldo Ugalde MD [address] [place] [address] Social History Tobacco Use Types Packs/Day [...] CDT) Case Report Surgical Pathology Report Case: [id number] Authorizing Provider: Ubaldo Ugalde MD Collected: 05/10/2019 10:31 AM Pathologist: Roxanna Mason MD Received: 05/12/2019 10:31 AM Specimen: Lymph Node Biopsy, [id number] 05/13/2019 12:40 PM CDT [facility] Final Diagnosis Lymph node, left groin, needle core biopsy: - Diffuse large B-cell lymphoma. - Small T-lymphoblast population identified. - See description. 05/13/2019 12:40 PM CDT [facility] at 1240 CDT Microscopic Description and Comment Review of the tissue demonstrates thin cores of lymphoid tissue. The cells are large in size, pleomorphic, and have a diffuse infiltration pattern. No necrosis is identified. Immunohistochemistry is performed on the tissue in the [facility] Department of Pathology to further characterize [...] cores of the tissue. Concurrent flow cytometry ([facility], [id number]) describes two cell populations. The first population, comprising 29% of the sample, is a UP50-[id number] monoclonal B-cell population. The second population, estimated [...] biopsy is advised. KR 05/13/2019 12:40 PM [facility] Clinical History Left inguinal lymphadenopathy. 05/13/2019 12:40 PM [facility] Materials Received Received are 2 slides and 1 block labeled as [id number] along with the outside pathology report. [place] [address]. All materials are returned to the referring institution, along with a copy of our final report. 05/13/2019 12:40 PM [facility] Disclaimer The performance characteristics of all immunohistochemical and indirect immunofluorescence stains (if any) cited in this report were determined by the Histopathology Laboratory of [facility]. Some of these tests were developed [...] attending (teaching) pathologist. 05/13/2019 12:40 PM CDT [facility] PATHOLOGY LAB Embedded Images 05/13/2019 12:40 PM T [facility] PATHOLOGY LAB Pathology/Cytolo gy BIOPSY OF LYMPH NODE / Unknown 05/10/2019 10:31 AM CDT 05/12/2019 10:31 AM CDT Ubaldo Ugalde MD LAB - PATHOLOGY/CYTOLOGY ORDER DESTINI Final Result [facility] PATHOLOG[facility] LAB [address] [phone] documented in this encounter Visit Diagnoses Not on filedocumented in this encounter Care Teams Family Services Manager Relationship Specialty Start Date End Date Macy Aguayo MD [address] [place] [address] [address] [place] [address] PCP - General 05/12/19 documented as of this encounter
--- OUTSIDE RECORDS SUMMARY | 2025-02-28 10:35 | XMS_ITS | Encounter Summary ---
Author Organization [facility] Address [address] [place] [address] Care Team Providers Care Muffler Installer Name Role Phone Franco Ohara MD Primary Care Provider [phone] Encounter Details Date Type Department Care Team (Late Contact Info) Description 07/15/2019 Chart Note [facility] Radiation Therapy [address] [place] [address] [place] [address] [place] [address] Social History Tobacco Use Types [...] Description 08/09/2025 10:15 AM CDT Office Visit [facility] Oncology and Hematology - Matheus [address] [facility] [address] [place] [address] Elias Bryan MD [address] [facility] [address] [place] [address] documented as of this encounter Visit Diagnoses Not on filedocumented in this encounter Care Teams Muffler Installer Relationship Specialty Start Date End Date Franco Ohara MD PCP - General Family Practice 02/25/23 documented as of this encounter
[2025-02-28 11:09] LABS: Basophils Percent Auto 0.7 % (0.2-1.2); Eosinophils Absolute Auto 0.2 K/mm3 (0-0.3); Hematocrit 39.9 % (37.0-47.0); Hemoglobin 12.5 g/dL (12.0-15.0); Immature Granulocyte Absolute 0.02 K/mm3 (0.00-0.031); Immature Granulocyte Percent A 0.3 % (0-0.5); Lymphocytes Absolute Auto 2.02 K/mm3 (0.9-3.2); Lymphocytes Percent Auto 33.3 % (18.3-44.2); Mean Corpuscular HGB Conc 31.3 g/dl (32-36); Mean Corpuscular Hemoglobin 28.2 pg (26-34); Mean Corpuscular Volume 89.9 fl (80-100); Mean Platelet Volume 9.1 fl (7.4-10.4); Monocytes Absolute Auto 0.5 K/mm3 (0.1-0.6); Monocytes Percent Auto 8.7 % (2.6-8.5); Neutrophils Absolute Auto 3.2 K/mm3 (1.3-6.7); Platelet Count Result 279 k/mm3 (150-375); Red Blood Count 4.44 M/mm3 (4.2-5.4); Red Cell Distribution Width 13.8 % (11.5-14.5); White Blood Count 6.1 K/mm3 (4.5-10.0)
[2025-02-28 11:25] LABS: Albumin Level 4.5 g/dL (3.5-5.1); Estimated Glomerular Filt Rate > 60; Glucose 91 mg/dL (65-110)
[2025-02-28 11:27] LABS: Prothrombin Time 13.4 Seconds (11.1-14.7)
[2025-02-28 11:28] LABS: Partial Thromboplastin Time 27.1 Seconds (22.3-36.8)
[2025-02-28 11:30] LABS: Hemoglobin A1C 5.6 % (<5.7); Urine Cotinine NEGATIVE
[2025-02-28 12:53] LABS: MRSA (PCR) NOT DETECTED (NOT DETECTE)
== END 2025-02-28 09:55 | disposition home or self-care (01) ==
LOC: ANHSURGERY 10:00
PROVIDERS: Anesthesiology; PCP Family Medicine; Visit Provider Orthopaedic Surgery
DX: M17.12 Unilateral primary osteoarthritis, left knee (principal); C83.30 Diffuse large B-cell lymphoma, unspecified site; Z01.818 Encounter for other preprocedural examination
CPT/HCPCS: 36415; 80307; 82040; 82565; 82947; 83036; 85025; 85610; 85730; 87641

== ENCOUNTER 2025-03-21 01:54 | Day surgery (SDC) | payer MEDICARE, SELFPAY ==
[2025-02-28 10:15] VITALS: BMI 32.9
--- NOTE | 2025-02-28 10:28 | PC.NURSE ---
Report to the Outpatient Waiting Room, entrance under the green pavilion located off [facility], at time __1000am on date __03/21/25 . Planned Procedure Time: ___1200pm .? Time changes happen often and if your time is changed the preop area will call you the afternoon before. - You and your visitor will be asked to self-screen and do not enter if you have any COVID symptoms. Please call surgeon if you need to reschedule. - A mask is optional within the hospital at this time. Patients may have clear liquids (water, carbonated beverages, clear teas, apple juice) until 3 hours prior to surgery with a maximum of 20 ounces. - No food from midnight until time of surgery and no smoking, or chewing tobacco (or any form of nicotine). No chewing gum, candy or mints. (09:00am) Take only the following medications with a SIP of water on the morning of surgery: ___Cyclobenzaprine if needed, Tylenol if needed DO NOT STOP ANY OF YOUR OTHER PRESCRIPTION MEDICATIONS PRIOR TO SURGERY EXCEPT THE FOLLOWING Hold all vitamins and supplements for 3 days per anesthesiologist.Date of last dose 03/17/25 Medications to discontinue per physician None Date to take last dose None Please no make-up, nail martiniquais, hairspray, perfume, deodorant, or body powder the day of surgery.? No jewelry (including any body piercings) or valuables the day of surgery, leave them at home.? Please take a shower or bath the night before, or the morning of, surgery with an antibacterial soap.? Wear comfortable, loose fitting clothing.? CPAP, Overnight night bag, Robe, walker - Jewelry must be removed prior to entering the operating room.? Rings and piercings that are not removed may be cut off. - The hospital will not accept responsibility for valuables.? - Please leave all valuables, including medications, at home the day of surgery. If you are going home after surgery, a licensed truck driver teamster must drive you home.? - NO public transportation without another adult if you receive anesthesia. - We recommend that an adult stay with you for 24 hours following discharge. - We also recommend that you do not drive, make important decision, drink alcoholic beverages, or take any drugs that were not prescribed by your health care provider for at least 24 hours after your discharge time. Follow any additional instructions given to you from your surgeon. Telephone instructions given to ___patient and Friend and asked if any additional questions and then verbalized understanding. Patient advised to call surgeon office or pre surgery nurse liaison [phone] if any additional questions.
[2025-02-28 10:33] VITALS: BP 133/66; PULSE 76; RESP 16; O2SAT 100
[2025-03-21] VITALS (14 sets, daily range): BP systolic 76–146; BP diastolic 45–75; PULSE 66–98; RESP 12–20; TEMP 35.6–36.8; O2SAT 90–100
--- NOTE | ~2025-03-21 | XR_ITS ---
[id number] Ordering provider: Isaac Drummond MD History: . POST OP LEFT TKA . Comparison: None. FINDINGS: BONES: No acute fracture or dislocation. JOINT SPACES: Total knee arthroplasty. SOFT TISSUES: Postoperative changes in the soft tissues. IMPRESSION: No acute osseous abnormality left knee. Total knee arthroplasty. Reviewed, dictated and finalized at location A.
--- OUTSIDE RECORDS SUMMARY | 2025-03-21 01:57 | XMS_ITS | Clinical Summary ---
Author Organization [facility] Address [address] [place] [address] Care Team Providers Care Leather Seasoner Name Role Phone Franco Ohara MD Primary Care Provider [phone] Allergies Active Allergy Reactions Criticality Noted Date [...] Capsule Take 1 Tablet by mouth. Active Laurel-3 Fatty Acids 1,250 mg Capsule Take 1,200 mg by mouth. Active lisinopriL (PRINIVIL) 20 mg tablet 12/22/2020 Active vit B cmplx 3-FA-Vit C-Biotin (RENAVITE-RX RX) 1-60-300 mg-mg-mcg Tablet Take 1 Tablet by mouth daily. Active Fish Oil-[place]-3 Fatty Acids 360-1,200 mg Capsule Take 1 Capsule by mouth. Active omeprazole (PriLOSEC) 40 mg Capsule, Delayed Release(E.C.) Take 40 mg by mouth daily. 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/02/2019 Encounters Date Type Department Care Team Description 03/15/2025 External Device Data ST[facility] ABSTRACTION Provider, Abstract 03/08/2025 External Device Data STL ABSTRACTION Provider, Abstract 03/03/2025 External Device Data [facility] ABSTRACTION Provider, Abstract 03/01/2025 External Device Data STL ABSTRACTION Provider, Abstract [...] Comments Blood Pressure 136/76 11/08/2024 11:11 AM RUBBER COMPOUNDER SUPERVISOR Pulse 86 11/08/2024 11:02 AM RUBBER COMPOUNDER SUPERVISOR Temperature 36.8 C (98.3 F) 11/08/2024 11:02 AM RUBBER COMPOUNDER SUPERVISOR Respiratory Rate 15 11/08/2024 11:02 AM RUBBER COMPOUNDER SUPERVISOR Oxygen Saturation 97% 11/08/2024 11:02 AM RUBBER COMPOUNDER SUPERVISOR Inhaled Oxygen Concentration - - Weight 90.4 kg (199 lb 6.4 oz) 11/08/2024 11:02 AM RUBBER COMPOUNDER SUPERVISOR Height 167.6 cm (5' 6) 02/19/2022 9:52 AM CDT Body Mass Index 32.18 02/19/2022 9:52 AM CDT Plan of Treatment Upcoming Encounters Date Type Department Care Team (Late st Contact Info) Description 08/09/2025 10:15 AM CDT Office Visit [facility] Oncology and Hematology - Matheus [address] [facility] [address] [place] [address] Elias Bryan MD [address] [facility] [address] [place] [address] Health Maintenance Due Date Last [...] exists Insurance MEDICARE PART A AND B [facility] SUPP [facility] SUPP MEDICARE PART A AND B Care Teams Leather Seasoner Relationship Specialty Start Date End Date Franco Ohara MD PCP - General Family Practice 02/25/23
--- OUTSIDE RECORDS SUMMARY | 2025-03-21 01:57 | XMS_ITS | Encounter Summary ---
Author Organization [facility] Address [address] [place] [address] Care Team Providers Care Optical Lab Technician Name Role Phone Macy Aguayo MD Primary Care Provider [phone] Encounter Details Date Type Department Care Team (Late st Contact Info) Description 06/11/2019 Lab Requisition [facility] Care Pathology Lab [address] [place] [address] Ubaldo Ugalde MD [address] [place] [address] Social History Tobacco Use Types Packs/Day [...] AM CDT) Case Report Flow Cytometry Case: [id number] Authorizing Provider: Ubaldo Ugalde MD Collected: 06/11/2019 09:21 AM Ordering Location: [facility] Care Pathology Lab Received: 06/11/2019 12:11 [...] flow cytometry specimen is reviewed for quality systems technician purposes. Overall, the bone marrow aspirate specimen shows no evidence of involvement by non-Hodgkin lymphoma or a high-grade myeloid neoplasm. Correlation with clinical findings, concurrent bone marrow core biopsy, and relevant cytogenetic/molecu lar studies is required. 06/11/2019 3:49 PM [facility] PATHOLOGY LAB Flow Cytometry Results Differential Result Comment Flow Cell Count /uL 33,000 Total Viability % 92.0 Lymphocytes % 14 Dim CD45 Region % 2 Monocytes % 6 Granulocytes % 77 06/11/2019 3:49 PM [facility] PATHOLOGY LAB Reason for test LARGE B-CELL LYMPHOMA 06/11/2019 3:49 PM [facility] PATHOLOGY LAB Client Specimen ID # [id number] 06/11/2019 3:49 PM [facility] PATHOLOGY LAB Number of markers 10 were performed. A-1 Flow CD3 A-3 Flow CD10 A-5 Flow CD20 A-6 Flow CD23 A-2 Flow CD5 A-4 Flow CD19 A-7 Flow CD34 A-8 Flow CD45 A-9 [place]+CD19+ A-10 Lambda+CD19+ 06/11/2019 3:49 PM [facility] Disclaimer Test performed at [facility], [address] [place] [address], [address]. *The established laboratory minimum viability is 70%. [...] LAB - PATHOLOGY/CYTOLOGY ORDER DESTINI Final Result [facility] PATHOLOGY LAB [address] [phone] documented in this encounter Visit Diagnoses Not on filedocumented in this encounter Care Teams Optical Lab Technician Relationship Specialty Start Date End Date Macy Aguayo MD [facility] [place] [phone] PCP - General 05/12/19 documented as of this encounter
--- OUTSIDE RECORDS SUMMARY | 2025-03-21 01:57 | XMS_ITS | Clinical Summary ---
Author Organization [facility] Address [address] [place] [address] Care Team Providers Care Planer Chain Offbearer Name Role Phone Macy Aguayo MD Primary Care Provider [phone] Source Comments [facility] [employer],non-owned Affiliates and Associated Physician Practices is amultiple site organization consisting of ambulatory clinics and hospital sitesin [place], [place], [place] and [place]. This disclosure is being madepursuant to the Care Everywhere program and may not contain all information available regarding this patient. Last updated 18.[facility] [employer] Social History Tobacco Use Types Packs/Day Years [...] complete this topic Insurance MEDICARE Care Teams Planer Chain Offbearer Relationship Specialty Start Date End Date Macy Aguayo MD [facility] [place] [address] PCP - General 05/12/19
--- OUTSIDE RECORDS SUMMARY | 2025-03-21 01:57 | XMS_ITS | Encounter Summary ---
Author Organization [facility] Address [address] [facility] [place] [address] Care Team Providers Care Swimming Pool Installer Name Role Phone Macy Aguayo MD Primary Care Provider Encounter Details Date Type Department Care Team (Late st Contact Info) Description 06/16/[address] [facility] Care Pathology Lab [address] [place] [address] Ubaldo Ugalde MD [address] [place] [address] Social History Tobacco Use Types Packs/Day [...] Report Bone Marrow Patholog y Report Case: [id number] Authorizing Provider: Ubaldo Uaglde MD Collected: 06/11/2019 08:19 AM Ordering Location: [facility] Care Pathology Lab Received: 06/16/2019 [...] See comment. 06/17/2019 11:21 AM [facility] PATHOLOGY LAB at 1121 CDT AP Comment Overall, the bone marrow specimen is normocellular for age with maturing trilineage hematopoiesis and no evidence of lymphoma, a high-grade myeloid neoplasm, or significant dyspoiesis. Concurrent bone marrow flow cytometry ([id number]) demonstrates no evidence of non-Hodgkin lymphoma or a high-grade myeloid neoplasm. Correlation with clinical findings and relevant cytogenetic/molecular testing is required. AQ/SEKOU 06/17/2019 11:21 AM [facility] PATHOLOGY LAB Peripheral Smear Description Manual Differential Count (100 cells): 69% neutrophils, 23% lymphocytes, 3% monocytes, 1% eosinophils, and 4% bands. / 100 WBCs. Leukocyte number: normal. Granulocyte morphology: normal. Lymphocyte morphology: normal. Erythrocyte number: normal. Erythrocyte morphology: normocytic. Anisopoikilocytosis: not signifcant. Polychromasia: not significant. Platelet number: normal. Platelet morphology: normal. 06/17/2019 11:21 AM [facility] PATHOLOGY LAB Bone Marrow Aspirate Differential [...] ring sideroblasts. 06/17/2019 11:21 AM [facility] PATHOLOGY LAB Bone Marrow Core Biopsy [...] shows adequate storage iron Immunohistochemical staining at [facility] pathology with appropriate controls are as follows: CD3 and CD20 highlight small lymphoid aggregates composed of mixture of T and B lymphocytes , inconclusive for involvement by lymphoma. 06/17/2019 11:21 AM [facility] PATHOLOGY LAB Clinical History 06/17/2019 11:21 AM [facility] PATHOLOGY LAB Materials Received Received are 17 slides and 3 blocks labeled as [id number] along with the outside pathology report. [place] [address]. All materials are returned to the referring institution, along with a copy of our final report. 06/17/2019 11:21 AM [facility] PATHOLOGY LAB Disclaimer The performance characteristics of all immunohistochemical and indirect immunofluorescence stains (if any) cited in this report were determined by the Histopathology Laboratory of [facility]. Some of these tests were developed [...] the attending (teaching) pathologist. 06/17/2019 11:21 AM [facility] PATHOLOGY LAB Embedded Images 06/17/2019 11:21 AM [facility] PATHOLOGY LAB Pathology/Cytology SPECIMEN FROM BONE [...] LAB - PATHOLOGY/CYTOLOGY ORDER DESTINI Final Result [facility] PATHOLOGY LAB [address] [phone] documented in this encounter Visit Diagnoses Not on filedocumented in this encounter Care Teams Swimming Pool Installer Relationship Specialty Start Date End Date Macy Aguayo MD [address] [place] [address] [address] [place] [address] PCP - General 05/12/19 documented as of this encounter
--- OUTSIDE RECORDS SUMMARY | 2025-03-21 01:57 | XMS_ITS | Encounter Summary ---
Author Organization [facility] Address [address] [facility] [place] [address] Care Team Providers Care Care Transition Coordinator Name Role Phone Macy Aguayo MD Primary Care Provider [phone] Encounter Details Date Type Department Care Team (Late st Contact Info) Description 05/12/2019 Lab Requisition [facility] Care Pathology Lab [address] [place] [address] Ubaldo Ugalde MD [address] [place] [address] Social History Tobacco Use Types Packs/Day [...] CDT) Case Report Surgical Pathology Report Case: [id number] Authorizing Provider: Ubaldo Ugalde MD Collected: 05/10/2019 10:31 AM Pathologist: Roxanna Mason MD Received: 05/12/2019 10:31 AM Specimen: Lymph Node Biopsy, [id number] 05/13/2019 12:40 PM CDT [facility] PATHOLOGY LAB [...] is performed on the tissue in the [facility] Department of Pathology to further characterize this [...] cores of the tissue. Concurrent flow cytometry ([facility], [id number]) describes two cell populations. The first population, comprising 29% of the sample, is a IJ88-[id number] monoclonal B-cell population. The second population, estimated [...] biopsy is advised. KR 05/13/2019 12:40 PM [facility] PATHOLOGY LAB Clinical History Left inguinal lymphadenopathy. 05/13/2019 12:40 PM [facility] PATHOLOGY LAB Materials Received Received are 2 slides and 1 block labeled as [id number] along with the outside pathology report. [place] [address]. All materials are returned to the referring institution, along with a copy of our final report. 05/13/2019 12:40 PM [facility] PATHOLOGY LAB Disclaimer The performance characteristics of all immunohistochemical and indirect immunofluorescence stains (if any) cited in this report were determined by the Histopathology Laboratory of [facility]. Some of these tests were developed [...] attending (teaching) pathologist. 05/13/2019 12:40 PM CDT [facility] PATHOLOGY LAB Embedded Images 05/13/2019 12:40 PM T [facility] PATHOLOGY LAB Pathology/Cytolo gy BIOPSY OF LYMPH NODE / Unknown 05/10/2019 10:31 AM CDT 05/12/2019 10:31 AM CDT Ubaldo Ugalde MD LAB - PATHOLOGY/CYTOLOGY ORDER DESTINI Final Result [facility] PATHOLOGY LAB [address] [phone] documented in this encounter Visit Diagnoses Not on filedocumented in this encounter Care Teams Care Transition Coordinator Relationship Specialty Start Date End Date Macy Aguayo MD [address] [place] [address] [address] [place] [phone] PCP - General 05/12/19 documented as of this encounter
--- OUTSIDE RECORDS SUMMARY | 2025-03-21 01:57 | XMS_ITS | Clinical Summary ---
Author Organization [facility] Address [address] [address] Phone Care Team Providers Care Avionics Electrical Engineer Name Role Phone aMcy Aguayo MD Unavailable [phone] Madhu Flaherty DO Unavailable [phone] Macy Aguayo MD Primary Care Provider [phone] Allergies Active Allergy Reactions Criticality Noted Date [...] (MULTIVITAMIN PO) Take by mouth daily. Active Dallas-3 Fatty Acids (FISH OIL) 1200 MG Capsule Take 1,200 mg by mouth daily. Active Magnesium 500 MG TabletIndicatio ns:take 3 times a week Take 1 Tab by mouth. Active Selenium 100 MCG Capsule Take 1 Cap by mouth daily. Active Acetylcysteine (N-YOJXSO-J-CYS TEINE PO) Take 300 mg by mouth [...] age to complete this topic Insurance MEDICARE [facility] Care Teams Avionics Electrical Engineer Relationship Specialty Start Date End Date Macy Aguayo MD [address] [place] [address] [place] [address] PCP - General Cabinetmaker Apprentice 03/06/17 Macy Aguayo MD [address] [place] [address] [place] [address] Cabinetmaker Apprentice 11/05/16 Madhu Flaherty DO [address] [place] [address] [place] [address] Consulting Physician Gastroenterology 03/06/17
--- OUTSIDE RECORDS SUMMARY | 2025-03-21 01:57 | XMS_ITS | Continuity of Care Document ---
Author Organization [facility] Address [address] [place] [address] Phone Care Team Providers Care Folder Machine Name Role Phone Earnest Fortune MD Unavailable [...] Office/outpa tient visit,est, low [facility], [address] [place], [place] [address], [id number], tel:[phone] [facility] Left shoulder (chief complaint) Presence of left artificial shoulder joint [address] [place] [place] [address], [facility] [address], [place], [place], [id number] , . tel:[phone] Referring Provider: Earnest Lakhani, [address] [place] [address] [address], [place], [address] . tel:[phone] Office/outpa tient visit,est, [facility], [address] [address], [place], [place], [id number], [place] tel:[phone] [facility] New Shoulder (chief complaint) Pain in right shoulderPresence of left artificial shoulder jointPrimary osteoarthritis, right shoulder 2 [place]. [address] [facility], [place] [address], [place], [place], [id number] , [place]. tel:[phone] Referring Provider: Earnest Lakhani, [address] [facility] [address] [facility], [place], [address] . tel:[phone] [facility], [facility] [address], [place], [place], [id number], [place] tel:[phone] [facility] Left shoulder (chief complaint) Presence of left artificial shoulder joint 2 [place]. [address] [facility], [place] [address], [place], [place], [id number] , [place]. tel:[phone] Referring Provider: Earnest Lakhani, [address] [facility] [address] [facility], [place], [address] . tel:[phone] Office/outpa tient visit,new, [facility], [address] [address], [place], [place], [id number], [place] [phone] [facility] Left Shoulder Pain Pain In Rt Shoulder Also (chief complaint) Primary osteoarthritis, left shoulder 2 [place]. [address] [facility], [facility] [address], [place], [place], [id number] , [place]. tel:[phone] Referring Provider: Earnest Lakhani, [address] [address], [place], [address] . tel:[phone] Family History Family Member Type Diagnosis Age [...] tion(s) [place] Part [place] MB [id number] Annia [employer] Marc wayne [facility] [id number] Social History Type Description Quantity Date Captured [...]
--- OUTSIDE RECORDS SUMMARY | 2025-03-21 01:57 | XMS_ITS | Encounter Summary ---
Author Organization [facility] Address [address] [place] [address] Care Team Providers Care Ditch Tender Name Role Phone Franco Ohara MD Primary Care Provider [phone] Encounter Details Date Type Department Care Team (Late Contact Info) Description 07/15/2019 Chart Note [facility] Radiation Therapy [address] [place] [address] [place] [address] [place] [address] Social History Tobacco Use Types [...] Description 08/09/2025 10:15 AM CDT Office Visit [facility] - [place] [address] [facility] [address] [place] [address] Elias Bryan MD [address] [facility] [address] [place] [address] documented as of this encounter Visit Diagnoses Not on filedocumented in this encounter Care Teams Ditch Tender Relationship Specialty Start Date End Date Franco Ohara MD PCP - General Family Practice 02/25/23 documented as of this encounter
[2025-03-21] MEDS: LACTATED RINGERS 1,000 ML 30 ML IV CONT ×2 (10:30→13:41)
--- NOTE | 2025-03-21 11:25 | WPDANESEPPF ---
Anes - Initial Pre Proc Eval Procedure: Operation Date: 03/21/25 12:00 Proposed Procedures p Left Custom Total Knee Arthroplasty - Isaac Drummond MD Date/Time: 03/21/25 11:25 Surgeon: Isaac Drummond MD Pre Op Diagnosis: Prim O A Lt Knee Patient Data Age: 84 Gender: F Height: 1.65 m Weight: 89.7 kg Last Vital Signs Pulse 76 02/28/25 10:33 Resp 16 02/28/25 10:33 BP 133/66 02/28/25 10:33 Pulse Ox 100 02/28/25 10:33 Allergies Allergy/AdvReac Type Severity Reaction Status Date / Time adhesive tape Allergy Mild RASH Verified 02/28/25 10:07 aspirin Allergy Mild HIVES Verified 02/28/25 10:07 naproxen Allergy Mild HIVES Verified 02/28/25 10:07 avocado Allergy Unknown feel like Verified 02/28/25 10:07 having flu egg Allergy Unknown Hives Verified 02/28/25 10:07 ibuprofen Allergy Unknown Hives Verified 02/28/25 10:07 egg based AdvReac Intermediate Gastrointestinal Uncoded 02/28/25 10:07 Upset Home Medications ?Medication ?Instructions ?Recorded ?Confirmed ?Type calcium carbonate 600 mg PO DAILY 09/29/19 02/28/25 History cranberry concentrate-ascorbic 1 cap PO DAILY 09/29/19 02/28/25 History acid 4,200 mg-20 mg capsule multivitamin 1 tablet PO DAILY 09/29/19 02/28/25 History omega-3 fatty acids 1,000 mg 1,000 mg PO DAILY 09/29/19 02/28/25 History capsule (Fish Oil Concentrate) vitamin B complex 1 tablet PO DAILY 09/29/19 02/28/25 History biotin 5 mg capsule 5 mg PO DAILY 03/25/23 02/28/25 History glucosamine 1 tablet PO DAILY 05/25/24 02/28/25 History acetaminophen 650 mg 1,300 mg PO DAILY PRN Pain 07/16/24 02/28/25 History tablet,extended release (Tylenol 8 Hour) polyethylene glycol 3350 17 gram See Rx Instructions .Route 07/16/24 02/28/25 History oral powder packet (Miralax) .COMPLEX PRN Constipation vit C,R-Lq-rbmwez-lutein-zeaxan 60 1 cap PO DAILY 07/16/24 02/28/25 History mg-13.5 mg-15 mg-2 mg-6 mg capsule (Healthy Eyes Lutein-Zeaxanthin) atorvastatin 40 mg tablet See Rx Instructions .Route 11/30/24 02/28/25 Rx .COMPLEX #90 tabs ipratropium bromide 42 mcg (0.06 2 spray intranasal TID #15 mL 11/30/24 02/28/25 Rx %) nasal spray lisinopril 20 mg tablet See Rx Instructions .Route 11/30/24 02/28/25 Rx .COMPLEX #90 tabs montelukast 10 mg tablet 10 mg PO DAILY #90 tabs 11/30/24 02/28/25 Rx omeprazole 40 mg capsule,delayed 40 mg PO DAILY #90 caps 11/30/24 02/28/25 Rx release cyclobenzaprine 5 mg tablet See Rx Instructions .Route 02/14/25 02/28/25 Rx .COMPLEX #90 tabs cholecalciferol (vitamin D3) 25 25 mcg PO DAILY 02/28/25 02/28/25 History mcg (1,000 unit) capsule (Vitamin D3) fluticasone propionate 50 2 spray intranasal DAILY PRN 02/28/25 02/28/25 History mcg/actuation nasal allergy symptoms spray,suspension (24 Hour Allergy Relief) Patient hx anesthesia problems: none Family hx anesthesia problems: none Results Review: All pre-operative results and documents have been reviewed as part of the pre-operative evaluation. [facility] Past Medical History Medical History History of esophageal dilatation Degenerative arthritis of knee, bilateral Dry eye Primary osteoarthritis, left shoulder Non-Hodgkin lymphoma 2019 Arthritis Essential hypertension KELLY (obstructive sleep apnea) Obesity (BMI 30-39.9) Osteopenia GERD (gastroesophageal reflux disease) Hyperlipidemia Mild episode of recurrent major depressive disorder Surgical History Surgical History History of tonsillectomy History of surgical removal of ganglion cyst History of neck surgery tumor removed from back of neck History of left shoulder replacement [facility] History of sinus surgery History of arthroscopy of left knee Family History Family History Father Family history of osteoporosis Family history of hearing loss CHF (congestive heart failure) Mother Family history of osteoporosis Hypertension Asthma Cerebrovascular accident Family history of hearing loss Social History Social History Social History: Lives with sister. Retired. Smoking status: Never smoker Second hand tobacco smoke exposure: No Alcohol intake: current Drinks per week: 2 Alcohol use details: WINE Substance use: never Substance use type: does not use Do You Feel Safe in your Home?: Yes Lack of Transportation: No Lack of Food: Never True Current Housing: Decline to Answer Concerned About Future Housing: Decline to Answer Difficulty Paying Gas/Electric Bills: Decline to Answer Difficulty Paying for Meds: Decline to Answer Currently Unemployed: Decline to Answer Education: Trade/Vocational Certificate Difficulty w/ Childcare or Family Care: No Living arrangements: with friend(s) Additional living arrangements comments: friend Occupation/Education: retired Gender identity (if verbalized by the patient): Female Spiritual care concerns: No Anes - Eval Final PreProcedure Day of Procedure 03/21/25 11:25 Patient weight: obese Heart: regular rate and rhythm Lungs: clear to auscultation Airway: Mallampati scale class II Neurological: alert and oriented Last oral intake: >/= 8 hours ASA classification: III Emergent: no Anesthetic plan: proceed Anesthesia type and monitoring: general LMA and standard monitoring Results Review: All pre-operative results and documents have been reviewed as part of the pre-operative evaluation. Informed Consent: The patient's anesthetic plan and its attendant risks and benefits were discussed with the patient/family/POA. Questions were solicited and answers provided to the satisfaction of the patient/family/POA.
[2025-03-21] MEDS: ACETAMINOPHEN 500 MG TABLET 1000 MG PO (11:30)
[2025-03-21] MEDS: TRANEXAMIC ACID 1,000MG/ISO100 1,000 MG/100 ML BAG 200 MG IVPB (11:30)
--- NOTE | 2025-03-21 12:01 | WPDHPUPDATE1 ---
History and Physical Update Update Date/Time: 03/21/25 12:01 History and Physical has been reviewed, including an updated exam of the patient. There are NO changes in the patient's condition. Risks, benefits, and alternatives have been discussed and questions answered. Patient agrees to proceed with procedure.
[2025-03-21] MEDS: ceFAZolin 2 GM/D5W 50 ML 2 GM/50 ML BAG IVPB ×2 (12:12→21:05)
[2025-03-21] MEDS: SODIUM CHLORIDE 0.9% IV 38.7 ML, MORPHINE SULFATE INJ (*CRX) 2 MG, ROPivacaine HCL 1% 2... INFILTRATE (12:40)
--- NOTE | 2025-03-21 13:44 | W.PM.PROC2 ---
Procedure Note - Detailed Date of Procedure 03/21/25 Pre-op Diagnosis Right knee degenerative arthritis. Post-op Diagnosis Same Procedure Performed Total knee arthroplasty, custom right. Surgeon Isaac Drummond MD Anesthesia General Description of Procedure Preoperative antibiotics were given. The limb was prepped and draped in the usual sterile fashion with a well-padded tourniquet high on the thigh. The limb was exsanguinated and the tourniquet inflated to 300 mmHg. A longitudinal incision was created just medial to the patella. A trivector approach to the knee was performed. Arthrotomy was taken down through the joint capsule. No significant releases were initially taken. The femur was exposed and the F1 jig was applied. The coring tool was used to remove the cartilage for the F2 jig to sit flush with the bone. The jig was pinned and the distal cut carefully taken. Caliper measurements confirmed appropriate bony resections according to the preoperative templated plan. The F4 cutting jig for the femur was applied, at the standard rotation. The AP and anterior chamfer cuts were taken. The F5 jig was applied and the posterior chamfer cuts were taken. The tibia was prepared using the T1 jig, after removing cartilage for the jig contact points. Proper alignment was checked with the alignment ashley. The tibia was cut using the T1u guide. Gap balancing was performed. Gap measurements were taken and the knee was trialed. Excellent alignment and soft tissue balancing was confirmed. The posterior cruciate ligament was recessed along the proximal tibia. A lateral facetectomy was performed. Meniscal remnants were removed. The trial components were assembled. Excellent range of motion and proper soft tissue balancing were confirmed throughout the full range of motion. Patellar tracking was excellent. The knee was copiously irrigated periodically throughout the procedure. The real implants were cemented into position. Excess cement was carefully removed. The wound was closed in layers with interrupted #1 Vicryl suture, 2-0 strata fix suture, 0 strata fix suture, 2-0 strata fix suture. Steri-Strips placed on the skin with the knee flexed. Sterile bulky dressing applied. The patient was brought to the recovery room in stable condition. There were no complications. Implants Conformis Custom total knee arthroplasty. Cemented. Cruciate retaining. 6A insert. Estimated Blood Loss 50 Drains No Complications No immediate complications Condition Stable Disposition PACU [facility] Billing Surgery - Charge Forward: Surgery Billing
[2025-03-21] MEDS: fentaNYL CITRATE INJ (*CRX) 100 MCG/2 ML VIAL 25 MCG IV PUSH ×8 (13:48→15:04)
--- NOTE | 2025-03-21 15:27 | ADMGEN ---
This patient, Kate Ryder, was admitted to [facility] Surg Room 301-01. Patient/family oriented to hospital policies and general routines including ID bracelet, bed and alarms, visiting hours, pain management, procedures, bathroom and other care routines, personal items, smoking policy, room service/diet, and visiting hours. Information on how to activate the Rapid Response Team has been discussed. Patient/Family are encouraged to report perceived risks to care and to ask questions if they do not understand what they are told or what they should do.
[2025-03-21] MEDS: ONDANSETRON INJ 4 MG/2 ML VIAL IV PUSH (15:50)
[2025-03-21] MEDS: ACETAMINOPHEN 325 MG TABLET 650 MG PO (17:15)
[2025-03-21] MEDS: predniSONE 5 MG TABLET PO (17:15)
[2025-03-21] MEDS: SENNA/DOCUSATE SODIUM TABLET 2 TAB PO (17:16)
[2025-03-21] MEDS: oxyCODONE/ACETAMINOPHEN (*CRX) 10-325 MG TABLET 1 TAB PO (18:20)
[2025-03-21] MEDS: CYCLOBENZAPRINE HCL 10 MG TABLET PO (18:20)
[2025-03-21] MEDS: traMADol HCL (*CRX) 50 MG TABLET PO (21:05)
[2025-03-21] MEDS: FAMOTIDINE 20 MG TABLET PO (21:06)
[2025-03-21] MEDS: PANTOPRAZOLE 40 MG TABLET PO (21:06)
[2025-03-21] MEDS: IPRATROPIUM NASAL SPRAY 0.06% 15 ML BOTTLE 2 SPRAY NASAL (21:06)
[2025-03-22 00:59] VITALS: BP 134/70; PULSE 88; RESP 18; TEMP 37; O2SAT 98
[2025-03-22] MEDS: ceFAZolin 2 GM/D5W 50 ML 2 GM/50 ML BAG IVPB ×2 (04:21→11:23)
[2025-03-22 04:59] VITALS: BP 123/66; PULSE 77; RESP 16; TEMP 36.9; O2SAT 99
[2025-03-22 05:35] LABS: Basophils Percent Auto 0.4 % (0.2-1.2); Eosinophils Absolute Auto 0.1 K/mm3 (0-0.3); Eosinophils Percent Auto 0.6 % (0-4.4); Hematocrit 34.8 % (37.0-47.0); Hemoglobin 11.5 g/dL (12.0-15.0); Immature Granulocyte Absolute 0.03 K/mm3 (0.00-0.031); Immature Granulocyte Percent A 0.3 % (0-0.5); Lymphocytes Absolute Auto 1.32 K/mm3 (0.9-3.2); Lymphocytes Percent Auto 13.6 % (18.3-44.2); Mean Corpuscular Volume 87.7 fl (80-100); Mean Platelet Volume 9.3 fl (7.4-10.4); Monocytes Absolute Auto 0.9 K/mm3 (0.1-0.6); Monocytes Percent Auto 9.2 % (2.6-8.5); Neutrophils Absolute Auto 7.4 K/mm3 (1.3-6.7); Neutrophils Percent Auto 75.9 % (45.5-73.1); Platelet Count Result 229 k/mm3 (150-375); Red Blood Count 3.97 M/mm3 (4.2-5.4); Red Cell Distribution Width 13.2 % (11.5-14.5); White Blood Count 9.7 K/mm3 (4.5-10.0)
[2025-03-22 05:48] LABS: Anion Gap 5 mmol/L (4-12); Blood Urea Nitrogen 12 mg/dL (7-17); Calcium 8.8 mg/dL (8.4-10.2); Carbon Dioxide 26 mmol/L (22-30); Chloride 101 mmol/L (98-107); Estimated CRCL calculation 61 ml/min; Estimated Glomerular Filt Rate > 60; Glucose 134 mg/dL (65-110); Potassium 3.7 mmol/L (3.4-5.0); Sodium 132 mmol/L (137-145)
[2025-03-22] MEDS: oxyCODONE/ACETAMINOPHEN (*CRX) 5-325 MG TABLET 1 TABLET PO ×2 (07:43→11:23)
[2025-03-22 08:00] VITALS: BP 120/58; PULSE 80; RESP 16; TEMP 36.1; O2SAT 99
[2025-03-22] MEDS: ATORVASTATIN 40 MG TABLET BY MOUTH (08:22)
[2025-03-22] MEDS: MONTELUKAST SODIUM 10 MG TABLET PO (08:22)
[2025-03-22] MEDS: FAMOTIDINE 20 MG TABLET PO (08:22)
[2025-03-22] MEDS: lisinopriL 20 MG TABLET BY MOUTH (08:22)
[2025-03-22] MEDS: PANTOPRAZOLE 40 MG TABLET PO (08:22)
[2025-03-22 08:37] VITALS: O2SAT 99
[2025-03-22 11:54] VITALS: BP 123/60; PULSE 79; RESP 16; TEMP 36.2; O2SAT 95
== END 2025-03-22 13:22 | disposition home or self-care (01) ==
LOC: ANHSURGERY 11:51 → ANH3MEDSUR 15:16
PROVIDERS: Physician Assistant Surgical; PCP Family Medicine; Visit Provider Orthopaedic Surgery
PROC: (CPT 27447; principal; 2025-03-21 12:00)
DX: M17.12 Unilateral primary osteoarthritis, left knee (principal); I10 Essential (primary) hypertension; E78.5 Hyperlipidemia, unspecified; G47.33 Obstructive sleep apnea (adult) (pediatric); E66.9 Obesity, unspecified; Z68.32 Body mass index [BMI] 32.0-32.9, adult
CPT/HCPCS: 27447; 36415; 73560; 80048; 85025; 86850; 86900; 86901; 97110; 97161; 97165; 97530; 97535; A9270; C1713; C1776; J0171; J0690; J2270; J2405; J2704; J2795; J3010; J7120; J7512

== ENCOUNTER 2025-04-27 15:14 | Outpatient (CLI) | payer MEDICARE, SELFPAY ==
--- NOTE | ~2025-04-27 | MM_ITS ---
EXAMINATION: MM screening morena BI w calvin HISTORY: Screening TECHNIQUE: Craniocaudal and mediolateral oblique 3-D tomosynthesis images were obtained and synthetic 2-D images were generated. CAD analysis was submitted and interpreted. COMPARISON: Comparison to multiple prior studies sequentially, with oldest reviewed study dated 10/2017. BREAST PARENCHYMAL COMPOSITION: Not Dense: The breasts are almost entirely fatty. FINDINGS: There is no evidence of suspicious mass, calcification, or architectural distortion to sugg est malignancy in either breast. There has been no suspicious interval change. IMPRESSION: 1. No mammographic evidence of malignancy. 2. Recommend routine screening mammography in one year. BI-RADS Category 1: Negative Reviewed, dictated and finalized at location B.
--- OUTSIDE RECORDS SUMMARY | 2025-04-27 15:18 | XMS_ITS | Continuity of Care Document ---
Author Organization [facility] Address [address] [place] [address] Phone Care Team Providers Care Retail Worker Name Role Phone Earnest Fortune MD Unavailable [...] Office/outpa tient visit,est, low [facility], [address] [place], [place] [address], [id number], tel:[phone] [facility] Left shoulder (chief complaint) Presence of left artificial shoulder joint 3 Tong [place]. [address] [place] [address], [facility] [address], [place], [place], [id number] , . tel:[phone] Referring Provider: Earnest Lakhani, [address] [place] [address] [address], [place], [address] . tel:[phone] Office/outpa tient visit,est, [place] [facility] [place] [place] [facility], [address] [address], [place], [place], [id number], [place] tel:[phone] [facility] New Shoulder (chief complaint) Pain in right shoulderPresence of left artificial shoulder jointPrimary osteoarthritis, right shoulder 2 Tong [place]. [address] [address], [place], [place], [id number] , [place]. tel:[phone] Referring Provider: Earnest Lakhani, [address] [facility], [place], [address] . tel:[phone] [facility], [facility] [address], [place], [place], [id number], [place] tel:[phone] [facility] Left shoulder (chief complaint) Presence of left artificial shoulder joint 2 Tong [place]. [address] [address], [place], [place], [id number] , [place]. tel:[phone] Referring Provider: Earnest Lakhani, [address] [facility], [place], [address] . tel:[phone] Office/outpa tient visit,new, [place] [facility] [place] [place] [facility], [address] [address], [place], [place], [id number], [place] [phone] [facility] Left Shoulder Pain Pain In Rt Shoulder Also (chief complaint) Primary osteoarthritis, left shoulder 2 Tong [place]. [address] [facility], [facility] [address], [place], [place], [id number] , [place]. tel:[phone] Referring Provider: Earnest Lakhani, [address] [address], [place], [address] . tel:[phone] Family History Family Member Type Diagnosis Age [...] Provider Payers Payer name Insurance type Covered green party ID Authoriza tion(s) [place] W[place] Part B MB [id number] Annia [employer] Marc wayne [facility] [id number] Social History Type Description Quantity Date Captured [...]
--- OUTSIDE RECORDS SUMMARY | 2025-04-27 15:18 | XMS_ITS | Encounter Summary ---
Author Organization [facility] Address [address] [place] [address] Care Team Providers Care Acute Specialist Name Role Phone Franco Ohara MD Primary Care Provider [phone] Encounter Details Date Type Department Care Team (Late Contact Info) Description 07/15/2019 Chart Note [facility] Radiation Therapy [address] [place] [address] [place] [address] [place] [address] Social History Tobacco Use Types [...] Description 08/09/2025 10:15 AM CDT Office Visit [facility] Oncology and Hematology - [place] [address] [facility] [address] [place] [address] Elias Bryan MD [address] [facility] [address] [place] [address] documented as of this encounter Visit Diagnoses Not on filedocumented in this encounter Care Teams Acute Specialist Relationship Specialty Start Date End Date Franco Ohara MD PCP - General Family Practice 02/25/23 documented as of this encounter
--- OUTSIDE RECORDS SUMMARY | 2025-04-27 15:18 | XMS_ITS | Encounter Summary ---
Author Organization [facility] Address [address] [place] [address] Care Team Providers Care Icing And Glaze Maker Name Role Phone Franco Ohara MD Primary Care Provider [phone] Encounter Details Date Type Department Care Team (Late st Contact Info) Description 04/26/2025 External Device Data [facility] ABSTRACTION Provider, Abstract NO ADDRESS ON FILE Social History Tobacco Use Types Packs/Day Years [...] Center Oncology and Hematology - [place] [address] [facility] [address] [place] [address] Elias Bryan MD [address] [facility] [address] [place] [address] documented as of this encounter Visit Diagnoses Not on filedocumented in this encounter Care Teams Icing And Glaze Maker Relationship Specialty Start Date End Date Franco Ohara MD PCP - General Family Practice 02/25/23 documented as of this encounter
--- OUTSIDE RECORDS SUMMARY | 2025-04-27 15:18 | XMS_ITS | Clinical Summary ---
Author Organization [facility] Address [address] [place] [address] Care Team Providers Care Beam Racker Name Role Phone Macy Aguayo MD Primary Care Provider [phone] Source Comments [facility] [employer],non-owned Affiliates and Associated Physician Practices is amultiple site organization consisting of ambulatory clinics and hospital sitesin [place], [place], [place] and [place]. This disclosure is being madepursuant to the Care Everywhere program and may not contain all information available regarding this patient. Last updated 18.[facility] [employer] Social History Tobacco Use Types Packs/Day Years [...] season) 2024 DEPRESSION SCREENING 10/13/2024 INFLUENZA VACCINE (#1) 2025 HEPATITIS B VACCINE Aged Out No [...] complete this topic Insurance MEDICARE Care Teams Beam Racker Relationship Specialty Start Date End Date Macy Aguayo MD [facility] [place] [address] PCP - General 05/12/19
--- OUTSIDE RECORDS SUMMARY | 2025-04-27 15:18 | XMS_ITS | Encounter Summary ---
Author Organization [facility] Address [address] [place] [address] Care Team Providers Care Nuclear Medicine Pet Ct Technologist Name Role Phone Macy Aguayo MD Primary Care Provider [phone] Encounter Details Date Type Department Care Team (Late st Contact Info) Description 06/11/2019 Lab Requisition [facility] Care Pathology Lab [address] [place] [address] Ubaldo Ugalde MD [address] [place] [address] Social History Tobacco Use Types Packs/Day [...] AM CDT) Case Report Flow Cytometry Case: [id number] Authorizing Provider: Ubaldo Ugalde MD Collected: 06/11/2019 09:21 AM Ordering Location: [facility] Care Pathology Lab Received: 06/11/2019 12:11 [...] flow cytometry specimen is reviewed for quality engineering manager purposes. Overall, the bone marrow aspirate specimen shows no evidence of involvement by non-Hodgkin lymphoma or a high-grade myeloid neoplasm. Correlation with clinical findings, concurrent bone marrow core biopsy, and relevant cytogenetic/molecu lar studies is required. 06/11/2019 3:49 PM [facility] PATHOLOGY LAB Flow Cytometry Results Differential Result Comment Flow Cell Count /uL 33,000 Total Viability % 92.0 Lymphocytes % 14 Dim CD45 Region % 2 Monocytes % 6 Granulocytes % 77 06/11/2019 3:49 PM CDT [facility] PATHOLOGY LAB Reason for test LARGE B-CELL LYMPHOMA 06/11/2019 3:49 PM [facility] PATH[facility] Client Specimen ID # [id number] 06/11/2019 3:49 PM [facility] PATHOLOG[facility] Number of markers 10 were performed. A-1 Flow CD3 A-3 Flow CD10 A-5 Flow CD20 A-6 Flow CD23 A-2 Flow CD5 A-4 Flow CD19 A-7 Flow CD34 A-8 Flow CD45 A-9 Menlo+CD19+ A-10 Lambda+CD19+ 06/11/2019 3:49 PM [facility] Disclaimer Test performed at [facility], [address] [place] [address], [address]. *The established laboratory minimum viability is 70%. [...] complexity clinical testing. 06/11/2019 3:49 PM CDT [facility] PATHOLOGY LAB Embedded Images 3:49 PM CDT [facility] PATHOLOGY LAB Pathology/Cytolo gy BONE MARROW SPECIMEN / Unknown 06/11/2019 9:21 AM CDT 06/11/2019 12:11 PM CDT Ubaldo Ugalde MD LAB - PATHOLOGY/CYTOLOGY ORDER DESTINI Final Result [facility] PATHOLOGY LAB [address] [phone] documented in this encounter Visit Diagnoses Not on filedocumented in this encounter Care Teams Nuclear Medicine Pet Ct Technologist Relationship Specialty Start Date End Date Macy Aguayo MD [facility] [place] [address] PCP - General 05/12/19 documented as of this encounter
--- OUTSIDE RECORDS SUMMARY | 2025-04-27 15:18 | XMS_ITS | Clinical Summary ---
Author Organization [facility] Address [address] [place] [address] Care Team Providers Care Manager Financial Reporting Name Role Phone Franco Ohara MD Primary Care Provider [phone] Allergies Active Allergy Reactions Criticality Noted Date [...] Capsule Take 1 Tablet by mouth. Active [place]-3 Fatty Acids 1,250 mg Capsule Take 1,200 mg by mouth. Active lisinopriL (PRINIVIL) 20 mg tablet 12/22/2020 Active vit B cmplx 3-FA-Vit C-Biotin (RENAVITE-RX RX) 1-60-300 mg-mg-mcg Tablet Take 1 Tablet by mouth daily. Active Fish Oil-[place]-3 Fatty Acids 360-1,200 mg Capsule Take 1 Capsule by mouth. Active omeprazole (PriLOSEC) 40 mg Capsule, Delayed Release(E.C.) Take 40 mg by mouth daily. 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/02/2019 Encounters Date Type Department Care Team Description 04/26/2025 External Device Data STL ABSTRACTION Provider, Abstract 04/05/2025 External Device Data STL ABSTRACTION Provider, Abstract 03/15/2025 External Device Data STL ABSTRACTION Provider, [...] Comments Blood Pressure 136/76 11/08/2024 11:11 AM RN PEDIATRIC Pulse 86 11/08/2024 11:02 AM RN PEDIATRIC Temperature 36.8 C (98.3 F) 11/08/2024 11:02 AM RN PEDIATRIC Respiratory Rate 15 11/08/2024 11:02 AM RN PEDIATRIC Oxygen Saturation 97% 11/08/2024 11:02 AM RN PEDIATRIC Inhaled Oxygen Concentration - - Weight 90.4 kg (199 lb 6.4 oz) 11/08/2024 11:02 AM RN PEDIATRIC Height 167.6 cm (5' 6) 02/19/2022 9:52 AM CDT Body Mass Index 32.18 02/19/2022 9:52 AM CDT Plan of Treatment Upcoming Encounters Date Type Department Care Team (Late st Contact Info) Description 08/09/2025 10:15 AM CDT Office Visit [facility] Oncology and Hematology - [place] [address] [facility] [address] [place] [address] Elias Bryan MD [address] [facility] [address] [place] [address] Health Maintenance Due Date Last Done Comments DTAP/TDAP/TD VACCINES (1 - Tdap) 1959 PNEUMOCOCCAL VACCINE 50+ YEA RS (1 of 2 - PCV) 1961 ZOSTER VACCINE (1 of 2) 1961 RSV VACCINE (60+ or ) (1 - 1-dose 75+ series) 2017 COVID-19 Vaccine (3 - Modern a risk series) 01/20/2021 12/23/2020, 11/25/2020 INFLUENZA VACCINE (#1) 2025 OSTEOPOROSIS SCREENING 08/27/2028 , 08/16/2020, 02/10/2018, Additional history exists Insurance MEDICARE PART A AND B [facility] SUPP [facility] SUPP MEDICARE PART A AND B Care Teams Manager Financial Reporting Relationship Specialty Start Date End Date Franco Ohara MD PCP - General Family Practice 02/25/23
--- OUTSIDE RECORDS SUMMARY | 2025-04-27 15:18 | XMS_ITS | Encounter Summary ---
Author Organization [facility] Address [address] [facility] [place] [address] Care Team Providers Care Lead Miner Name Role Phone Macy Aguayo MD Primary Care Provider [phone] Encounter Details Date Type Department Care Team (Late st Contact Info) Description 05/12/2019 Lab Requisition [facility] Care Pathology Lab [address] [place] [address] Ubaldo Ugalde MD [address] [place] [address] Social History Tobacco Use Types Packs/Day [...] CDT) Case Report Surgical Pathology Report Case: [id number] Authorizing Provider: Ubaldo Ugalde MD Collected: 05/10/2019 10:31 AM Pathologist: Roxanna Mason MD Received: 05/12/2019 10:31 AM Specimen: Lymph Node Biopsy, [id number] 05/13/2019 12:40 PM CDT [facility] [...] is performed on the tissue in the [facility] Department of Pathology to further characterize this [...] cores of the tissue. Concurrent flow cytometry ([facility] Oncology, [id number]) describes two cell populations. The first population, comprising 29% of the sample, is a OO13-zdnszlau monoclonal B-cell population. The second population, estimated [...] biopsy is advised. KR 05/13/2019 12:40 PM [facility] PATHOLOGY LAB Clinical History Left inguinal lymphadenopathy. 05/13/2019 12:40 PM [facility] PATHOLOGY LAB Materials Received Received are 2 slides and 1 block labeled as [id number] along with the outside pathology report. [place] [address]. All materials are returned to the referring institution, along with a copy of our final report. 05/13/2019 12:40 PM [facility] PATHOLOGY LAB Disclaimer The performance characteristics of all immunohistochemical and indirect immunofluorescence stains (if any) cited in this report were determined by the Histopathology Laboratory of [facility]. Some of these tests were developed [...] attending (teaching) pathologist. 05/13/2019 12:40 PM CDT [facility] PATHOLOGY LAB Embedded Images 05/13/2019 12:40 PM T [facility] PATHOLOGY LAB Pathology/Cytolo gy BIOPSY OF LYMPH NODE / Unknown 05/10/2019 10:31 AM CDT 05/12/2019 10:31 AM CDT Ubaldo Ugalde MD LAB - PATHOLOGY/CYTOLOGY ORDER DESTINI Final Result [facility] PATHOLOGY LAB [address] [phone] documented in this encounter Visit Diagnoses Not on filedocumented in this encounter Care Teams Lead Miner Relationship Specialty Start Date End Date Macy Aguayo MD [address] [place] [address] [address] [place] [address] PCP - General 05/12/19 documented as of this encounter
--- OUTSIDE RECORDS SUMMARY | 2025-04-27 15:18 | XMS_ITS | Encounter Summary ---
Author Organization [facility] Address [address] [facility] [place] [address] Care Team Providers Care Environment Friendly Landscape Designer Name Role Phone Macy Aguayo MD Primary Care Provider [phone] Encounter Details Date Type Department Care Team (Late st Contact Info) Description 06/16/2019 Lab Requisition [facility] Care Pathology Lab [address] [place] [address] Ubaldo Ugalde MD [address] [place] [address] Social History Tobacco Use Types Packs/Day [...] Report Bone Marrow Patholog y Report Case: [id number] Authorizing Provider: Ubaldo Ugalde MD Collected: 06/11/2019 08:19 AM Ordering Location: [facility] Care Pathology Lab Received: 06/16/2019 01:06 PM [...] - See comment. 06/17/2019 11:21 AM [facility] PATHOLOGY LAB at 1121 CDT AP Comment Overall, the bone marrow specimen is normocellular for age with maturing trilineage hematopoiesis and no evidence of lymphoma, a high-grade myeloid neoplasm, or significant dyspoiesis. Concurrent bone marrow flow cytometry ([id number]) demonstrates no evidence of non-Hodgkin lymphoma or a high-grade myeloid neoplasm. Correlation with clinical findings and relevant cytogenetic/molecular testing is required. AQ/SEKOU 06/17/2019 11:21 AM [facility] PATHOLOG[facility] LAB Peripheral Smear Description Manual Differential Count (100 cells): 69% neutrophils, 23% lymphocytes, 3% monocytes, 1% eosinophils, and 4% bands. / 100 WBCs. Leukocyte number: normal. Granulocyte morphology: normal. Lymphocyte morphology: normal. Erythrocyte number: normal. Erythrocyte morphology: normocytic. Anisopoikilocytosis: not signifcant. Polychromasia: not significant. Platelet number: normal. Platelet morphology: normal. 06/17/2019 11:21 AM [facility] PATH[facility] Bone Marrow Aspirate Differential [...] no ring sideroblasts. 06/17/2019 11:21 AM [facility] PATHOLOG[facility] LAB Bone Marrow Core Biopsy [...] shows adequate storage iron Immunohistochemical staining at [facility] pathology with appropriate controls are as follows: CD3 and CD20 highlight small lymphoid aggregates composed of mixture of T and B lymphocytes , inconclusive for involvement by lymphoma. 06/17/2019 11:21 AM [facility] PATHOLOG[facility] Clinical History 06/17/2019 11:21 AM [facility] PATHOLOG[facility] Materials Received Received are 17 slides and 3 blocks labeled as [id number] along with the outside pathology report. [place] [address]. All materials are returned to the referring institution, along with a copy of our final report. 06/17/2019 11:21 AM [facility] PATHOLOG[facility] Disclaimer The performance characteristics of all immunohistochemical and indirect immunofluorescence stains (if any) cited in this report were determined by the Histopathology Laboratory of [facility]. Some of these tests were developed [...] attending (teaching) pathologist. 06/17/2019 11:21 AM [facility] PATHOLOG[facility] LAB Embedded Images 06/17/2019 11:21 AM [facility] PATHOLOG[facility] LAB Pathology/Cytology SPECIMEN FROM BONE [...] LAB - PATHOLOGY/CYTOLOGY ORDER DESTINI Final Result [facility] PATHOLOGY LAB [address] [phone] documented in this encounter Visit Diagnoses Not on filedocumented in this encounter Care Teams Environment Friendly Landscape Designer Relationship Specialty Start Date End Date Macy Aguayo MD [address] [place] [address] [address] [place] [address] PCP - General 05/12/19 documented as of this encounter
== END 2025-04-27 15:15 | disposition home or self-care (01) ==
LOC: ANHIMG 15:15
PROVIDERS: PCP Family Medicine; Visit Provider Family Medicine
DX: Z12.31 Encounter for screening mammogram for malignant neoplasm of breast (principal)
CPT/HCPCS: 77063; 77067

== ENCOUNTER 2025-06-01 10:26 | Outpatient (CLI) | payer MEDICARE, SELFPAY ==
--- OUTSIDE RECORDS SUMMARY | 2023-03-26 08:30 | XMS_ITS | Continuity of Care Document ---
Author Organization [facility] Address [address] [facility] [address] [place] [address] Phone Care Team Providers Care Boiler Cleaner Name Role Phone Earnest Fortune MD Unavailable [...] Office/outpa tient visit,est, low [facility], [address] [place], [place] [address], [id number], tel:[phone] [facility] Left shoulder (chief complaint) Presence of left artificial shoulder joint 3 Tong Tinoco. [address] [place] [address], [facility] [address], [place], [place], [id number] , . tel:[phone] Referring Provider: Earnest Lakhani, [address] [place] [address] [address], [place], [address] . tel:[phone] Office/outpa tient visit,est, [facility], [address] [address], [place], [place], [id number], [place] tel:[phone] [facility] New Shoulder (chief complaint) Pain in right shoulderPresence of left artificial shoulder jointPrimary osteoarthritis, right shoulder 2 Tong Tin[place]. [address] [facility] [address], [place], [place], [id number] , [place]. tel:[phone] Referring Provider: Earnest Lakhani, [address] [facility] [address] [facility], [place], [address] . tel:[phone] [facility], [facility] [address], [place], [place], [id number], [place] tel:[phone] [facility] Left shoulder (chief complaint) Presence of left artificial shoulder joint 2 Tong Tinoco. [address] [facility], [address] [address], [place], [place], [id number] , [place]. tel:[phone] Referring Provider: Earnest Lakhani, [address] [facility] [address] [facility], [place], [address] . tel:[phone] Office/outpa tient visit,new, [facility], [address] [address], [place], [place], [id number], [place] [phone] [facility] Left Shoulder Pain Pain In Rt Shoulder Also (chief complaint) Primary osteoarthritis, left shoulder 2 Tong Tinoco. [address] [facility], [facility] [address], [place], [place], [id number] , [place]. tel:[phone] Referring Provider: Earnest Lakhani, [address] [address], [place], [address] . tel:[phone] Family History Family Member Type Diagnosis Age [...] Provider Payers Payer name Insurance type Covered democrat ID Authoriza tion(s) Medicare [place] WPS Part B MB [id number] Annia Blue Cross Marc wayne [facility] [id number] Social History Type Description Quantity Date Captured [...]
[2025-06-01 10:44] LABS: Hematocrit 39.7 % (37.0-47.0); Hemoglobin 13.2 g/dL (12.0-15.0); Mean Corpuscular HGB Conc 33.2 g/dl (32-36); Mean Corpuscular Hemoglobin 28.9 pg (26-34); Mean Corpuscular Volume 87.1 fl (80-100); Platelet Count Result 294 k/mm3 (150-375); Red Blood Count 4.56 M/mm3 (4.2-5.4); White Blood Count 6.0 K/mm3 (4.5-10.0)
--- OUTSIDE RECORDS SUMMARY | 2025-06-01 10:57 | XMS_ITS | Clinical Summary ---
Author Organization [facility] Address [address] [place] [address] Care Team Providers Care Teacher Adventure Education Name Role Phone Franco Ohara MD Primary Care Provider [phone] Allergies Active Allergy Reactions Criticality Noted Date [...] Capsule Take 1 Tablet by mouth. Active [place]-3 Fatty Acids 1,250 mg Capsule Take 1,200 mg by mouth. Active lisinopriL (PRINIVIL) 20 mg tablet 12/22/2020 Active vit B cmplx 3-FA-Vit C-Biotin (RENAVITE-RX RX) 1-60-300 mg-mg-mcg Tablet Take 1 Tablet by mouth daily. Active Fish Oil-[place]-3 Fatty Acids 360-1,200 mg Capsule Take 1 Capsule by mouth. Active omeprazole (PriLOSEC) 40 mg Capsule, Delayed Release(E.C.) Take 40 mg by mouth daily. 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/02/2019 Encounters Date Type Department Care Team Description 05/31/2025 External Device Data [facility] ABSTRACTION Provider, Abstract 05/17/2025 External Device Data [facility] ABSTRACTION Provider, Abstract 04/27/2025 External Device Data [facility] ABSTRACTION Provider, Abstract 04/26/2025 External Device Data [facility] ABSTRACTION Provider, [...] Comments Blood Pressure 136/76 11/08/2024 11:11 AM SERVICE DISPATCHER Pulse 86 11/08/2024 11:02 AM SERVICE DISPATCHER Temperature 36.8 C (98.3 F) 11/08/2024 11:02 AM SERVICE DISPATCHER Respiratory Rate 15 11/08/2024 11:02 AM SERVICE DISPATCHER Oxygen Saturation 97% 11/08/2024 11:02 AM SERVICE DISPATCHER Inhaled Oxygen Concentration - - Weight 90.4 kg (199 lb 6.4 oz) 11/08/2024 11:02 AM SERVICE DISPATCHER Height 167.6 cm (5' 6) 02/19/2022 9:52 AM CDT Body Mass Index 32.18 02/19/2022 9:52 AM CDT Plan of Treatment Upcoming Encounters Date Type Department Care Team (Late st Contact Info) Description 08/09/2025 10:15 AM CDT Office Visit [facility] Oncology and Hematology - [place] [address] [place] [address] Elias Bryan MD [address] [facility] [address] [place] [address] Health Maintenance Due Date Last Done Comments DTAP/TDAP/TD VACCINES (1 - Tdap) 1959 PNEUMOCOCCAL VACCINE 50+ YEA RS (1 of 2 - PCV) 1961 ZOSTER VACCINE (1 of 2) 1961 RSV VACCINE (60+ or ) (1 - 1-dose 75+ series) 2017 COVID-19 Vaccine (3 - 2023-2 5 season) 2024 12/23/2020, 11/25/2020 INFLUENZA VACCINE (#1) 2025 OSTEOPOROSIS SCREENING 08/27/2028 , 08/16/2020, 02/10/2018, Additional history exists Insurance MEDICARE PART A AND B [facility] SUPP [facility] SUPP MEDICARE PART A AND B Care Teams Teacher Adventure Education Relationship Specialty Start Date End Date Franco Ohara MD PCP - General Family Practice 02/25/23
--- OUTSIDE RECORDS SUMMARY | 2025-06-01 10:57 | XMS_ITS | Clinical Summary ---
Author Organization [facility] Address [id number] [address] Phone Care Team Providers Care Java Application Developer Name Role Phone Macy Aguayo MD Unavailable [phone] Madhu Flaherty DO Unavailable [phone] Macy Aguayo MD Primary Care Provider [...] (MULTIVITAMIN PO) Take by mouth daily. Active [place]-3 Fatty Acids (FISH OIL) 1200 MG Capsule Take 1,200 mg by mouth daily. Active Magnesium 500 MG TabletIndicatio ns:take 3 times a week Take 1 Tab by mouth. Active Selenium 100 MCG Capsule Take 1 Cap by mouth daily. Active Acetylcysteine (D-UFQRUL-N-CYS TEINE PO) Take 300 mg by mouth [...] Immunization (50+ years) (2 of 2 - PCV20 or PCV21) 08/26/2017 08/26/2016 Respiratory Syncytial Virus (RSV) Immunization (Adult) (1 - 1-dose 75+ series) 2017 SARS-COV-2 Immunization ( season) 2024 03/06/2022, 08/28/2021, 12/23/2020, Additional history exists Influenza Immunization (#1) 06/13/202510/2017, 08/17/2017, 08/21/2016, Additional history exists Pneumococcal Immunization [...] age to complete this topic Insurance MEDICARE [facility] Care Teams Java Application Developer Relationship Specialty Start Date End Date Macy Aguayo MD [address] [place] [address] [place] [address] PCP - General Hall Worker 03/06/17 Macy Aguayo MD [address] [place] [address] [place] [address] Hall Worker 11/05/16 Madhu Flaherty DO [address] [place] [address] [place] [address] Consulting Physician Gastroenterology 03/06/17
--- OUTSIDE RECORDS SUMMARY | 2025-06-01 10:57 | XMS_ITS | Encounter Summary ---
Author Organization [facility] Address [address] [place] [address] Care Team Providers Care Tiedown Operator Name Role Phone Franco Ohara MD Primary Care Provider [phone] Encounter Details Date Type Department Care Team (Late Contact Info) Description 07/15/2019 Chart Note [facility] Radiation Therapy [address] [place] [address] [place] [address] [place] [address] Social History Tobacco Use Types [...] Description 08/09/2025 10:15 AM CDT Office Visit [facility] Oncology and Hematology - [place] [address] [facility] [address] [place] [address] Elias Bryan MD [address] [facility] [address] [place] [address] documented as of this encounter Visit Diagnoses Not on filedocumented in this encounter Care Teams Tiedown Operator Relationship Specialty Start Date End Date Franco Ohara MD PCP - General Family Practice 02/25/23 documented as of this encounter
--- OUTSIDE RECORDS SUMMARY | 2025-06-01 10:57 | XMS_ITS | Encounter Summary ---
Author Organization [facility] Address [address] [place] [address] Care Team Providers Care Chart Snatcher Name Role Phone Macy Aguayo MD Primary Care Provider [phone] Encounter Details Date Type Department Care Team (Late st Contact Info) Description 06/11/2019 Lab Requisition [facility] Care Pathology Lab [address] [place] [address] Ubaldo Ugalde MD [address] [place] [address] Social History Tobacco Use Types Packs/Day [...] AM CDT) Case Report Flow Cytometry Case: [id number] Authorizing Provider: Ubaldo Ugalde MD Collected: 06/11/2019 09:21 AM Ordering Location: [facility] Care Pathology Lab Received: 06/11/2019 12:11 PM [...] the flow cytometry specimen is reviewed for manufacturing quality technician purposes. Overall, the bone marrow aspirate specimen shows no evidence of involvement by non-Hodgkin lymphoma or a high-grade myeloid neoplasm. Correlation with clinical findings, concurrent bone marrow core biopsy, and relevant cytogenetic/molecu lar studies is required. 06/11/2019 3:49 PM [facility] PATHOLOGY LAB Flow Cytometry Results Differential Result Comment Flow Cell Count /uL 33,000 Total Viability % 92.0 Lymphocytes % 14 Dim CD45 Region % 2 Monocytes % 6 Granulocytes % 77 06/11/2019 3:49 PM CDT [facility] PATHOLOGY LAB Reason for test LARGE B-CELL LYMPHOMA 06/11/2019 3:49 PM [facility] PATHOLOGY LAB Client Specimen ID # [id number] 06/11/2019 3:49 PM [facility] PATHOLOGY LAB Number of markers 10 were performed. A-1 Flow CD3 A-3 Flow CD10 A-5 Flow CD20 A-6 Flow CD23 A-2 Flow CD5 A-4 Flow CD19 A-7 Flow CD34 A-8 Flow CD45 A-9 [place]+CD19+ A-10 Lambda+CD19+ 06/11/2019 3:49 PM [facility] Disclaimer Test performed at [facility], [address] [place] [address], [id number]. *The established laboratory minimum viability is 70%. [...] complexity clinical testing. 06/11/2019 3:49 PM CDT [facility] PATHOLOGY LAB Embedded Images 3:49 PM CDT [facility] PATHOLOGY LAB Pathology/Cytolo gy BONE MARROW SPECIMEN / Unknown 06/11/2019 9:21 AM CDT 06/11/2019 12:11 PM CDT Ubaldo Ugalde MD LAB - PATHOLOGY/CYTOLOGY ORDER DESTINI Final Result [facility] PATHOLOGY LAB [address] [phone] documented in this encounter Visit Diagnoses Not on filedocumented in this encounter Care Teams Chart Snatcher Relationship Specialty Start Date End Date Macy Aguayo MD [facility] [place] [address] PCP - General 05/12/19 documented as of this encounter
--- OUTSIDE RECORDS SUMMARY | 2025-06-01 10:57 | XMS_ITS | Encounter Summary ---
Author Organization [facility] Address [address] [facility] [place] [address] Care Team Providers Care Crm Marketing Executive Name Role Phone Macy Aguayo MD Primary Care Provider [phone] Encounter Details Date Type Department Care Team (Late st Contact Info) Description 05/12/2019 Lab Requisition [facility] Care Pathology Lab [address] [place] [address] Ubaldo Ugalde MD [address] [place] [address] Social History Tobacco Use Types Packs/Day [...] CDT) Case Report Surgical Pathology Report Case: [id number] Authorizing Provider: Ubaldo Ugalde MD Collected: 05/10/2019 10:31 AM Pathologist: Roxanna Mason MD Received: 05/12/2019 10:31 AM Specimen: Lymph Node Biopsy, [id number] 05/13/2019 12:40 PM CDT [facility] PATH[facility]Y [facility] [...] is performed on the tissue in the [facility] Department of Pathology to further characterize [...] cores of the tissue. Concurrent flow cytometry ([facility] Oncology, [id number]) describes two cell populations. The first population, comprising 29% of the sample, is a ZW59-hnexgoyi monoclonal B-cell population. The second population, estimated [...] biopsy is advised. KR 05/13/2019 12:[address] [facility] PATHOLOGY LAB Clinical History Left inguinal lymphadenopathy. 05/13/2019 12:[address] [facility] PATHOLOGY LAB Materials Received Received are 2 slides and 1 block labeled as [id number] along with the outside pathology report. [place] [address]. All materials are returned to the referring institution, along with a copy of our final report. 05/13/2019 12:[address] [facility] PATHOLOGY LAB Disclaimer The performance characteristics of all immunohistochemical and indirect immunofluorescence stains (if any) cited in this report were determined by the Histopathology Laboratory of [facility]. Some of these tests were [...] (teaching) pathologist. 05/13/2019 12:40 PM CDT [facility] PATHOLOGY LAB Embedded Images 05/13/2019 12:40 PM T [facility] PATHOLOGY LAB Pathology/Cytolo gy BIOPSY OF LYMPH NODE / Unknown 05/10/2019 10:31 AM CDT 05/12/2019 10:31 AM CDT Ubaldo Ugalde MD LAB - PATHOLOGY/CYTOLOGY ORDER DESTINI Final Result [facility] PATHOLOGY LAB [address] [phone] documented in this encounter Visit Diagnoses Not on filedocumented in this encounter Care Teams Crm Marketing Executive Relationship Specialty Start Date End Date Macy Aguayo MD [address] [place] [address] [address] [place] [id number] PCP - General 05/12/19 documented as of this encounter
--- OUTSIDE RECORDS SUMMARY | 2025-06-01 10:57 | XMS_ITS | Encounter Summary ---
Author Organization [facility] Address [address] [facility] [place] [address] Care Team Providers Care Commissioner Of Relocation Services Name Role Phone Macy Aguayo MD Primary Care Provider [phone] Encounter Details Date Type Department Care Team (Late st Contact Info) Description 06/16/2019 Lab Requisition [facility] Care Pathology Lab [address] [place] [address] Ubaldo Ugalde MD [address] [place] [address] Social History Tobacco Use Types Packs/Day [...] Report Bone Marrow Patholog y Report Case: [id number] Authorizing Provider: Ubaldo Ugalde MD Collected: 06/11/2019 08:19 AM Ordering Location: [facility] Care Pathology Lab Received: 06/16/2019 01:06 [...] count. - See comment. 06/17/2019 11:[address] [facility] PATHOLOGY LAB at 1121 CDT AP Comment Overall, the bone marrow specimen is normocellular for age with maturing trilineage hematopoiesis and no evidence of lymphoma, a high-grade myeloid neoplasm, or significant dyspoiesis. Concurrent bone marrow flow cytometry ([id number]) demonstrates no evidence of non-Hodgkin lymphoma or a high-grade myeloid neoplasm. Correlation with clinical findings and relevant cytogenetic/molecular testing is required. AQ/SEKOU 06/17/2019 11:[address] [facility] PATHOLOGY LAB Peripheral Smear Description Manual Differential Count (100 cells): 69% neutrophils, 23% lymphocytes, 3% monocytes, 1% eosinophils, and 4% bands. / 100 WBCs. Leukocyte number: normal. Granulocyte morphology: normal. Lymphocyte morphology: normal. Erythrocyte number: normal. Erythrocyte morphology: normocytic. Anisopoikilocytosis: not signifcant. Polychromasia: not significant. Platelet number: normal. Platelet morphology: normal. 06/17/2019 11:[address] [facility] PATHOLOGY LAB Bone Marrow Aspirate Differential [...] stain): no ring sideroblasts. 06/17/2019 11:[address] [facility] PATHOLOGY LAB Bone Marrow Core Biopsy [...] adequate storage iron Immunohistochemical staining at [facility] pathology with appropriate controls are as follows: CD3 and CD20 highlight small lymphoid aggregates composed of mixture of T and B lymphocytes , inconclusive for involvement by lymphoma. 06/17/2019 11:[address] [facility] PATHOLOGY LAB Clinical History 06/17/2019 11:[address] [facility] PATHOLOGY LAB Materials Received Received are 17 slides and 3 blocks labeled as [id number] along with the outside pathology report. [place] [address]. All materials are returned to the referring institution, along with a copy of our final report. 06/17/2019 11:[address] [facility] PATHOLOGY LAB Disclaimer The performance characteristics of all immunohistochemical and indirect immunofluorescence stains (if any) cited in this report were determined by the Histopathology Laboratory of [facility]. Some of these tests [...] the attending (teaching) pathologist. 06/17/2019 11:[address] [facility] PATHOLOGY LAB Embedded Images 06/17/2019 11:[address] [facility] PATHOLOGY LAB Pathology/Cytology SPECIMEN FROM BONE [...] LAB - PATHOLOGY/CYTOLOGY ORDER DESTINI Final Result [facility] PATHOLOGY LAB [address] [phone] documented in this encounter Visit Diagnoses Not on filedocumented in this encounter Care Teams Commissioner Of Relocation Services Relationship Specialty Start Date End Date Macy Aguayo MD [address] [place] [address] [address] [place] [address] PCP - General 05/12/19 documented as of this encounter
--- OUTSIDE RECORDS SUMMARY | 2025-06-01 10:57 | XMS_ITS | Clinical Summary ---
Author Organization [facility] Address [address] [place] [address] Care Team Providers Care Liquefied Natural Gas Plant Operator Name Role Phone Macy Aguayo MD Primary Care Provider [phone] Source Comments [facility],non-owned Affiliates and Associated Physician Practices is amultiple site organization consisting of ambulatory clinics and hospital sitesin [place], [place], [place] and [place]. This disclosure is being madepursuant to the Care Everywhere program and may not contain all information available regarding this patient. Last updated 18.[facility] Social History Tobacco Use Types Packs/Day Years [...] complete this topic Insurance MEDICARE Care Teams Liquefied Natural Gas Plant Operator Relationship Specialty Start Date End Date Macy Aguayo MD [facility] [place] [address] PCP - General 05/12/19
--- OUTSIDE RECORDS SUMMARY | 2025-06-01 10:57 | XMS_ITS | Encounter Summary ---
Author Organization [facility] Address [address] [place] [address] Care Team Providers Care Electrical And Radio Mechanic Name Role Phone Franco Ohara MD Primary Care Provider [phone] Encounter Details Date Type Department Care Team (Late st Contact Info) Description 05/31/2025 External Device Data [facility] ABSTRACTION [...] ([facility]) Oncology and Hematology - [place] [address] [facility] [address] [place] [address] Elias Bryan MD [address] [facility] [address] [place] [address] documented as of this encounter Visit Diagnoses Not on filedocumented in this encounter Care Teams Electrical And Radio Mechanic Relationship Specialty Start Date End Date Franco Ohara MD PCP - General Family Practice 02/25/23 documented as of this encounter
[2025-06-01 14:23] LABS: Hepatitis B Surface Antigen Negative (Negative)
[2025-06-01 14:29] LABS: HAV RESULT Negative (Negative); Hepatitis B Core IgM Result Negative (Negative)
[2025-06-01 14:34] LABS: Alanine Aminotransferase 20 U/L (6-35); Albumin Level 4.7 g/dL (3.5-5.1); Alkaline Phosphatase 77 U/L (38-126); Anion Gap 9 mmol/L (4-12); Aspartate Amino Transferase 45 U/L (14-36); Bilirubin,Total 0.5 mg/dL (0.2-1.3); Blood Urea Nitrogen 16 mg/dL (7-17); Calcium 10.3 mg/dL (8.4-10.2); Carbon Dioxide 26 mmol/L (22-30); Chloride 102 mmol/L (98-107); Cholesterol 158 mg/dL (0-200); Estimated Glomerular Filt Rate > 60; Glucose 90 mg/dL (65-110); HDL Direct 59 mg/dL; Potassium 4.2 mmol/L (3.4-5.0); Sodium 137 mmol/L (137-145); Total Protein 8.1 g/dL (6.3-8.2); Triglycerides 88 mg/dL (<150)
[2025-06-01 14:39] LABS: Iron 107 ug/dL (37-170)
[2025-06-01 14:57] LABS: Percent Iron Saturation 31 % (20-50)
[2025-06-01 15:21] LABS: Ferritin 88.70 ng/mL (11.1-264)
[2025-06-01 15:32] LABS: Vitamin B12 973.0 pg/mL (239-931)
== END 2025-06-01 10:27 | disposition home or self-care (01) ==
PROVIDERS: PCP Family Medicine; Visit Provider Family Medicine
DX: E55.9 Vitamin D deficiency, unspecified (principal); I10 Essential (primary) hypertension; R74.01 Elevation of levels of liver transaminase levels; G47.33 Obstructive sleep apnea (adult) (pediatric); G89.29 Other chronic pain; E66.9 Obesity, unspecified; Z79.899 Other long term (current) drug therapy
CPT/HCPCS: 36415; 80053; 80061; 80074; 82306; 82607; 82728; 83540; 83550; 85027

== ENCOUNTER 2025-07-15 14:40 | Outpatient (CLI) | payer MEDICARE, SELFPAY ==
--- OUTSIDE RECORDS SUMMARY | 2023-03-26 08:30 | XMS_ITS | Continuity of Care Document ---
Author Organization [facility] Address [address] [place] [address] Phone Care Team Providers Care Fashion Coordinator Name Role Phone Earnest Fortune MD Unavailable Unavailable Allergies, Adverse Reactions, Alerts Substance Reaction Status Criticality aspirin Rash Active No Information Procedures Procedure Date X-ray exam shoulder complete, minimum 2 views Office/outpatient visit,est, low 2022 X-ray exam shoulder complete, minimum 2 views Office/outpatient visit,est, mod 2021 Global/Postop followup visit Global/Postop followup visit X-ray exam shoulder complete, minimum 2 views Office/outpatient visit,new, mod 2021 Advance Directives Directive Yes / No Effective Date File Name No Information Encounters Encounter Description Practice Location Reason(s) For Visit Diagnoses Date Provider Providers Copied on Encounter Office/outpa tient visit,est, low [facility], [address] [place], [place] [address], [id number], tel:[phone] [facility] Left shoulder (chief complaint) Presence of left artificial shoulder joint 3 Tong Tinoco. [address] [place] [address], [facility] [address], [place], [place], [id number] , . tel:[phone] Referring Provider: Earnest Lakhani, [address] [place] [address] [address], [place], [address] . tel:[phone] Office/outpa tient visit,est, [facility], [address] [address], [place], [place], [id number], [place] tel:[phone] [facility] New Shoulder (chief complaint) Pain in right shoulderPresence of left artificial shoulder jointPrimary osteoarthritis, right shoulder 2 Tong T[place]. [address] [facility] [address], [place], [place], [id number] , [place]. tel:[phone] Referring Provider: Earnest Lakhani, [address] [facility] [address] [facility]], [place], [address] . tel:[phone] [facility], [facility] [address], [place], [place], [id number], [place] tel:[phone] [facility] Left shoulder (chief complaint) Presence of left artificial shoulder joint 2 Tong Tin[place]. [address] [facility], [address] [address], [place], [place], [id number] , [place]. tel:[phone] Referring Provider: Earnest Lakhani, [address] [facility] [address] [facility]], [place], [address] . tel:[phone] Office/outpa tient visit,new, [facility], [address] [address], [place], [place], [id number], [place] [phone] [facility] Left Shoulder Pain Pain In Rt Shoulder Also (chief complaint) Primary osteoarthritis, left shoulder 2 Tong Tin[place]. [address] [facility], [facility] [address], [place], [place], [id number] , [place]. tel:[phone] Referring Provider: Earnest Lakhani, [address] [address], [place], [address] . tel:[phone] Family History Family Member Type Diagnosis Age At Onset Sister Problem (finding) Osteoporosis Mother Problem (finding) Hypertension Mother Problem (finding) Gout Mother Problem (finding) Stroke Sister Problem (finding) Osteoarthritis Father Problem (finding) Osteoporosis Mother Problem (finding) Osteoarthritis Mother Problem (finding) Osteoporosis Father Problem (finding) Gout Father Problem (finding) Osteoarthritis Immunizations Vaccine Date Status Comments influenza, injectable, quadr ivalent, (3 years or older) administered Source: Other Provid er Pneumo (2 yrs or older)(PPV) administered Source: Other Provider Payers Payer name Insurance type Covered republican ID Authoriza tion(s) Medicare [place] WPS Part B MB [id number] Annia Blue Cross Marc wayne [facility] [id number] Social History Type Description Quantity Date Captured Comments Alcohol Use Details Unknown Caffeine Use Details Unknown Tobacco Use Status Current non-smoker Smoking Status Never smoker Non-Smoking Tobacco Use Details : No Details Available : No Details Available Sex Female Vital Signs Date / Time: Height Weight BMI Pulse Rate Blood Pressure Temperature Respiratory Rate Body Surface Area Head Circumference Head Circ. Percentile Wt./Bret. Percentile BMI percentile Pulse Ox Inhaled Ox 1:50 PM 65.00 in 92.986 kg (205.00 lbs) 34.1 1 kg/m eter (2) Chief Complaint And Reason For Visit From encounter dated '03/26/2023 13:30'. Left shoulder (chief complaint). Description: Patient comes in today for her yearly follow up of her left reverse total shoulder Reason For Referral Reason For Referral No Information Plan Of Treatment Date Type Action Status Referral Ordered: X-ray exam shoulder complete, minimum 2 views RT ordered Referral Ordered: X-ray exam shoulder complete, minimum 2 views LT ordered Referral Ordered: CT scan Upper Extrem W/o Contrast LT shoulder Appointment date/timeframe: 12/21/2021 ordered History Of Present Illness Encounter Date Complaint History Of Prese nt Illness Left shoulder Patient comes in today for her yearly follow up of her left reverse total shoulder Left shoulder (comments) Kate Butt is an 83-year-old female who returns today for follow-up of her left reverse total shoulder replacement, which was performed a year ago. 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 The patient states her left shoulder is doing well. She denies any pain or waking up night, but she has difficulty taking off the sleeves of her shirts. She is able to move her left shoulder without any difficulty. She denies any pain with her right shoulder, and she is exercising to her bilateral shoulders. New Shoulder Patient comes in today for follow up of her left reverse total shoulder arthroplasty as well as a new problem of right shoulder pain Left shoulder Patient comes in today for follow up of her left reverse total shoulder arthroplasty Left Shoulder Pain P ain In Rt Shoulder Also Patient comes in today for left shoulder pain Functional Status Date Functional Assessmen t No Information Instructions Date Instruction Additional Infor mehul She will call us if she has any worsening symptoms with her shoulder. I advised her to continue with her current exercises.She will follow up as needed. Related to Presence of left artificial shoulder joint Assessments Type Assessment Date assessment Presence of left artificial shou lder joint Patient Care Teams Name Effective Dates (start - stop) Status Members No Information
--- NOTE | ~2025-07-15 | XR_ITS ---
EXAMINATION: XR sacrum coccyx min 2V, 07/15/2025 15:30 CDT HISTORY: M46.1 - Sacroiliitis, not elsewhere classified COMPARISON: No comparisons available. Findings: No acute fracture or malalignment. No sclerosis of the sacroiliac joints with no bridging osteophyte formation or erosions identified Soft tissues unremarkable. Impression: No acute fracture or malalignment. Reviewed, dictated and finalized at location P. Impression: No acute fracture or malalignment.
--- NOTE | ~2025-07-15 | XR_ITS ---
XR lumbar spine 6V w bending Indication: M48.061 - Spinal stenosis, lumbar region without neurogen... Comparison: None Findings: Moderate loss of vertebral height throughout. Mild dextroconvex scoliosis. No fracture identified, no subluxation flexion extension Severe loss of disc height throughout. Soft tissues unremarkable Impression: No acute abnormality. Reviewed, dictated and finalized at location P. Impression: No acute abnormality.
--- NOTE | ~2025-07-15 | MR_ITS ---
EXAMINATION: MR lumbar spine wo con DATE: 07/15/2025 15:22 INDICATION: Spondylosis without myelopathy radiculopathy. TECHNIQUE: Magnetic resonance imaging (MRI) of the lumbar spine was performed without intravenous contrast. Sequences included sagittal T2-weighted FSE, sagittal T2-weighted FS FSE, sagittal T1-weighted FSE, and axial T2-weighted FSE. COMPARISON: None FINDINGS: There is 10 degrees dextroscoliosis of lumbar spine. There is mild chronic anterior wedging of T11 and T12 vertebral bodies. There are Schmorl's nodes at multiple levels. There is moderately decreased disc height from T11-T12 through L2-L3 and severely decreased disc height from L3-L4 through L5-S1. The distal spinal cord signal intensity is normal. The conus medullaris is at L1. 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 The following disc levels are specifically discussed: L1-L2: The disc is bulging. There is moderate bilateral facet joint osteoarthritis. There is mild bilateral neural foraminal stenosis. There is mild central canal stenosis. L2-L3: The disc is bulging and has an annular fissure. There is severe right and mild left facet joint osteoarthritis. There is mild bilateral neural foraminal stenosis. There is mild central canal stenosis. L3-L4: The disc is bulging and has an annular fissure. There is severe bilateral facet joint osteoarthritis. There is mild bilateral neural foraminal stenosis. There is mild central canal stenosis. L4-L5: The disc is bulging and has an annular fissure. There is severe bilateral facet joint osteoarthritis. There is mild bilateral neural foraminal stenosis. There is mild central canal stenosis. L5-S1: The disc is bulging and has an annular fissure. There is severe bilateral facet joint osteoarthritis. There is mild bilateral neural foraminal stenosis. There is mild central canal stenosis. IMPRESSION: 1. Severe lumbar spondylosis. Reviewed, dictated and finalized at location E.
--- OUTSIDE RECORDS SUMMARY | 2025-07-15 14:44 | XMS_ITS | Encounter Summary ---
Author Organization [facility] Address [address] [place] [address] Care Team Providers Care Stippler Name Role Phone Franco Ohara MD Primary Care Provider [phone] Encounter Details Date Type Department Care Team (Late Contact Info) Description 07/15/2019 Chart Note [facility] Radiation Therapy [address] [place] [address] [place] [address] [place] [address] Social History Tobacco Use Types [...] Description 08/09/2025 10:15 AM CDT Office Visit [facility] Oncology and Hematology - [place] [address] [facility] [address] [place] [address] Elias Bryan MD [address] [facility] [address] [place] [address] documented as of this encounter Visit Diagnoses Not on filedocumented in this encounter Care Teams Stippler Relationship Specialty Start Date End Date Franco Ohara MD PCP - General Family Practice 02/25/23 documented as of this encounter
--- OUTSIDE RECORDS SUMMARY | 2025-07-15 14:44 | XMS_ITS | Clinical Summary ---
Author Organization [facility] Address [address] [place] [address] Care Team Providers Care Office Secretary Name Role Phone Franco Ohara MD Primary Care Provider [phone] Allergies Active Allergy Reactions Criticality Noted Date [...] Capsule Take 1 Tablet by mouth. Active [place]-3 Fatty Acids 1,250 mg Capsule Take 1,200 mg by mouth. Active lisinopriL (PRINIVIL) 20 mg tablet 12/22/2020 Active vit B cmplx 3-FA-Vit C-Biotin (RENAVITE-RX RX) 1-60-300 mg-mg-mcg Tablet Take 1 Tablet by mouth daily. Active Fish Oil-[place]-3 Fatty Acids 360-1,200 mg Capsule Take 1 Capsule by mouth. Active omeprazole (PriLOSEC) 40 mg Capsule, Delayed Release(E.C.) Take 40 mg by mouth daily. 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/02/2019 Encounters Date Type Department Care Team Description 06/28/2025 External Device Data ST[facility] ABSTRACTION Provider, Abstract 05/31/2025 External Device Data ST[facility] ABSTRACTION Provider, [...] Comments Blood Pressure 136/76 11/08/2024 11:11 AM HOUSING SPECIALIST Pulse 86 11/08/2024 11:02 AM HOUSING SPECIALIST Temperature 36.8 C (98.3 F) 11/08/2024 11:02 AM HOUSING SPECIALIST Respiratory Rate 15 11/08/2024 11:02 AM HOUSING SPECIALIST Oxygen Saturation 97% 11/08/2024 11:02 AM HOUSING SPECIALIST Inhaled Oxygen Concentration - - Weight 90.4 kg (199 lb 6.4 oz) 11/08/2024 11:02 AM HOUSING SPECIALIST Height 167.6 cm (5' 6) 02/19/2022 9:52 AM CDT Body Mass Index 32.18 02/19/2022 9:52 AM CDT Plan of Treatment Upcoming Encounters Date Type Department Care Team (Late st Contact Info) Description 08/09/2025 10:15 AM CDT Office Visit [facility] Oncology and Hematology - [place] [address] [facility] [address] [place] [address] Elias Bryan MD [address] [facility] [address] [place] [address] Health Maintenance Due Date Last Done Comments DTAP/TDAP/TD VACCINES (1 - Tdap) 1959 PNEUMOCOCCAL VACCINE 50+ YEA RS (1 of 2 - PCV) 1961 ZOSTER VACCINE (1 of 2) 1961 RSV VACCINE (60+ or ) (1 - 1-dose 75+ series) 2017 INFLUENZA VACCINE (#1) 2025 COVID-19 Vaccine (2024-2 6 season) 2025 12/23/2020, 11/25/2020 OSTEOPOROSIS SCREENING 08/27/2028 , 08/16/2020, 02/10/2018, Additional history exists Insurance MEDICARE PART A AND B [facility] SUPP [facility] SUPP MEDICARE PART A AND B Care Teams Office Secretary Relationship Specialty Start Date End Date Franco Ohara MD PCP - General Family Practice 02/25/23
--- OUTSIDE RECORDS SUMMARY | 2025-07-15 14:44 | XMS_ITS | Encounter Summary ---
Author Organization [facility] Address [address] [place] [address] Care Team Providers Care Information Technology Analyst Name Role Phone Macy Aguayo MD Primary Care Provider [phone] Encounter Details Date Type Department Care Team (Late st Contact Info) Description 06/16/[address] [facility] Care Pathology Lab [address] [place] [address] Ubaldo Ugalde MD [address] [place] [id number] Social History Tobacco Use Types Packs/Day [...] Report Bone Marrow Patholog y Report Case: [id number] Authorizing Provider: Ubaldo Ugalde MD Collected: 06/11/2019 08:19 AM Ordering Location: [facility] Care Pathology Lab Received: 06/16/2019 01:06 [...] count. - See comment. 06/17/2019 11:21 AM [facility] at 1121 CDT AP Comment Overall, the bone marrow specimen is normocellular for age with maturing trilineage hematopoiesis and no evidence of lymphoma, a high-grade myeloid neoplasm, or significant dyspoiesis. Concurrent bone marrow flow cytometry ([id number]) demonstrates no evidence of non-Hodgkin lymphoma or a high-grade myeloid neoplasm. Correlation with clinical findings and relevant cytogenetic/molecular testing is required. AQ/SEKOU 06/17/2019 11:21 AM [facility] Peripheral Smear Description Manual Differential Count (100 cells): 69% neutrophils, 23% lymphocytes, 3% monocytes, 1% eosinophils, and 4% bands. / 100 WBCs. Leukocyte number: normal. Granulocyte morphology: normal. Lymphocyte morphology: normal. Erythrocyte number: normal. Erythrocyte morphology: normocytic. Anisopoikilocytosis: not signifcant. Polychromasia: not significant. Platelet number: normal. Platelet morphology: normal. 06/17/2019 11:21 AM [facility] Bone Marrow Aspirate Differential count [...] stain): no ring sideroblasts. 06/17/2019 11:21 AM [facility] Bone Marrow Core Biopsy and [...] adequate storage iron Immunohistochemical staining at [facility] pathology with appropriate controls are as follows: CD3 and CD20 highlight small lymphoid aggregates composed of mixture of T and B lymphocytes , inconclusive for involvement by lymphoma. 06/17/2019 11:21 AM [facility] Clinical History 06/17/2019 11:21 AM [facility] Materials Received Received are 17 slides and 3 blocks labeled as [id number] along with the outside pathology report. [place] [address]. All materials are returned to the referring institution, along with a copy of our final report. 06/17/2019 11:21 AM [facility] Disclaimer The performance characteristics of all immunohistochemical and indirect immunofluorescence stains (if any) cited in this report were determined by the Histopathology Laboratory of [facility]. Some of these tests were developed [...] the attending (teaching) pathologist. 06/17/2019 11:21 AM [facility] Embedded Images 06/17/2019 11:21 AM [facility] Pathology/Cytology SPECIMEN FROM BONE MARROW [...] - PATHOLOGY/CYTOLOGY ORDER DESTINI Final Result [facility] PATHOLOGY LAB [address] [phone] documented in this encounter Visit Diagnoses Not on filedocumented in this encounter Care Teams Information Technology Analyst Relationship Specialty Start Date End Date Macy Aguayo MD [address] [place] [address] [address] [place] [address] PCP - General 05/12/19 documented as of this encounter
--- OUTSIDE RECORDS SUMMARY | 2025-07-15 14:44 | XMS_ITS | Clinical Summary ---
Author Organization [facility] Address [address] [place] [address] Care Team Providers Care Finishing Supervisor Plastic Sheets Name Role Phone Macy Aguayo MD Primary Care Provider [phone] Source Comments [facility] [employer],non-owned Affiliates and Associated Physician Practices is amultiple site organization consisting of ambulatory clinics and hospital sitesin [place], [place], [place] and [place]. This disclosure is being madepursuant to the Care Everywhere program and may not contain all information available regarding this patient. Last updated 18.[facility] [employer] Social History Tobacco Use Types Packs/Day Years [...] yrs (1 - 1-dose 75+ series) 2017 DEPRESSION SCREENING 10/13/2024 COVID-19 VACCINE ( - 2023-2 5 season) 2025 INFLUENZA VACCINE (#1) 2025 HEPATITIS B VACCINE [...] complete this topic Insurance MEDICARE Care Teams Finishing Supervisor Plastic Sheets Relationship Specialty Start Date End Date Macy Aguayo MD [facility] [place] [address] PCP - General 05/12/19
--- OUTSIDE RECORDS SUMMARY | 2025-07-15 14:44 | XMS_ITS | Encounter Summary ---
Author Organization [facility] Address [address] [facility] [place] [address] Care Team Providers Care Medical Insurance Coder Name Role Phone Macy Aguayo MD Primary Care Provider [phone] Encounter Details Date Type Department Care Team (Late st Contact Info) Description 06/11/2019 Lab Requisition [facility] Care Pathology Lab [address] [place] [address] Ubaldo Ugalde MD [address] [place] [address] Social History Tobacco Use Types Packs/Day [...] AM CDT) Case Report Flow Cytometry Case: [id number] Authorizing Provider: Ubaldo Ugalde MD Collected: 06/11/2019 09:21 AM Ordering Location: [facility] Care Pathology Lab Received: 06/11/2019 12:11 [...] cytometry specimen is reviewed for quality assurance monitor purposes. Overall, the bone marrow aspirate specimen shows no evidence of involvement by non-Hodgkin lymphoma or a high-grade myeloid neoplasm. Correlation with clinical findings, concurrent bone marrow core biopsy, and relevant cytogenetic/molecu lar studies is required. 06/11/2019 3:49 PM [facility] Flow Cytometry Results Differential Result Comment Flow Cell Count /uL 33,000 Total Viability % 92.0 Lymphocytes % 14 Dim CD45 Region % 2 Monocytes % 6 Granulocytes % 77 06/11/2019 3:49 PM [facility] Reason for test LARGE B-CELL LYMPHOMA 06/11/2019 3:49 PM [facility] Client Specimen ID # [id number] 06/11/2019 3:49 PM [facility] Number of markers 10 were performed. A-1 Flow CD3 A-3 Flow CD10 A-5 Flow CD20 A-6 Flow CD23 A-2 Flow CD5 A-4 Flow CD19 A-7 Flow CD34 A-8 Flow CD45 A-9 [place]+CD19+ A-10 Lambda+CD19+ 06/11/2019 3:[address] [facility] Disclaimer Test performed at [facility], [address] [place] [address], [address]. *The established laboratory minimum viability is 70%. [...] complexity clinical testing. 06/11/2019 3:49 PM CDT [facility] PATH[facility] LAB Embedded Images 3:49 PM CDT [facility] PATH[facility]Y LAB Pathology/Cytolo gy BONE MARROW SPECIMEN / Unknown 06/11/2019 9:21 AM CDT 06/11/2019 12:11 PM CDT Ubaldo Ugalde MD LAB - PATHOLOGY/CYTOLOGY ORDER DESTINI Final Result [facility] PATHOLOGY LAB [address] [phone] documented in this encounter Visit Diagnoses Not on filedocumented in this encounter Care Teams Medical Insurance Coder Relationship Specialty Start Date End Date Macy Aguayo MD [facility] [place] [phone] PCP - General 05/12/19 documented as of this encounter
--- OUTSIDE RECORDS SUMMARY | 2025-07-15 14:44 | XMS_ITS | Encounter Summary ---
Author Organization [facility] Address [address] [facility] [place] [address] Care Team Providers Care Laboratory Sample Carrier Name Role Phone Macy Aguayo MD Primary Care Provider [phone] Encounter Details Date Type Department Care Team (Late st Contact Info) Description 05/12/2019 Lab Requisition [facility] Care Pathology Lab [address] [place] [address] Ubaldo Ugalde MD [address] [place] [id number] Social History Tobacco Use Types Packs/Day [...] CDT) Case Report Surgical Pathology Report Case: [id number] Authorizing Provider: Ubaldo Ugalde MD Collected: 05/10/2019 10:31 AM Pathologist: Roxanna Mason MD Received: 05/12/2019 10:31 AM Specimen: Lymph Node Biopsy, [id number] 05/13/2019 12:40 PM CDT [facility] [...] is performed on the tissue in the [facility] Department of Pathology to further characterize [...] cores of the tissue. Concurrent flow cytometry ([facility], [id number]) describes two cell populations. The first population, comprising 29% of the sample, is a [id number] monoclonal B-cell population. The second population, estimated [...] biopsy is advised. KR 05/13/2019 12:40 PM [facility] Clinical History Left inguinal lymphadenopathy. 05/13/2019 12:40 PM [facility] Materials Received Received are 2 slides and 1 block labeled as [id number] along with the outside pathology report. [place] [address]. All materials are returned to the referring institution, along with a copy of our final report. 05/13/2019 12:40 PM [facility] Disclaimer The performance characteristics of all immunohistochemical and indirect immunofluorescence stains (if any) cited in this report were determined by the Histopathology Laboratory of [facility]. Some of these tests were developed by [...] pathologist. 05/13/2019 12:40 PM CDT [facility] PATH[facility] Embedded Images 05/13/2019 12:40 PM T [facility] PATH[facility] Pathology/Cytolo gy BIOPSY OF LYMPH NODE / Unknown 05/10/2019 10:31 AM CDT 05/12/2019 10:31 AM CDT Ubaldo Ugalde MD LAB - PATHOLOGY/CYTOLOGY ORDER DESTINI Final Result [facility] [address] [phone] documented in this encounter Visit Diagnoses Not on filedocumented in this encounter Care Teams Laboratory Sample Carrier Relationship Specialty Start Date End Date Macy Aguayo MD [address] [place] [address] [address] [place] [phone] PCP - General 05/12/19 documented as of this encounter
--- OUTSIDE RECORDS SUMMARY | 2025-07-15 14:44 | XMS_ITS | Clinical Summary ---
Author Organization [facility] Address [address] [address] Phone Care Team Providers Care Securities Compliance Examiner Name Role Phone Macy Aguayo MD Unavailable [phone] Madhu Flaherty DO Unavailable [phone] Macy Aguayo MD Primary Care Provider [phone] Allergies Active Allergy Reactions Criticality Noted Date [...] (MULTIVITAMIN PO) Take by mouth daily. Active Duarte-3 Fatty Acids (FISH OIL) 1200 MG Capsule Take 1,200 mg by mouth daily. Active Magnesium 500 MG TabletIndicatio ns:take 3 times a week Take 1 Tab by mouth. Active Selenium 100 MCG Capsule Take 1 Cap by mouth daily. Active Acetylcysteine (U-OCNIKD-M-CYS TEINE PO) Take 300 mg by mouth [...] Comments Hepatitis C Virus (HCV) Screening 1940 Medicare Initial AWV [id number] 09/12/2008 Pneumococcal Immunization (50+ years) (2 of 2 - PCV20 or PCV21) 08/26/2017 08/26/2016 Respiratory Syncytial Virus (RSV) Immunization (Adult) (1 - 1-dose 75+ series) 2017 Influenza Immunization (#1) 2025 10/0 10/2017, 08/17/2017, 08/21/2016, Additional history exists SARS-COV-2 Immunization ( season) 2025 03/06/2022, 08/28/2021, 12/23/2020, Additional history exists Pneumococcal [...] age to complete this topic Insurance MEDICARE [employer] Care Teams Securities Compliance Examiner Relationship Specialty Start Date End Date Macy Aguayo MD [address] [place] [address] [place] [address] PCP - General Biodiesel Plant Operations Engineer 03/06/17 Macy Aguayo MD [address] [place] [address] [place] [place] [address] Biodiesel Plant Operations Engineer 11/05/16 Madhu Flaherty DO [address] [place] [address] [place] [place] [address] Consulting Physician Gastroenterology 03/06/17
== END 2025-07-15 14:41 | disposition home or self-care (01) ==
PROVIDERS: PCP Family Medicine; Visit Provider Nurse Practitioner Adult Health
DX: M46.1 Sacroiliitis, not elsewhere classified (principal); M47.816 Spondylosis without myelopathy or radiculopathy, lumbar region; M48.061 Spinal stenosis, lumbar region without neurogenic claudication
CPT/HCPCS: 72114; 72148; 72220

== ENCOUNTER 2025-08-09 09:30 | Day surgery (SDC) | payer MEDICARE, SELFPAY ==
[2025-08-03 13:26] VITALS: BMI 33.3
--- NOTE | ~2025-08-09 | XR_ITS ---
EXAMINATION: XR fluoroscopy no charge DATE: 08/09/2025 11:27 INDICATION: Right L3, L4 and L5 medial branch blocks TECHNIQUE: 8 fluoroscopic images of the lumbar spine were obtained during pain management procedure performed by Dr. Pollard. Radiologist was not present for the imaging or procedure. The amount of fluoroscopy time used during this procedure was 0.7 minutes. The cumulative radiation dose was 14.39 mGy. COMPARISON: None. FINDINGS/IMPRESSION: Images demonstrate needles advanced with small amounts of injected contrast extending from the tips of needles positioned along the junction of the transverse and superior articular processes of L4, L5 and S1 in expected position of the right L3, L4 and L5 medial branches. See procedure note for further detail. Reviewed, dictated and finalized at location A.
[2025-08-09 10:25] VITALS: BP 149/78; PULSE 84; RESP 17; TEMP 37.3; O2SAT 100
--- NOTE | 2025-08-09 10:47 | WPDHPUPDATE1 ---
History and Physical Update Update Date/Time: 08/09/25 10:47 History and Physical has been reviewed, including an updated exam of the patient. There are NO changes in the patient's condition. Risks, benefits, and alternatives have been discussed and questions answered. Patient agrees to proceed with procedure.
--- NOTE | 2025-08-09 10:48 | W.PM.PROC2 ---
Procedure Note - Detailed Date of Procedure 08/09/25 Pre-op Diagnosis Lumbar Spondylosis w/o Myelopathy or Radiculopathy Post-op Diagnosis Same Procedure Performed Diagnostic Right Lumbar Medial Branch/Dorsal Ramus Blocks at L3, L4, L5 Treating the Ipsilateral L4-5, L5-S1 Facet Joints Under Fluoroscopic Guidance and with Contrast Control. (2 levels blocked). Surgeon Chas Pollard MD Animal Anatomy Teacher None. Anesthesia Local Description of Procedure INFORMED CONSENT: Risks, benefits and alternatives to the procedure were discussed in detail with the patient who expressed explicit understanding and consent to proceed. Patient was informed verbally and in written form regarding the risks associated with the procedure including the low risk of serious infection, bleeding/bruising, allergic reaction, nerve or organ injury, paralysis, procedural site pain or discomfort, worsening pain and/or mobility, failure to treat and/or disfigurement. The patient expressed explicit understanding and consent to proceed. All materials required for the procedure were available prior to procedure start. Site and side were marked prior to procedure and confirmed in the presence of the patient. PROCEDURE IN DETAIL: The patient was brought to the procedural suite and placed in the prone position. Patient was made comfortable with use of pillows under the head/chest, hips and ankles. Skin overlying the injection site on the affected side(s) was prepared broadly with ChloraPrep applicator and draped in a sterile manner. Aseptic technique was used throughout. The endplates of the vertebral bodies at the site(s) of interest were aligned in the AP view. Ipsilateral oblique angulation was utilized to optimize visualization of the intersection between the superior articulating process and transverse process at each target site. Local anesthesia was established by infiltration with approximately 5 mL of 1% lidocaine via a 1-1/2 inch 27-gauge needle. A 25-gauge 5.0 inch Quincke spinal needle was advanced until the needle tip contacted periosteum at the target site, right L3. Lateral view was utilized to confirm the appropriate placement of the needle tip just anterior to the facet line and superior to the pedicle. In the Lateral view, 0.25 mL of Omnipaque 300 contrast medium was injected after negative aspiration for CSF, blood or other bodily fluid, showing appropriate extra-articular spread of contrast without evidence of intravascular, foraminal or intrathecal placement. A 0.5 mL solution of 0.5% PF bupivacaine was injected after negative repeat aspiration. Appropriate spread of the injectate was confirmed with washout of previously injected contrast. No parasthesias were elicited. Needle was removed completely intact without difficulty. The same exact procedure was repeated for all remaining levels on the ipsilateral side, right L4, L5 medial branches/dorsal ramus, modified as necessary to accommodate for the new target location with identical findings and results and no evidence of complication. Images were saved and documented in the patient chart. Patient's skin was cleaned and sterile bandage applied. The patient tolerated the procedure well. The patient was transported to the recovery area in stable condition where they were observed for an appropriate amount of time prior to discharge, without evidence of complication. Patient was instructed on the appropriate completion of a pain diary over the next 12-24 hours. The patient was instructed to avoid excessive activity for the next 48 hours, including climbing and frequent use of stairs. Showers only for 48 hours. They were instructed not to drive or operate heavy machinery for 24 hours. They are to monitor for severe headaches, fevers, chills, night sweats, erythema/swelling at the site or any other signs of infection, bleeding/bruising, bowel or bladder changes as well as new pain, weakness or numbness in the upper or lower extremity. Should they notice these changes, they are instructed to call our office immediately or report directly to the nearest Emergency Department if no answer or if after posted office hours. COMPLICATIONS: None COMMENTS: None CONTRAST WASTED: 29.25mL Omnipaque 300. Complications No immediate complications Condition Stable Disposition Same day [facility] Billing Surgery - Charge Forward: Surgery Billing
--- OUTSIDE RECORDS SUMMARY | 2025-08-09 11:09 | XMS_ITS | Clinical Summary ---
Author Organization [facility] Address [address] [place] [address] Care Team Providers Care Usability Architect Name Role Phone Macy Aguayo MD Primary Care Provider [phone] Source Comments [facility] [employer],non-owned Affiliates and Associated Physician Practices is amultiple site organization consisting of ambulatory clinics and hospital sitesin [place], [place], [place] and [place]. This disclosure is being madepursuant to the Care Everywhere program and may not contain all information available regarding this patient. Last updated 18.[facility] [employer] Social History Tobacco Use Types Packs/Day Years [...] complete this topic Insurance MEDICARE Care Teams Usability Architect Relationship Specialty Start Date End Date Macy Aguayo MD [facility] [place] [address] PCP - General 05/12/19
--- OUTSIDE RECORDS SUMMARY | 2025-08-09 11:09 | XMS_ITS | Clinical Summary ---
Author Organization [facility] Address [address] [place] [address] Care Team Providers Care Client Manager Name Role Phone Franco Ohara MD Primary Care Provider [phone] Allergies Active Allergy Reactions Criticality Noted Date [...] Capsule Take 1 Tablet by mouth. Active [place]-3 Fatty Acids 1,250 mg Capsule Take 1,200 mg by mouth. Active lisinopriL (PRINIVIL) 20 mg tablet 12/22/2020 Active vit B cmplx 3-FA-Vit C-Biotin (RENAVITE-RX RX) 1-60-300 mg-mg-mcg Tablet Take 1 Tablet by mouth daily. Active Fish Oil-[place]-3 Fatty Acids 360-1,200 mg Capsule Take 1 Capsule by mouth. Active omeprazole (PriLOSEC) 40 mg Capsule, Delayed Release(E.C.) Take 40 mg by mouth daily. 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8 C (98.3 F) 11/08/2024 11:02 AM NURSING TECH Respiratory Rate 15 11/08/2024 11:02 AM NURSING TECH Oxygen Saturation 97% 11/08/2024 11:02 AM NURSING TECH Inhaled Oxygen Concentration - - Weight 90.4 kg (199 lb 6.4 oz) 11/08/2024 11:02 AM NURSING TECH Height 167.6 cm (5' 6) 02/19/2022 9:52 AM CDT Body Mass Index 32.18 02/19/2022 9:52 AM CDT Plan of Treatment Health Maintenance Due Date Last Done Comments DTAP/TDAP/TD VACCINES (1 - Tdap) 1959 PNEUMOCOCCAL VACCINE 50+ YEA RS (1 of 2 - PCV) 1959 Traditional Medicare (ACO) A nnual Wellness Visit 1959 ZOSTER VACCINE (1 of 2) 1959 RSV VACCINE (60+ or ) (1 - 1-dose 75+ series) 2017 INFLUENZA VACCINE (#1) 2025 COVID-19 Vaccine (3 - 2024-2 6 season) 2025 12/23/2020, 11/25/2020 OSTEOPOROSIS SCREENING 08/27/2028 , 08/16/2020, 02/10/2018, Additional history exists Insurance MEDICARE PART A AND B [facility] SUPP [facility] SUPP MEDICARE PART A AND B Care Teams Client Manager Relationship Specialty Start Date End Date Franco Ohara MD PCP - General Family Practice 02/25/23
--- OUTSIDE RECORDS SUMMARY | 2025-08-09 11:09 | XMS_ITS | Clinical Summary ---
Author Organization [facility] Address [id number] [address] Phone Care Team Providers Care Invas Tech Name Role Phone Macy Aguayo MD Unavailable [phone] Madhu Flaherty DO Unavailable [phone] Macy Aguayo MD Primary Care Provider [phone] Allergies Active Allergy Reactions Criticality Noted Date [...] (MULTIVITAMIN PO) Take by mouth daily. Active Cambridge-3 Fatty Acids (FISH OIL) 1200 MG Capsule Take 1,200 mg by mouth daily. Active Magnesium 500 MG TabletIndicatio ns:take 3 times a week Take 1 Tab by mouth. Active Selenium 100 MCG Capsule Take 1 Cap by mouth daily. Active Acetylcysteine (B-WFURGO-A-CYS TEINE PO) Take 300 mg by mouth [...] age to complete this topic Insurance MEDICARE [facility] Care Teams Invas Tech Relationship Specialty Start Date End Date Macy Aguayo MD [address] [place] [address] [place] [address] PCP - General Superintendent Power 03/06/17 Macy Aguayo MD [address] [place] [address] [place] [address] Superintendent Power 11/05/16 Madhu Flaherty DO [address] [place] [address] [place] [address] Consulting Physician Gastroenterology 03/06/17
--- OUTSIDE RECORDS SUMMARY | 2025-08-09 11:09 | XMS_ITS | Encounter Summary ---
Author Organization [facility] Address [address] [place] [address] Care Team Providers Care Nurse Ob Name Role Phone Macy Aguayo MD Primary Care Provider [phone] Encounter Details Date Type Department Care Team (Late st Contact Info) Description 05/12/2019 Lab Requisition [facility] Care Pathology Lab [address] [place] [address] Ubaldo Ugalde MD [address] [place] [id number] Social History Tobacco Use Types Packs/Day [...] CDT) Case Report Surgical Pathology Report Case: [id number] Authorizing Provider: Ubaldo Ugalde MD Collected: 05/10/2019 10:31 AM Pathologist: Roxanna Mason MD Received: 05/12/2019 10:31 AM Specimen: Lymph Node Biopsy, [id number] 05/13/2019 12:40 PM CDT [facility] [...] is performed on the tissue in the [facility] Department of Pathology to further characterize [...] cores of the tissue. Concurrent flow cytometry ([facility], [id number]) describes two cell populations. The first population, comprising 29% of the sample, is a [id number] monoclonal B-cell population. The second population, estimated [...] biopsy is advised. KR 05/13/2019 12:40 PM [facility] Clinical History Left inguinal lymphadenopathy. 05/13/2019 12:40 PM [facility] PATHOLOGY LAB Materials Received Received are 2 slides and 1 block labeled as [id number] along with the outside pathology report. [place] [address]. All materials are returned to the referring institution, along with a copy of our final report. 05/13/2019 12:40 PM [facility] PATHOLOGY LAB Disclaimer The performance characteristics of all immunohistochemical and indirect immunofluorescence stains (if any) cited in this report were determined by the Histopathology Laboratory of [facility]. Some of these tests were developed [...] pathologist. 05/13/2019 12:40 PM CDT [facility] PATHOLOGY LAB Embedded Images 05/13/2019 12:40 PM T [facility] PATHOLOGY LAB Pathology/Cytolo gy BIOPSY OF LYMPH NODE / Unknown 05/10/2019 10:31 AM CDT 05/12/2019 10:31 AM CDT Ubaldo Ugalde MD LAB - PATHOLOGY/CYTOLOGY ORDER DESTINI Final Result [facility] PATHOLOGY LAB [address] [phone] documented in this encounter Visit Diagnoses Not on filedocumented in this encounter Care Teams Nurse Ob Relationship Specialty Start Date End Date Macy Aguayo MD [address] [place] [address] [address] [place] [phone] PCP - General 05/12/19 documented as of this encounter
--- OUTSIDE RECORDS SUMMARY | 2025-08-09 11:09 | XMS_ITS | Encounter Summary ---
Author Organization [facility] Address [address] [place] [address] Care Team Providers Care Gear And Spline Grinder Name Role Phone Macy Aguayo MD Primary Care Provider [phone] Encounter Details Date Type Department Care Team (Late st Contact Info) Description 06/11/2019 Lab Requisition [facility] Care Pathology Lab [address] [place] [address] Ublado Ugalde MD [address] [place] [id number] Social History Tobacco Use Types Packs/Day [...] AM CDT) Case Report Flow Cytometry Case: [id number] Authorizing Provider: Ubaldo Ugalde MD Collected: 06/11/2019 09:21 AM Ordering Location: [facility] Care Pathology Lab Received: 06/11/2019 12:11 [...] cytometry specimen is reviewed for quality assurance calibrator purposes. Overall, the bone marrow aspirate specimen shows no evidence of involvement by non-Hodgkin lymphoma or a high-grade myeloid neoplasm. Correlation with clinical findings, concurrent bone marrow core biopsy, and relevant cytogenetic/molecu lar studies is required. 06/11/2019 3:49 PM [facility] PATH[facility] Flow Cytometry Results Differential Result Comment Flow Cell Count /uL 33,000 Total Viability % 92.0 Lymphocytes % 14 Dim CD45 Region % 2 Monocytes % 6 Granulocytes % 77 06/11/2019 3:49 PM CDT [facility] Reason for test LARGE B-CELL LYMPHOMA 06/11/2019 3:49 PM [facility] Client Specimen ID # [id number] 06/11/2019 3:49 PM [facility] Number of markers 10 were performed. A-1 Flow CD3 A-3 Flow CD10 A-5 Flow CD20 A-6 Flow CD23 A-2 Flow CD5 A-4 Flow CD19 A-7 Flow CD34 A-8 Flow CD45 A-9 [place]+CD19+ A-10 Lambda+CD19+ 06/11/2019 3:49 PM [facility] Disclaimer Test performed at [facility], [address] [place] [address], [address]. *The established laboratory minimum viability is 70%. [...] complexity clinical testing. 06/11/2019 3:49 PM CDT [facility] PATHOLOGY LAB Embedded Images 3:49 PM CDT [facility] PATH[facility] LAB Pathology/Cytolo gy BONE MARROW SPECIMEN / Unknown 06/11/2019 9:21 AM CDT 06/11/2019 12:11 PM CDT Ubaldo Ugalde MD LAB - PATHOLOGY/CYTOLOGY ORDER DESTINI Final Result [facility] PATHOLOGY LAB [address] [phone] documented in this encounter Visit Diagnoses Not on filedocumented in this encounter Care Teams Gear And Spline Grinder Relationship Specialty Start Date End Date Macy Aguayo MD [facility] [place] [phone] PCP - General 05/12/19 documented as of this encounter
--- OUTSIDE RECORDS SUMMARY | 2025-08-09 11:10 | XMS_ITS | Encounter Summary ---
Author Organization [facility] Address [address] [facility] [place] [place] [address] Care Team Providers Care Route Contractor Name Role Phone Macy Aguayo MD Primary Care Provider [phone] Encounter Details Date Type Department Care Team (Late st Contact Info) Description 06/16/2019 Lab Requisition [facility] Care Pathology Lab [address] [place] [address] Ubaldo Ugalde MD [address] [place] [address] Social History Tobacco Use Types Packs/Day [...] Report Bone Marrow Patholog y Report Case: [id number] Authorizing Provider: Ubaldo Ugalde MD Collected: 06/11/2019 [...] - See comment. 06/17/2019 11:21 AM [facility] PATH[facility] at 1121 CDT AP Comment Overall, the bone marrow specimen is normocellular for age with maturing trilineage hematopoiesis and no evidence of lymphoma, a high-grade myeloid neoplasm, or significant dyspoiesis. Concurrent bone marrow flow cytometry ([id number]) demonstrates no evidence of non-Hodgkin lymphoma or a high-grade myeloid neoplasm. Correlation with clinical findings and relevant cytogenetic/molecular testing is required. AQ/SEKOU 06/17/2019 11:21 AM [facility] Peripheral Smear Description Manual Differential Count (100 cells): 69% neutrophils, 23% lymphocytes, 3% monocytes, 1% eosinophils, and 4% bands. / 100 WBCs. Leukocyte number: normal. Granulocyte morphology: normal. Lymphocyte morphology: normal. Erythrocyte number: normal. Erythrocyte morphology: normocytic. Anisopoikilocytosis: not signifcant. Polychromasia: not significant. Platelet number: normal. Platelet morphology: normal. 06/17/2019 11:21 AM [facility] Bone Marrow Aspirate Differential [...] no ring sideroblasts. 06/17/2019 11:21 AM [facility] Bone Marrow Core Biopsy [...] involvement by lymphoma. 06/17/2019 11:21 AM [facility] Clinical History 06/17/2019 11:21 AM [facility] Materials Received Received are 17 slides and 3 blocks labeled as [id number] along with the outside pathology report. [place] [address]. All materials are returned to the referring institution, along with a copy of our final report. 06/17/2019 11:21 AM [facility] Disclaimer The performance characteristics of all immunohistochemical and indirect immunofluorescence stains (if any) cited in this report were determined by the Histopathology Laboratory of [facility]. Some of these tests were developed by [...] attending (teaching) pathologist. 06/17/2019 11:21 AM [facility] Embedded Images 06/17/2019 11:21 AM [facility] Pathology/Cytology SPECIMEN FROM BONE [...] - PATHOLOGY/CYTOLOGY ORDER DESTINI Final Result [facility] PATH[facility] LAB [address] [phone] documented in this encounter Visit Diagnoses Not on filedocumented in this encounter Care Teams Route Contractor Relationship Specialty Start Date End Date Macy Aguayo MD [address] [place] [address] [address] [place] [phone] PCP - General 05/12/19 documented as of this encounter
--- OUTSIDE RECORDS SUMMARY | 2025-08-09 11:10 | XMS_ITS | Encounter Summary ---
Author Organization [facility] Address [address] [place] [address] Care Team Providers Care Skating Carhop Name Role Phone Franco Ohara MD Primary Care Provider [phone] Encounter Details Date Type Department Care Team (Late st Contact Info) Description 07/15/2019 Chart Note [facility] Radiation Therapy [address] [place] [phone] [place] [address] [place] [address] Social History Tobacco Use Types [...] on file documented as of this encounter Visit Diagnoses Not on filedocumented in this encounter Care Teams Skating Carhop Relationship Specialty Start Date End Date Franco Ohara MD PCP - General Family Practice 02/25/23 documented as of this encounter
[2025-08-09 11:19] VITALS: BP 161/129; PULSE 88; RESP 16; O2SAT 97
[2025-08-09 11:23] VITALS: BP 165/74; PULSE 87; RESP 22; O2SAT 96
[2025-08-09] MEDS: BUPivacaine HCL 0.5% 10 ML AMP INFILTRATE (11:24)
[2025-08-09 11:28] VITALS: BP 150/87; PULSE 77; RESP 20; O2SAT 99
== END 2025-08-09 11:44 | disposition home or self-care (01) ==
PROVIDERS: PCP Family Medicine; Visit Provider Anesthesiology Pain Medicine
PROC: (CPT 64493; principal; 2025-08-09 11:10)
DX: M47.816 Spondylosis without myelopathy or radiculopathy, lumbar region (principal)
CPT/HCPCS: 64493; 64494; 99199

== ENCOUNTER 2025-08-29 10:06 | Outpatient (CLI) | payer MEDICARE, SELFPAY ==
--- NOTE | ~2025-08-29 | DEXA_ITS ---
Bone Density Report Name: JACQUELYN YOUNGBLOOD Age: 84 Sex: Female Ethnicity: White Date of : 1940 Indication: postmenopausal; screening for osteoporosis; height loss; prior fracture; cancer; Referring Provider: KRISTAN OZUNA Study: Bone densitometry was performed. Exam Date: August 29, 2025 Accession number: [id number] Bone Density: Region BMD T-score Z-score Classification AP Spine(L1-L4) 1.119 0.7 3.4 Normal Femoral Neck (Left) 0.647 -1.8 0.6 Osteopenia Total Hip (Left) 0.909 -0.3 2.0 Normal World Health Organization criteria for BMD impression classify patients as: Normal (T-score at or above -1.0), Osteopenia (T-score between -1.0 and -2.5), or Osteoporosis (T-score at or below -2.5). 10-year Fracture Risk: FRAX not reported because: Prior hip or vertebral fracture Previous Exams: Region Exam Age BMD T-score BMD Change BMD Change Date g/cm2 vs Baseline vs Previous AP Spine (L1-L4) 08/29/2025 84 1.119 0.7 -0.076 (-6.4%) -0.077 (-6.4%) 08/27/2023 82 1.195 1.3 0.001 (0.0%) 0.017 (1.4%) 08/16/2020 79 1.179 1.2 -0.016 (-1.4%) -0.016 (-1.4%) 02/10/2018 77 1.195 1.3 Total Hip(Left) 08/29/2025 84 0.909 -0.3 0.016 (1.8%) 0.005 (0.6%) 08/27/2023 82 0.904 -0.3 0.011 (1.2%) 0.033 (3.8%)* 08/16/2020 79 0.871 -0.6 -0.022 (-2.5%) -0.022 (-2.5%) 02/10/2018 77 0.893 -0.4 *Denotes significance at 95% confidence level, LSC for AP Spine = 0.022 g/cm2, LSC for Total Hip = 0.027 g/cm2 Clinical Information Provided by Patient: Have had a previous hip or vertebral fracture Has had a low trauma fracture Has used the following medications: Vitamin D, Calcium Has the following medical conditions: Cancer Patient maximum height was 67.75 Menopause Age: 55 No regular weight bearing exercise Onset of menses at age 14 Number of children 2 Impression: The patient has low bone mass, based on the Left Femoral Neck T-score. The patient has risk factors, including: previous fracture. The BMD for the AP Spine (L1-L4) decreased, changing by -6.4% since the last DXA exam. Discussion: INCREASED RISK OF FRACTURE DUE TO HISTORY OF FRACTURE. The patient's previous fracture puts the patient at high risk of a future fracture. In untreated patients, the risk of osteoporotic fracture increases approximately two-fold for each 1.0 SD decrease in T-score. Low bone density is not the only risk factor for fracture; also consider factors such as patient's age, frailty or poor health, risk of falling, risk of injury, previous osteoporotic fracture, family history of osteoporosis, cigarette smoking, low body weight, etc. Not everyone with a low trauma fracture has osteoporosis; osteomalacia and other metabolic bone disorders should also be considered. Patients who have osteoporosis should be evaluated for specific diseases and conditions (secondary causes) that may cause or contribute to bone loss and fracture risk. National Osteoporosis Foundation (NOF) recommends pharmacologic intervention for patients with a prior hip or vertebral fracture regardless of BMD T-score. The patient should follow a healthful lifestyle (good nutrition with adequate calcium and vitamin D, and appropriate weight-bearing exercise). Follow-Up: Consider a repeat BMD and Vertebral Fracture Assessment (VFA) exam in 2 years or sooner if medically necessary, to reassess this patient's status. Reported by: YOCASTA on 08/29/2025 10:54:00 AM. Reviewed, dictated and finalized at location A.
== END 2025-08-29 10:07 | disposition home or self-care (01) ==
LOC: ANHFOHIMG 10:06
PROVIDERS: PCP Family Medicine; Visit Provider Family Medicine
DX: M85.852 Other specified disorders of bone density and structure, left thigh (principal); Z78.0 Asymptomatic menopausal state
CPT/HCPCS: 77080